=== PATIENT | male | born 1955 | race Caucasian/White ===

== ENCOUNTER 2021-11-22 11:14 | Emergency (ER) | payer MEDICARE, OTHER, SELFPAY ==
--- NOTE | ~2021-11-22 | CT_ITS ---
EXAMINATION: CT HEAD WITHOUT CONTRAST CLINICAL INFORMATION: Head trauma COMPARISON: None. TECHNIQUE: Contiguous axial imaging was performed from the skull base to vertex without intravenous administration of contrast. This CT examination was performed using dose optimization techniques as appropriate, variously including the following: *Automated exposure control *Adjustment of mA and/or kV according to patient size (this includes techniques or standardized protocols for targeted exams where dose is matched to indication/reason for exam; i.e. extremities or head) *Use of iterative reconstruction technique DLP: 1273 mGy-cm FINDINGS: There is no evidence of acute intracranial hemorrhage or territorial infarction. Chronic white matter small vessel ischemic changes. No abnormal mass effect or midline shift is seen. Ray to white matter differentiation is well preserved. No extra-axial fluid collections are identified. The ventricles are normal in size. There is no abnormal attenuation within the brain parenchyma. Soft tissue swelling with overlying skin boo along the right midline vertex the skull. Osseous structures and soft tissues are otherwise normal. The mastoid air cells and visualized portions of the paranasal sinuses are well aerated. CT/CT cervical spine wo con IMPRESSION: 1. No acute intracranial pathology. 2. Chronic white matter small vessel changes. 3. Soft tissue swelling with overlying skin boo along the right midline vertex the skull. EXAMINATION: Noncontrast CT scan of the cervical spine. INDICATION: Trauma COMPARISON: None. TECHNIQUE: Helical, multidetector axial images were obtained from the occiput to the upper thorax. Coronal and sagittal reformats of the cervical spine were provided for interpretation. DLP: 1273 mGy-cm FINDINGS: No acute fractures or dislocations of the cervical spine are seen. Multilevel degenerative changes with disc space narrowing, vacuum disc, osteophyte formation, and facet arthropathy. Anatomic alignment and positioning of the vertebral bodies and posterior elements is noted. The atlantoaxial joint and craniovertebral articulations are normal without evidence of subluxation. There is no prevertebral soft tissue swelling. The thyroid gland and visualized portions of the lung apices and mediastinum are unremarkable. Atherosclerotic calcifications are noted. IMPRESSION: 1. No acute visible fracture or dislocation. 2. Multilevel degenerative changes of the cervical spine.
[2021-11-22 11:32] VITALS: BP 154/78; PULSE 66; O2SAT 99
[2021-11-22 11:35] VITALS: BP 143/78; PULSE 88; RESP 18; TEMP 36.6; O2SAT 98; BMI 25.7
--- NOTE | 2021-11-22 11:41 | ED_ITS ---
HPI - Head Injury General Chief complaint: Head Injury Stated complaint: FALL,HIT HEAD,+CCOLLAR,ETOH USE PER EMS Time Seen by Provider: 11/22/21 11:39 Source: patient and EMS Mode of arrival: EMS Limitations: no limitations History of Present Illness HPI Narrative: 65-year-old male brought in by ambulance after fell when he was drunk. Patient lost balance and fell backward hitting his head patient was drinking at the bar, patient sustained a laceration in the back of his head that was wrapped by EMS patient persist bleeding forearm back of his scalp. Patient decline no neck pain, no back pain, no CP, no SOB, no abdominal pain, no extremity pain. Related Data Allergies Allergy/AdvReac Type Severity Reaction Status Date / Time No Known Allergies Allergy Mild NOT Unverified 12/18/19 15:52 APPLICABLE Review of Systems Review of Systems: All other systems are reviewed and are negative Constitutional: Reports as per HPI and Reports no additional constitutional complaints Eyes: Reports as per HPI and Reports no additional eye complaints Reports system reviewed and no additional complaints, except as documented Cardiovascular: Reports as per HPI and Reports no additional cardiovascular complaints Respiratory: Reports as per HPI and Reports no additional respiratory complaints Gastrointestinal: Reports as per HPI and Reports no additional gastrointestinal complaints Genitourinary: Reports no additional female genitourinary complaints Musculoskeletal: Reports no additional musculoskeletal complaints Skin/Breast: Reports system reviewed and no additional complaints, except as docu Psychiatric: Reports no additional psychiatric complaints Endocrine: Reports no additional endocrine complaints Hematologic/Lymphatic: Reports no additional hematologic/lymphatic complaints Allergic/Immunologic: Reports no additional allergic/immunologic complaints Reports system reviewed and no additional complaints, except as documented and Reports Abnormal speech present [facility] Social History Social History Advance Directives: Yes Advance Directives Information Provided: No Advance Directives on File: No Physical Exam Vital Signs: Vital Signs: Last Vital Signs Temp 98 F 11/22/21 11:35 Pulse 55 11/22/21 12:40 Resp 16 11/22/21 12:40 BP 145/85 H 11/22/21 12:40 Pulse Ox 100 11/22/21 12:40 O2 Del Method 11/22/21 12:40 BMI result Body Mass Index 25.7 Vital signs have been reviewed as appeared to be correct. Blood pressure normal. Heart rate normal. Respiration rate normal. Temperature normal. Oxygen saturation normal. Appearance: Alert. Oriented X3. No acute distress. Head: Normal external exam. Normocephalic. Atraumatic. No Webb signs noted. No raccoon eyes noted 2 cm laceration on the occipital scalp area with arterial bleeding. Eyes: PERRLA. EOMI. Conjunctiva and sclera normal. Eyelids normal. ENT: TM's Normal. Pharynx normal. Uvula midline. Moist mucous membranes. No trismus noted. No drooling noted. No muffled voice noted. Neck: Normal inspection. Neck supple. FROM. No adenopathy. Thyroid Normal. No meningeal signs. No neck mass noted. CVS: Normal heart rate and rhythm. Heart sound normal. No murmurs noted. Pulses normal throughout. Respiratory: No respiratory distress. Painless inspiration. Breath sounds normal. No wheezes/rales/rhonchi noted. Chest nontender. No accessory muscle usage noted or decreased air movement noted. Abdomen: Soft and nontender. Bowel sounds normal in all 4 quadrants. No distention noted. No organomegaly noted. No visible injury noted. Back: No CVA tenderness. Full range of motion noted. Skin: Skin warm and dry. Normal skin color. Normal skin turgor. No rashes/lesions/lacerations noted. Extremities: No lower extremity edema. Extremities exhibit normal range of motion. Extremities nontender. Neuro: Oriented X 3. Cranial nerve exam: II-XII are grossly intact No motor deficit. No sensory deficit. Reflexes normal. Course Course Course Narrative: 65-year-old male who is alcohol intoxicated brought in by ambulance after falling backward, patient sustained small laceration on the back of his scalp causing significant bleeding, able to stop bleeding by closing the laceration, patient hemodynamically stable with stable H&H. Patient will be going home with a sober adult friend. MDM - Head Injury Lab Data Attestation: I reviewed the patient's lab results. Result diagrams: 11/22/21 11:48 11/22/21 11:48 Labs: Lab Results 11/22/21 11/22/21 Range/Units 11:48 11:48 WBC 5.4 (4.8-10.8) X10*3/uL RBC 4.27 L (4.60-5.80) X10*6/uL Hgb 14.1 (14.0-18.0) g/dl Hct 41.7 L (42.0-52.0) % MCV 97.7 (80.0-98.0) fL MCH 33.0 (27.0-33.0) pg MCHC 33.8 (31.0-36.0) g/dl RDW 13.7 (11.0-16.0) % Plt Count 118 L (160-400) X10*3/uL MPV 9.4 (9.4-12.4) fL Immature Gran % (Auto) 0.4 (0.0-0.4) % Neut % (Auto) 56.7 (45-73) % Lymph % (Auto) 28.7 (20-40) % Metcalfe % (Auto) 11.2 H (2-11) % Eos % (Auto) 2.4 (0-4) % Baso % (Auto) 0.6 (0-2) % Lymph # (Auto) 1.6 (1.2-4.9) X10*3/uL Metcalfe # (Auto) 0.6 (0.1-1.2) X10*3/uL Eos # (Auto) 0.1 (0.0-0.4) X10*3/uL Baso # (Auto) 0.0 (0.0-0.2) X10*3/uL Abs Immat Gran (auto) 0.02 (0.00-0.03) X10*3/uL Absolute Neuts (auto) 3.1 (2.0-8.3) x10*3/uL Absolute Nucleated RBC 0.000 (0.0-0.012) X10*3/uL Nucleated RBC % (auto) 0.0 (0.0-0.2) /100WBC Sodium 138 (135-145) mmol/L Potassium 4.7 (3.3-5.1) mmol/L Chloride 100 (96-108) mmol/L Carbon Dioxide 29 (22-29) mmol/L Anion Gap 14 (12-20) BUN 10 (9-16) mg/dL Creatinine 0.81 (0.5-1.4) mg/dL Estim Creat Clear Calc 95.5 Estimated GFR > 60 Random Glucose 90 (60-115) mg/dL Calcium 9.1 (8.4-10.2) mg/dL Ethyl Alcohol 319 H* mg/dL Imaging Data Head CT: Attestation: I personally reviewed and interpreted this imaging study as follows: Radiologist's impression: 1.? No acute intracranial pathology. 2.? Chronic white matter small vessel changes. 3.? Soft tissue swelling with overlying skin boo along the right midline vertex the skull. ? Cervical spine CT: Attestation: I personally reviewed and interpreted this imaging study as follows: Radiologist's impression: 1.? No acute visible fracture or dislocation. 2.? Multilevel degenerative changes of the cervical spine. Procedures Laceration Laceration 1: Site: scalp Size (cm): 3 Description: linear Depth: simple, single layer Pre-repair: wound explored Skin layer closed with: other (Staple) Number of sutures: 12 Discharge Plan Discharge Clinical Impression: Closed head injury, Laceration of scalp, Alcohol intoxication Patient Disposition: Home, Self-Care Instructions: Head Injury (ED), Laceration (ED) Additional Instructions: Return to the emergency department in 10 days for staple removal ?you have 12 boo in your scalp ? Referrals: See Santiago MD [Primary Care Provider] -
[2021-11-22 11:57] LABS: MANUAL DIFF FLAG NO
[2021-11-22 12:02] LABS: Basophils Percent Auto 0.6 % (0-2); Eosinophils Absolute Auto 0.1 X10*3/uL (0.0-0.4); Eosinophils Percent Auto 2.4 % (0-4); Hematocrit 41.7 % (42.0-52.0); Hemoglobin 14.1 g/dl (14.0-18.0); Imm Gran Abs Auto 0.02 X10*3/uL (0.00-0.03); Imm Gran Pct Auto 0.4 % (0.0-0.4); Lymphocytes Absolute Auto 1.6 X10*3/uL (1.2-4.9); Lymphocytes Percent Auto 28.7 % (20-40); Mean Corpuscular HGB Conc 33.8 g/dl (31.0-36.0); Mean Corpuscular Volume 97.7 fL (80.0-98.0); Mean Platelet Volume 9.4 fL (9.4-12.4); Monocytes Absolute Auto 0.6 X10*3/uL (0.1-1.2); Monocytes Percent Auto 11.2 % (2-11); Neutrophils Absolute Auto 3.1 x10*3/uL (2.0-8.3); Neutrophils Percent Auto 56.7 % (45-73); Platelet Count 118 X10*3/uL (160-400); Red Blood Count 4.27 X10*6/uL (4.60-5.80); Red Cell Distribution Width 13.7 % (11.0-16.0); White Blood Count 5.4 X10*3/uL (4.8-10.8)
[2021-11-22 12:15] LABS: Anion Gap 14 (12-20); Blood Urea Nitrogen 10 mg/dL (9-16); Calcium 9.1 mg/dL (8.4-10.2); Carbon Dioxide 29 mmol/L (22-29); Chloride 100 mmol/L (96-108); Creatinine Clr Calc Pharmacy 95.5; Estimated Glomerular Filt Rate > 60; Ethanol 319 mg/dL; Glucose Random 90 mg/dL (60-115); Potassium 4.7 mmol/L (3.3-5.1); Sodium 138 mmol/L (135-145)
[2021-11-22 12:40] VITALS: BP 145/85; PULSE 55; RESP 16; O2SAT 100
[2021-11-22 15:58] VITALS: BP 146/83; PULSE 68; O2SAT 100
== END 2021-11-22 16:07 | disposition home or self-care (01) ==
PROVIDERS: Emergency Provider Emergency Medicine; PCP Pediatrics
DX: S01.01XA Laceration without foreign body of scalp, initial encounter (principal); R51.9 Headache, unspecified; M54.2 Cervicalgia; F10.129 Alcohol abuse with intoxication, unspecified; Y90.8 Blood alcohol level of 240 mg/100 ml or more; W01.0XXA Fall on same level from slipping, tripping and stumbling without subsequent striking against object, initial encounter; Y93.9 Activity, unspecified; Y92.9 Unspecified place or not applicable; Y99.9 Unspecified external cause status; Z79.899 Other long term (current) drug therapy
CPT/HCPCS: 12002; 36415; 70450; 72125; 80048; 82077; 85025; 99283; 99284

== ENCOUNTER 2022-12-11 09:09 | Day surgery (SDC) | payer MEDICARE, OTHER, SELFPAY ==
[2022-12-06 10:19] VITALS: BMI 25.4
--- NOTE | 2022-12-08 07:57 | MHC.SHP ---
Pre-Procedural Eval Section A Date of Service: 12/08/22 The patient is an INPATIENT: No Changes since office visit: No Cold of Flu in the past 2 weeks, No New Medical Problems, No Changes in Medication and No Patient answered all questions The History & Physical has been completed within 30 days and I have reviewed it.: Yes Section B Chief Complaint: Age-related nuclear cataract, left eye Allergies: Allergies Allergy/AdvReac Type Severity Reaction Status Date / Time No Known Allergies Allergy Mild NOT Unverified 12/18/19 15:52 APPLICABLE Plan Diagnosis/Plan: Unchanged I have reviewed the history and physical and performed a pertinent physical examination on my patient. No changes have occurred unless specified. Time Spent With Patient Time: Total time managing care of this patient today ____ minutes.
--- NOTE | 2022-12-08 12:49 | P.CONAN_ITS ---
Documented by User: Kalli Reyes NP 12/08/22 12:51 HPI - Anesthesia Eval Consult details Narrative: 66yo M for Left Cataract Extraction IOL Insertion Medically optimized No previous cataract on record. Eliquis for afib PMFSH Past Medical History Medical History (Updated 12/07/22 @ 09:30 by Jeaneth Fulton RN) Overweight with body mass index (BMI) 25.0-29.9 Hyperlipidemia Anxiety Cancer of prostate Hx of radiation therapy HTN (hypertension) Sciatica Atrial fibrillation Surgical History Surgical History (Updated 12/06/22 @ 10:18 by Jeaneth Fulton RN) History of cardiac radiofrequency ablation Social History Social History Are you a primary home care manager rn to a significant other at home: No Do you presently have visiting nurse or other home services: No Patient Tobacco Use Status: Never used Tobacco Use of substances other than those prescribed or required for medical reasons: Yes Substance Use Frequency: Occasionally Have you been hit, kicked, punched, or otherwise hurt by someone within the past year? If so, by whom?: No Advance Directives: No Advance Directives Information Provided: Yes Advance Directives on File: No Recently lost weight without trying: Yes How much weight loss: 2-13 pounds Eating poorly because of decreased appetite: Yes Nutrition screen score: 4 Nutrition Risks: No Nutritional Risk Poor oral hygiene: No Meds Allergies Allergy/AdvReac Type Severity Reaction Status Date / Time No Known Allergies Allergy Mild NOT Unverified 12/18/19 15:52 APPLICABLE Home Medications Medication Instructions Recorded Confirmed Last Taken Type allopurinol 300 mg tablet 300 mg PO BEDTIME 12/06/22 12/06/22 Unknown History amlodipine 2.5 mg tablet 2.5 mg PO BEDTIME 12/06/22 12/06/22 Unknown History apixaban 5 mg tablet (Eliquis) 5 mg PO BID 12/06/22 12/06/22 12/10/22 History flecainide 150 mg tablet 150 mg PO BEDTIME 12/06/22 12/06/22 Unknown History gabapentin 300 mg capsule 300 mg PO BID 12/06/22 12/06/22 Unknown History indomethacin 25 mg capsule 25 mg PO DAILY PRN Pain 12/06/22 12/06/22 Unknown History metoprolol succinate 50 mg 50 mg PO BEDTIME 12/06/22 12/06/22 Unknown History tablet,extended release 24 hr omeprazole 20 mg capsule,delayed 20 mg PO BEDTIME 12/06/22 12/06/22 Unknown History release lisinopril 20 mg tablet 20 mg PO DAILY 12/07/22 12/07/22 Unknown History Exam Exam Date and Time: December 08, 2022 1249 Height,Weight and Vital Signs: Height 5 ft 10 in Weight 80.286 kg Assessment and Plan Assessment Anesthesia Assessment: Chart Reviewed Documented by User: Erin Barrett MD 12/11/22 10:52 PMFSH Active Problems Active Problems: Gout GERD H/o ETOH abuse. Seen in ER 10/2022 with scalp laceration secondary to fall while intoxicated Past Medical History Medical History (Updated 12/07/22 @ 09:30 by Jeaneth Fulton RN) Overweight with body mass index (BMI) 25.0-29.9 Hyperlipidemia Anxiety Cancer of prostate Hx of radiation therapy HTN (hypertension) Sciatica Atrial fibrillation Family History Family history of problems with anesthesia: No Surgical History Surgical History (Updated 12/06/22 @ 10:18 by Jeaneth Fulton RN) History of cardiac radiofrequency ablation History of Problems with Anesthesia: No Social History Social History Are you a primary home care manager rn to a significant other at home: No Do you presently have visiting nurse or other home services: No Patient Tobacco Use Status: Never used Tobacco Use of substances other than those prescribed or required for medical reasons: Yes Substance Use Frequency: Occasionally Have you been hit, kicked, punched, or otherwise hurt by someone within the past year? If so, by whom?: No Advance Directives: No Advance Directives Information Provided: Yes Advance Directives on File: No Recently lost weight without trying: Yes How much weight loss: 2-13 pounds Eating poorly because of decreased appetite: Yes Nutrition screen score: 4 Nutrition Risks: No Nutritional Risk Poor oral hygiene: No Meds Allergies Allergy/AdvReac Type Severity Reaction Status Date / Time No Known Allergies Allergy Mild NOT Unverified 12/18/19 15:52 APPLICABLE Home Medications Medication Instructions Recorded Confirmed Last Taken Type allopurinol 300 mg tablet 300 mg PO BEDTIME 12/06/22 12/06/22 Unknown History amlodipine 2.5 mg tablet 2.5 mg PO BEDTIME 12/06/22 12/06/22 Unknown History apixaban 5 mg tablet (Eliquis) 5 mg PO BID 12/06/22 12/06/22 12/10/22 History flecainide 150 mg tablet 150 mg PO BEDTIME 12/06/22 12/06/22 Unknown History gabapentin 300 mg capsule 300 mg PO BID 12/06/22 12/06/22 Unknown History indomethacin 25 mg capsule 25 mg PO DAILY PRN Pain 12/06/22 12/06/22 Unknown History metoprolol succinate 50 mg 50 mg PO BEDTIME 12/06/22 12/06/22 Unknown History tablet,extended release 24 hr omeprazole 20 mg capsule,delayed 20 mg PO BEDTIME 12/06/22 12/06/22 Unknown History release lisinopril 20 mg tablet 20 mg PO DAILY 12/07/22 12/07/22 Unknown History Exam Height,Weight and Vital Signs: Height 5 ft 10 in Weight 80.286 kg Vital Signs Temp Pulse Resp BP Pulse Ox O2 Del Method 12/11/22 10:12 97.1 F 55 18 158/85 H 100 Room Air Airway Mallampati Class: II TM Dist: >3cm Neck ROM: Full Loose/Missing/Broken Teeth: Yes (Some missing, some broken teeth) Heart: RRR Lungs: CTAB Assessment and Plan Assessment Anesthesia Assessment: Anesthesia Plan Discussed Final Anesthetic Review Family History of Problems with Anesthesia: No History of Problems with Anesthesia: No NPO: Yes ASA Class: III Final Preanesthetic Review: No Changes in Pt Med Stat, Meds/Allgs Chart Reviewed, Consent Obtained/Reviewed and Anes Risks/Benef Reviewed Patient Risk: Intermediate Procedure Risk: Low Assessment/Block/Sedation in SS: Assess/Block/Sedation-SS Anesthetic Plan Anesthetic Plan: MAC: Disposition: Standard PACU
[2022-12-11 10:12] VITALS: BP 158/85; PULSE 55; RESP 18; TEMP 36.2; O2SAT 100; BMI 25.8
[2022-12-11] MEDS: Cyclopentolate 1 % Ophth Sol 2 ML DRPBTL 1 DROP EYE-LEFT ×3 (10:29→10:35)
[2022-12-11] MEDS: Tetracaine HCl/PF 0.5% Oph Sol 4 ML DROPS 1 DROP EYE-LEFT (10:29)
[2022-12-11] MEDS: Ketorolac Tromethamine 0.5% Op 5 ML DROPS 1 DROP EYE-LEFT ×3 (10:29→10:35)
[2022-12-11] MEDS: Lactated Ringers 500 ML 50 ML IV (10:29)
[2022-12-11] MEDS: Tropicamide 1 % Ophth Sol 3 ML BTL 1 DROP EYE-LEFT ×3 (10:30→10:35)
[2022-12-11] MEDS: Phenylephrine HCL 2.5% Oph SoL 2 ML BOTTLE 1 DROP EYE-LEFT ×2 (10:30→10:33)
--- NOTE | 2022-12-11 11:02 | HO.PNOPHT ---
Ophthalmology Procedure Procedure Date of Service: 12/11/22 Ophthalmology Viscoelastic: Healvianca Vazquezt Dual Pack Pro Ophthalmology Lenses: TECSUZY [id number] (19) Procedure Notes: PREOPERATIVE DIAGNOSIS: Decreased visual acuity left eye secondary to cataract POSTOPERATIVE DIAGNOSIS: Same PROCEDURE: Left cataract extraction with intraocular lens insertion SURGEON: Rk Slater M.D. ANESTHESIA: Topical/MAC ESTIMATED BLOOD LOSS: None COMPLICATIONS: None After obtaining informed consent, the patient was brought to the operation room suite and placed in the supine position. After adequate sedation per anesthesia, topical drops of Tetracaine were given to the left eye. The eye was then prepped and draped in the usual sterile fashion. The operating room microscope was then positioned over the operative eye and a lid speculum placed. A paracentesis was created. Viscoelastic was then instilled into the anterior chamber. A three plane incision was then created temporally, utilizing a 2.85 mm keratome. Capsulotomy forceps were then utilized to create a circular tear capsulotomy. Hydrodissection and hydrodelineation were carried out until adequate mobilization of the nucleus occurred. Phacoemulsification was then utilized to remove the dense central nucleus followed by removal of the cortical material utilizing the automated aspiration irrigation unit. Viscoat elastic was instilled into the posterior capsular bag followed by placement of a posterior chamber intraocular lens without difficulty. The residual Viscoat elastic was then removed utilizing the automated IA machine. The wound was check and found to be watertight. The patient tolerated the procedure well and the lid speculum was removed. Intracameral injection of Vigamox 0.1 mL followed by a subtenon injection of Kenalog-40 0.2 mL were administered. The patient will be seen in the a.m.
[2022-12-11 11:27] VITALS: BP 114/78; PULSE 55; RESP 18; TEMP 36.8; O2SAT 100
== END 2022-12-11 11:38 | disposition home or self-care (01) ==
PROVIDERS: PCP Pediatrics; Visit Provider Ophthalmology
PROC: (CPT 66985; principal; 2022-12-11 11:40)
DX: H25.12 Age-related nuclear cataract, left eye (principal); H54.7 Unspecified visual loss; I10 Essential (primary) hypertension; I48.91 Unspecified atrial fibrillation; E78.00 Pure hypercholesterolemia, unspecified; Z85.46 Personal history of malignant neoplasm of prostate; Z79.01 Long term (current) use of anticoagulants; Z79.899 Other long term (current) drug therapy
CPT/HCPCS: 66984; J2250; J3010; J3301; V2632

== ENCOUNTER 2022-12-18 07:33 | Day surgery (SDC) | payer MEDICARE, OTHER, SELFPAY ==
[2022-12-06 10:31] VITALS: BMI 25.4
--- NOTE | 2022-12-15 08:07 | MHC.SHP ---
Pre-Procedural Eval Section A Date of Service: 12/15/22 The patient is an INPATIENT: No Changes since office visit: No Cold of Flu in the past 2 weeks, No New Medical Problems, No Changes in Medication and No Patient answered all questions The History & Physical has been completed within 30 days and I have reviewed it.: Yes Section B Chief Complaint: Age-related nuclear cataract, right eye Allergies: Allergies Allergy/AdvReac Type Severity Reaction Status Date / Time No Known Allergies Allergy Mild NOT Unverified 12/18/19 15:52 APPLICABLE Plan Diagnosis/Plan: Unchanged I have reviewed the history and physical and performed a pertinent physical examination on my patient. No changes have occurred unless specified. Time Spent With Patient Time: Total time managing care of this patient today ____ minutes.
[2022-12-18 07:44] VITALS: BP 161/96; PULSE 70; RESP 20; TEMP 36.1; O2SAT 98
--- NOTE | 2022-12-18 07:56 | HO.ANESPROP2 ---
HPI - Anesthesia Eval Consult details Narrative: 66 M for right cataract extraction [facility] Past Medical History Medical History (Updated 12/07/22 @ 09:30 by Jeaneth Fulton RN) Overweight with body mass index (BMI) 25.0-29.9 Hyperlipidemia Anxiety Cancer of prostate Hx of radiation therapy HTN (hypertension) Sciatica Atrial fibrillation Functional capacity: independent ambulation Family History Family history of problems with anesthesia: No Surgical History Surgical History (Updated 12/06/22 @ 10:18 by Jeaneth Fulton RN) History of cardiac radiofrequency ablation History of Problems with Anesthesia: No Social History Social History Are you a primary career and technology education teacher to a significant other at home: No Do you presently have visiting nurse or other home services: No Patient Tobacco Use Status: Never used Tobacco Use of substances other than those prescribed or required for medical reasons: Yes Substance Use Frequency: Occasionally Have you been hit, kicked, punched, or otherwise hurt by someone within the past year? If so, by whom?: No Advance Directives: No Advance Directives Information Provided: Yes Advance Directives on File: No Recently lost weight without trying: Yes How much weight loss: 2-13 pounds Eating poorly because of decreased appetite: Yes Nutrition screen score: 4 Nutrition Risks: No Nutritional Risk Poor oral hygiene: No Meds Allergies Allergy/AdvReac Type Severity Reaction Status Date / Time No Known Allergies Allergy Mild NOT Unverified 12/18/19 15:52 APPLICABLE Home Medications Medication Instructions Recorded Confirmed Last Taken Type allopurinol 300 mg tablet 300 mg PO BEDTIME 12/06/22 12/06/22 Unknown History amlodipine 2.5 mg tablet 2.5 mg PO BEDTIME 12/06/22 12/06/22 Unknown History apixaban 5 mg tablet (Eliquis) 5 mg PO BID 12/06/22 12/06/22 12/10/22 History flecainide 150 mg tablet 150 mg PO BEDTIME 12/06/22 12/06/22 Unknown History gabapentin 300 mg capsule 300 mg PO BID 12/06/22 12/06/22 Unknown History indomethacin 25 mg capsule 25 mg PO DAILY PRN Pain 12/06/22 12/06/22 Unknown History metoprolol succinate 50 mg 50 mg PO BEDTIME 12/06/22 12/06/22 Unknown History tablet,extended release 24 hr omeprazole 20 mg capsule,delayed 20 mg PO BEDTIME 12/06/22 12/06/22 Unknown History release lisinopril 20 mg tablet 20 mg PO DAILY 12/07/22 12/07/22 Unknown History Exam Exam Date and Time: December 18, 2022 0756 Height,Weight and Vital Signs: Height 5 ft 10 in Weight 80.286 kg Last Vital Signs Temp 97 F 12/18/22 07:44 Pulse 70 12/18/22 07:44 Resp 20 12/18/22 07:44 BP 161/96 H 12/18/22 07:44 Pulse Ox 98 12/18/22 07:44 O2 Del Method Room Air 12/18/22 07:44 Airway Mallampati Class: III Loose/Missing/Broken Teeth: Yes (chipped ) Assessment and Plan Assessment Anesthesia Assessment: Anesthesia Plan Discussed and Chart Reviewed Final Anesthetic Review Family History of Problems with Anesthesia: No History of Problems with Anesthesia: No NPO: Yes ASA Class: III Final Preanesthetic Review: Meds/Allgs Chart Reviewed, Consent Obtained/Reviewed and Anes Risks/Benef Reviewed Patient Risk: Intermediate Procedure Risk: Intermediate Anesthetic Plan Anesthetic Plan: MAC: and Agree w/ Assess. and Plan Disposition: Standard PACU
--- NOTE | 2022-12-18 08:14 | HO.PNOPHT ---
Ophthalmology Procedure Procedure Date of Service: 12/18/22 Ophthalmology Viscoelastic: Healvianca Duet Dual Pack Pro Ophthalmology Lenses: TECNIS [id number] (19.5) Procedure Notes: PREOPERATIVE DIAGNOSIS: Decreased visual acuity right eye secondary to cataract POSTOPERATIVE DIAGNOSIS: Same PROCEDURE: Right cataract extraction with intraocular lens insertion SURGEON: Rk Slater M.D. ANESTHESIA: Topical/MAC ESTIMATED BLOOD LOSS: None COMPLICATIONS: None After obtaining informed consent, the patient was brought to the operating room suite and placed in the supine position. After adequate sedation per anesthesia, topical drops of Tetracaine were given to the right eye. The eye was then prepped and draped in the usual sterile fashion. The operating room microscope was then positioned over the operative eye and a lid speculum placed. A paracentesis was created. Viscoelastic was then instilled into the anterior chamber. A three plane incision was then created temporally, utilizing a 2.85 mm keratome. Capsulotomy forceps were then utilized to create a circular tear capsulotomy. Hydrodissection and hydrodelineation were carried out until adequate mobilization of the nucleus occurred. Phacoemulsification was then utilized to remove the dense central nucleus followed by removal of the cortical material utilizing the automated aspiration irrigation unit. Viscoelastic was instilled into the posterior capsular bag followed by placement of a posterior chamber intraocular lens without difficulty. The residual Viscoelastic was then removed utilizing the automated IA machine. The wound was checked and found to be watertight. The patient tolerated the procedure well and the lid speculum was removed. Intracameral injection of Vigamox 0.1 mL followed by a subtenon injection of Kenalog-40 0.2 mL were administered. The patient will be seen in the a.m.
[2022-12-18 08:36] VITALS: BP 150/89; PULSE 68; RESP 19; TEMP 36.4; O2SAT 100
== END 2022-12-18 08:50 | disposition home or self-care (01) ==
PROVIDERS: PCP Pediatrics; Visit Provider Ophthalmology
PROC: (CPT 66985; principal; 2022-12-18 08:50)
DX: H25.11 Age-related nuclear cataract, right eye (principal); H54.7 Unspecified visual loss; I10 Essential (primary) hypertension; E78.5 Hyperlipidemia, unspecified; I48.0 Paroxysmal atrial fibrillation; Z85.46 Personal history of malignant neoplasm of prostate; Z79.01 Long term (current) use of anticoagulants; Z79.899 Other long term (current) drug therapy
CPT/HCPCS: 66984; J2250; J3010; J3301; V2632

== ENCOUNTER 2024-02-19 11:22 | Day surgery (SDC) | payer MEDICARE, OTHER, SELFPAY ==
[2024-02-15 14:16] VITALS: BMI 26.3
--- NOTE | 2024-02-18 10:14 | P.CONAN_ITS ---
Documented by User: Kalli Reyes NP 02/18/24 10:49 HPI - Anesthesia Eval Consult details Narrative: 68yo M for Colonoscopy Eliquis for afib and s/p ablation 2012. Follows [facility]. Stable at 06/2023 office visit [facility] Past Medical History Medical History History of tremor GERD (gastroesophageal reflux disease) Overweight with body mass index (BMI) 25.0-29.9 Hyperlipidemia Anxiety Cancer of prostate Hx of radiation therapy HTN (hypertension) Sciatica Atrial fibrillation Family History Family history of problems with anesthesia: No Surgical History Surgical History H/O colonoscopy Hx of cataract extraction History of cardiac radiofrequency ablation History of Problems with Anesthesia: No Social History Social History Are you a primary care analyst to a significant other at home: No Do you presently have visiting nurse or other home services: No Patient Tobacco Use Status: Never used Tobacco Have you been hit, kicked, punched, or otherwise hurt by someone within the past year? If so, by whom?: No Are you DNR?: No Advance Directives: No Advance Directives Information Provided: Yes Recently lost weight without trying: No Meds Allergies Allergy/AdvReac Type Severity Reaction Status Date / Time No Known Allergies Allergy Mild NOT Unverified 12/18/19 15:52 APPLICABLE Home Medications ?Medication ?Instructions ?Recorded ?Confirmed ?Last Taken ?Type allopurinol 300 mg tablet 300 mg PO BEDTIME 12/06/22 02/15/24 Unknown History amlodipine 2.5 mg tablet 2.5 mg PO BEDTIME 12/06/22 02/15/24 Unknown History apixaban 5 mg tablet (Eliquis) 5 mg PO BID 12/06/22 02/15/24 12/10/22 History flecainide 150 mg tablet 150 mg PO BEDTIME 12/06/22 02/15/24 Unknown History gabapentin 300 mg capsule 300 mg PO BID 12/06/22 02/15/24 Unknown History metoprolol succinate 50 mg 50 mg PO BEDTIME 12/06/22 02/15/24 Unknown History tablet,extended release 24 hr omeprazole 20 mg capsule,delayed 20 mg PO BEDTIME 12/06/22 02/15/24 Unknown History release Exam Height,Weight and Vital Signs: Height 5 ft 10.5 in Weight 84.368 kg Narrative Narrative: ECG 12-Lead ? 08:25:09 Ventricular Rate: 58 BPM Atrial Rate: 58 BPM P-R Interval: 288 ms QRS Duration: 78 ms Q-T Interval: 476 ms QTC Calculation(Bazett): 467 ms P [place]: 75 degrees R [place]: -13 degrees T [place]: 29 degrees Sinus bradycardia with 1st degree A-V block Otherwise normal ECG When compared with ECG of 27-NOV-2022 10:34, Premature atrial complexes are no longer Present Confirmed by MORENO PRETTY MD ([id number]) on 06/28/2023 8:35:31 AM [place]: MORENO PRETTY MD ? Assessment and Plan Assessment Anesthesia Assessment: Chart Reviewed Final Anesthetic Review Family History of Problems with Anesthesia: No History of Problems with Anesthesia: No Documented by User: Panfilo Snowden MD 02/19/24 12:55 PMFSH Past Medical History Medical History History of tremor GERD (gastroesophageal reflux disease) Overweight with body mass index (BMI) 25.0-29.9 Hyperlipidemia Anxiety Cancer of prostate Hx of radiation therapy HTN (hypertension) Sciatica Atrial fibrillation Surgical History Surgical History H/O colonoscopy Hx of cataract extraction History of cardiac radiofrequency ablation Social History Social History Are you a primary care analyst to a significant other at home: No Do you presently have visiting nurse or other home services: No Patient Tobacco Use Status: Never used Tobacco Have you been hit, kicked, punched, or otherwise hurt by someone within the past year? If so, by whom?: No Are you DNR?: No Advance Directives: No Advance Directives Information Provided: Yes Recently lost weight without trying: No Meds Allergies Allergy/AdvReac Type Severity Reaction Status Date / Time No Known Allergies Allergy Mild NOT Unverified 12/18/19 15:52 APPLICABLE Home Medications ?Medication ?Instructions ?Recorded ?Confirmed ?Last Taken ?Type allopurinol 300 mg tablet 300 mg PO BEDTIME 12/06/22 02/15/24 Unknown History amlodipine 2.5 mg tablet 2.5 mg PO BEDTIME 12/06/22 02/15/24 Unknown History apixaban 5 mg tablet (Eliquis) 5 mg PO BID 12/06/22 02/15/24 12/10/22 History flecainide 150 mg tablet 150 mg PO BEDTIME 12/06/22 02/15/24 Unknown History gabapentin 300 mg capsule 300 mg PO BID 12/06/22 02/15/24 Unknown History metoprolol succinate 50 mg 50 mg PO BEDTIME 12/06/22 02/15/24 Unknown History tablet,extended release 24 hr omeprazole 20 mg capsule,delayed 20 mg PO BEDTIME 12/06/22 02/15/24 Unknown History release Exam Airway Mallampati Class: II TM Dist: >3cm Neck ROM: Full Assessment and Plan Assessment Anesthesia Assessment: Anesthesia Plan Discussed Final Anesthetic Review NPO: Yes ASA Class: III Final Preanesthetic Review: No Changes in Pt Med Stat, Meds/Allgs Chart Reviewed, Consent Obtained/Reviewed and Anes Risks/Benef Reviewed Patient Risk: Intermediate Procedure Risk: Low Anesthetic Plan Anesthetic Plan: MAC: Disposition: Standard PACU
[2024-02-19 11:36] VITALS: BP 171/84; PULSE 110; RESP 18; TEMP 36.1; O2SAT 98; BMI 26.1
[2024-02-19] MEDS: Lactated Ringers 1,000 ML 100 ML IVCONT (11:48)
--- NOTE | 2024-02-19 11:54 | MHC.SHP ---
Pre-Procedural Eval Section A - 24 Hr Update-Section A only Date of Service: 02/19/24 The patient is an INPATIENT: No Changes since office visit: No Cold of Flu in the past 2 weeks, No New Medical Problems, No Changes in Medication and No Patient answered all questions The patient has been examined within 24 hours of the surgical procedure. The History & Physical has been completed within 30 days and I have reviewed it.: Yes Section B - Complete if H&P > 30 days Chief Complaint: Encounter for screening for malignant neoplasm of Allergies: Allergies Allergy/AdvReac Type Severity Reaction Status Date / Time No Known Allergies Allergy Mild NOT Unverified 12/18/19 15:52 APPLICABLE Plan I have reviewed the history and physical and performed a pertinent physical examination on my patient. No changes have occurred unless specified. Time Spent With Patient Time: Total time managing care of this patient today ____ minutes.
[2024-02-19 12:44] VITALS: BP 140/80; PULSE 85; RESP 16; TEMP 36.6; O2SAT 99
[2024-02-19 12:59] VITALS: BP 151/73; PULSE 85; RESP 16; TEMP 36.1; O2SAT 99
--- NOTE | 2024-02-19 13:08 | OP_ITS ---
DATE OF SERVICE: 02/19/2024 SURGEON: John Austin MD INDICATIONS: Colon cancer screening and prior history of colon polyps. PREOPERATIVE DIAGNOSIS: POSTOPERATIVE DIAGNOSIS: PROCEDURE PERFORMED: Colonoscopy to the terminal ileum with biopsy and snare polypectomy. ESTIMATED BLOOD LOSS: COMPLICATIONS: ANESTHESIA: Monitored anesthesia care. ASSISTANTS: SPECIMENS: DESCRIPTION OF PROCEDURE: A history and physical was performed. The risks and benefits of the procedure were explained to the patient, and informed consent was obtained. The patient was placed in the left lateral decubitus position. A digital rectal exam was performed and was found to be normal. The Olympus pediatric video colonoscope was introduced into the rectum and advanced to the cecum. The cecum was identified by transillumination, palpation, and identification of ileocecal valve. Examination was performed. The scope was removed. He tolerated the procedure well and was taken to the recovery area in stable condition. FINDINGS: The terminal ileum was examined and appeared normal. The visualized colonic mucosa was normal except in the rectum where there were telangiectasias consistent with his previous history of radiation therapy for prostate cancer. Two polyps were identified. The first was removed with a biopsy forceps and was located in the right colon. The second was located at 20 cm and was removed with a cold snare. Both polyps measured less than 10 mm. Retroflexed examination showed some internal hemorrhoids. IMPRESSION: Colon polyps. RECOMMENDATION: Follow up the biopsy results. MD DANDRE Fofana/SHELBIE / [id number]
== END 2024-02-19 13:40 | disposition home or self-care (01) ==
PROVIDERS: PCP Pediatrics; Visit Provider Internal Medicine Gastroenterology
PROC: 0DJD8ZZ Inspection of Lower Intestinal Tract, Via Natural or Artificial Opening Endoscopic (ICD-10-PCS; CPT 45378; principal; 2024-02-19 13:00)
DX: Z12.11 Encounter for screening for malignant neoplasm of colon (principal); D12.5 Benign neoplasm of sigmoid colon; D12.6 Benign neoplasm of colon, unspecified; K64.8 Other hemorrhoids; Z86.0101 Personal history of adenomatous and serrated colon polyps; I10 Essential (primary) hypertension; E78.5 Hyperlipidemia, unspecified; I48.91 Unspecified atrial fibrillation; K21.9 Gastro-esophageal reflux disease without esophagitis; Z85.46 Personal history of malignant neoplasm of prostate; Z92.3 Personal history of irradiation; Z79.01 Long term (current) use of anticoagulants
CPT/HCPCS: 45385; 45380; 88305; J2003; J2704

== ENCOUNTER 2025-03-06 07:02 | Outpatient (REF) | payer MEDICARE, OTHER, SELFPAY ==
--- OUTSIDE RECORDS SUMMARY | 2025-03-06 07:06 | XMS_ITS | Continuity of Care Document ---
Author Organization [facility], Main Office Address [address] [facility] [address] [place] [id number] Care Team Providers Care Senior Account Manager Name Role Phone SEE LAU Primary Care Provider MORENO PRETTY Truck Driver Teamster EB JORDAN Fire Regulator ROEL GUERRREO Urologist CALLY STOUT Radiation Oncologist [phone] CHRISTOPHER CARVER Drawing Press Operator AYAAN AUSTIN JR Extension Service Advisor Assessment No assessment recorded. Plan of Treatment Reminders Order Date Submit Date Provider Last Modified By Organization Details Last Modified Time Details Appointments FOLLOW UP 2024 10:00A M See Lau MD Not available Not available Not available Lab CBC w/ auto diff 2024 025 DAVID [facility] (Centralized Electronic Ordering - All Locations), Patient Can Go To The Location Of Their Choice, [id number] 02/10/2025 12:06:13 amylase + lipase, serum 2024 025 DAVID [facility] (Centralized Electronic Ordering - All Locations), Patient Can Go To The Location Of Their Choice, [address] 02/10/2025 12:06:14 CMP, serum or plasma 2024 025 DAVID [facility] (Centralized Electronic Ordering - All Locations), Patient Can Go To The Location Of Their Choice, [id number] 02/10/2025 12:06:11 TSH, ultra-sen sitive, serum 2024 025 DAVID [facility] (Centralized Electronic Ordering - All Locations), Patient Can Go To The Location Of Their Choice, [address] 02/10/2025 12:06:14 Referral gastroent erologist referral - for evaluatio n and guidance regarding cirrhosis /GERD, considera tion of EGD to rule out varices. 2024 025 ATHENAFARuthann Austin Jr, MD, [address] [place] [address] [place], [address], 02/10/2025 15:04:04 Procedures None recorded. Surgeries None recorded. Imaging None recorded. Medication Orders None recorded. Patient TargetsNo targets recorded. Patient Instructions Encounter Date Encounter Id Patient Instructions Last Modified By Organization Details Last Modified Time 02/09/2025 [id number] alcohol detoxification and withdrawal: care instructions Not available 02/09/2025 14:50:29 substance use disorder: care instructions Not available 02/09/2025 14:50:29 hiccups: care instructions Not available 02/09/2025 14:32:32 I have reviewed the note and agree with the assessment and plan of care. [email or web address] Not available 02/10/2025 06:36:54 Reason for Referral Extension Service Advisor Referral for Early cirrhosis for evaluation and guidance regarding cirrhosis/GERD, consideration of EGD to rule out varices. Referring Physician: Sabrina Bauer, Family Medicine, Encounter Date: 02/09/2025 Results Created Date Observation Date Name Description Value Unit Range Abnormal Flag Note LastModifiedBy Organization Detail LastModifiedTime 02/10/2002/10/2025 CMP14 +EGFR glucose 92 mg/dL 70-99 normal Not Available [facility] ([facility]) [address] [facility], [place], [address], 02/10/2025 12:06:11 02/10/20 25 02/10/2025 CMP14 +EGFR BUN 11 mg/dL 8-27 normal Not Available [facility] ([facility]) [address] [facility], [place], [address], 02/10/2025 12:06:11 02/10/20 25 02/10/2025 CMP14 +EGFR creatinine 0.89 mg/dL 0.76-1 .27 normal Not Available [facility] ([facility]) [address] [facility], [place], [address], 02/10/2025 12:06:11 02/10/20 25 02/10/2025 CMP14 +EGFR eGFR 92 mL/mi n/1.7 3 >59 normal Not Available [facility] ([facility]) [address] [facility], [place], [address], 02/10/2025 12:06:11 02/10/20 25 02/10/2025 CMP14 +EGFR BUN/creatini ne ratio 12 10-24 normal Not Available [facility] ([facility]) [address] [facility], [place], [address], 02/10/2025 12:06:11 02/10/20 25 02/10/2025 CMP14 +EGFR sodium 137 mmol/ L 134-14 4 normal Not Available [facility] ([facility]) [address] [facility], [place], [address], 02/10/2025 12:06:11 02/10/20 25 02/10/2025 CMP14 +EGFR potassium 3.7 mmol/ L 3.5-5. 2 normal Not Available [facility] ([facility]) [address] [facility], [place], [address], 02/10/2025 12:06:11 02/10/20 25 02/10/2025 CMP14 +EGFR chloride 99 mmol/ L 96-106 normal Not Available [facility] ([facility]) [address] [place], [address], 02/10/2025 12:06:11 02/10/20 25 02/10/2025 CMP14 +EGFR carbon dioxide, total 26 mmol/ L 20-29 normal Not Available [facility] ([facility]) [address] [facility] [place], [address], 02/10/2025 12:06:11 02/10/2002/10/2025 CMP14 +EGFR calcium 9.1 mg/dL 8.6-10 .2 normal Not Available [facility] ([facility]) [address] [place], [address], 02/10/2025 12:06:11 02/10/2002/10/2025 CMP14 +EGFR protein, total 7.2 g/dL 6.0-8. 5 normal Not Available [facility] ([facility]) [address] [place], [address], 02/10/2025 12:06:11 02/10/2002/10/2025 CMP14 +EGFR albumin 3.7 g/dL 3.9-4. 9 below low normal Not Available [facility] ([facility]) [address] [facility], [place], [address], 02/10/2025 12:06:11 02/10/2002/10/2025 CMP14 +EGFR globulin, total 3.5 g/dL 1.5-4. 5 Not Available [facility] ([facility]) [address] [place] [place], [address], 02/10/2025 12:06:11 02/10/2002/10/2025 CMP14 +EGFR bilirubin, total 4.4 mg/dL 0.0-1. 2 above high normal Not Available [facility] ([facility]) [address] [place] [place], [address], 02/10/2025 12:06:11 02/10/2002/10/2025 CMP14 +EGFR alkaline phosphatase 129 IU/L 47-123 above high normal Not Available [facility] ([facility]) [address] [place] [place], [address], 02/10/2025 12:06:11 02/10/2002/10/2025 CMP14 +EGFR AST (SGOT) 71 IU/L 0-40 above high normal Not Available [facility] ([facility]) [address] [place], [address], 02/10/2025 12:06:11 02/10/2002/10/2025 CMP14 +EGFR ALT (SGPT) 17 IU/L 0-44 normal Not Available [facility] ([facility]) [address] [place], [address], 02/10/2025 12:06:11 02/10/2002/10/2025 CBC WITH DIFFE RENTI AL/PL ATELE T WBC 10.6 x10e3 /uL 3.4-10 .8 normal Not Available [facility] ([facility]) [address] [place], [address], 02/10/2025 12:06:13 02/10/2002/10/2025 CBC WITH DIFFE RENTI AL/PL ATELE T RBC 4.04 x10e6 /uL 4.14-5 .80 below low normal Not Available [facility] ([facility]) [address] [place], [address], 02/10/2025 12:06:13 02/10/2002/10/2025 CBC WITH DIFFE RENTI AL/PL ATELE T hemoglobin 13.5 g/dL 13.0-1 7.7 normal Not Available [facility] ([facility]) [address] [place], [address], 02/10/2025 12:06:13 02/10/2002/10/2025 CBC WITH DIFFE RENTI AL/PL ATELE T hematocrit 40.6 % 37.5-5 1.0 normal Not Available [facility] ([facility]) [address] [place], [address], 02/10/2025 12:06:13 02/10/2024 0202/10/2025 CBC WITH DIFFE RENTI AL/PL ATELE T MCV 101 fL 79-97 above high normal Not Available [facility] ([facility]) [address] [place], [address], 02/10/2025 12:06:13 02/10/20 25 02/10/2025 CBC WITH DIFFE RENTI AL/PL ATELE T MCH 33.4 pg 26.6-3 3.0 above high normal Not Available [facility] ([facility]) [address] [place], [address], 02/10/2025 12:06:13 02/10/2002/10/2025 CBC WITH DIFFE RENTI AL/PL ATELE T MCHC 33.3 g/dL 31.5-3 5.7 normal Not Available [facility] ([facility]) [address] [place], [address], 02/10/2025 12:06:13 02/10/20 25 02/10/2025 CBC WITH DIFFE RENTI AL/PL ATELE T RDW 12.3 % 11.6-1 5.4 Not Available [facility] ([facility]) [address] [place], [address], 02/10/2025 12:06:13 02/10/20 25 02/10/2025 CBC WITH DIFFE RENTI AL/PL ATELE T platelets 80 x10e3 /uL 150-45 0 alert low Actua l plate let count may be somew hat highe r than repor miguel due to aggre gatio n of plate lets in this sampl e. Not Available [facility] ([facility]) [address] [place], [address], 02/10/2025 12:06:13 02/10/20 25 02/10/2025 CBC WITH DIFFE RENTI AL/PL ATELE T neutrophils 74 % not estab. normal Not Available [facility] ([facility]) [address] [place], [address], 02/10/2025 12:06:13 02/10/20 25 02/10/2025 CBC WITH DIFFE RENTI AL/PL ATELE T lymphs 17 % not estab. normal Not Available [facility] ([facility]) [address] [facility], [place], [address], 02/10/2025 12:06:13 02/10/20 25 02/10/2025 CBC WITH DIFFE RENTI AL/PL ATELE T monocytes 5 % not estab. normal Not Available [facility] ([facility]) [address] [facility], [place], [address], 02/10/2025 12:06:13 02/10/2002/10/2025 CBC WITH DIFFE RENTI AL/PL ATELE T eos 3 % not estab. normal Not Available [facility] ([facility]) [address] [facility], [place], [address], 02/10/2025 12:06:13 02/10/2002/10/2025 CBC WITH DIFFE RENTI AL/PL ATELE T basos 1 % not estab. normal Not Available [facility] ([facility]) [address] [facility], [place], [address], 02/10/2025 12:06:13 02/10/20 25 02/10/2025 CBC WITH DIFFE RENTI AL/PL ATELE T immature cells COMMISSIONS COORDINATOR Not Available [facility] ([facility]) [address] [facility], [place], [address], 02/10/2025 12:06:13 02/10/2002/10/2025 CBC WITH DIFFE RENTI AL/PL ATELE T neutrophils (absolute) 7.8 x10e3 /uL 1.4-7. 0 above high normal Not Available [facility] ([facility]) [address] [facility], [place], [address], 02/10/2025 12:06:13 02/10/20 25 02/10/2025 CBC WITH DIFFE RENTI AL/PL ATELE T lymphs (absolute) 1.8 x10e3 /uL 0.7-3. 1 normal Not Available [facility] ([facility]) [address] [facility], [place], [address], 02/10/2025 12:06:13 02/10/20 25 02/10/2025 CBC WITH DIFFE RENTI AL/PL ATELE T monocytes(ab solute) 0.6 x10e3 /uL 0.1-0. 9 normal Not Available [facility] ([facility]) [address] [place], [address], 02/10/2025 12:06:13 02/10/20 25 02/10/2025 CBC WITH DIFFE RENTI AL/PL ATELE T eos (absolute) 0.3 x10e3 /uL 0.0-0. 4 normal Not Available [facility] ([facility]) [address] [facility], [place], [address], 02/10/2025 12:06:13 02/10/20 25 02/10/2025 CBC WITH DIFFE RENTI AL/PL ATELE T baso (absolute) 0.1 x10e3 /uL 0.0-0. 2 normal Not Available [facility] ([facility]) [address] [place], [address], 02/10/2025 12:06:13 02/10/20 25 02/10/2025 CBC WITH DIFFE RENTI AL/PL ATELE T immature granulocytes 0 % not estab. Not Available [facility] ([facility]) [address] [place], [address], 02/10/2025 12:06:13 02/10/20 25 02/10/2025 CBC WITH DIFFE RENTI AL/PL ATELE T immature grans (abs) 0.0 x10e3 /uL 0.0-0. 1 Not Available [facility] ([facility]) [address] [facility], [place], [address], 02/10/2025 12:06:13 02/10/20 25 02/10/2025 CBC WITH DIFFE RENTI AL/PL ATELE T NRBC COMMISSIONS COORDINATOR Not Available [facility] ([facility]) [address] [facility], [place], [address], 02/10/2025 12:06:13 02/10/20 25 02/10/2025 CBC WITH DIFFE RENTI AL/PL ATELE T hematology comments: Note: CBC met refle x crite phani for revie w of perip heral smear by medic al labor atory profe ssion al. Autom ated resul ts were confi rmed by smear revie w. Not Available [facility] ([facility]) [address] [facility], [place], [address], 02/10/2025 12:06:13 02/10/20 25 02/10/2025 MIGUEL ANGEL+L IPASE amylase 58 U/L 31-110 normal Not Available [facility] ([facility]) [address] [place], [address], 02/10/2025 12:06:14 02/10/20 25 02/10/2025 MIGUEL ANGEL+L IPASE lipase 62 U/L 13-78 normal Not Available [facility] ([facility]) [address] [place], [address], 02/10/2025 12:06:14 02/10/2002/10/2025 TSH RFX ON ABNOR MAL TO FREE T4 TSH 2.300 uIU/m L 0.450- 4.500 normal Not Available [facility] ([facility]) [address] [place], [address], 02/10/2025 12:06:14 Result Notes None recorded. Problems Name Problem SNOMED Code Status Onset Date Resolution Date Notes Provider Name and Address Organization Details Recorded Time Sinusiti s 62971980 Completed 06/03/2014 See Lau MD [address] [facility] [address], [place], [address], [facility] 6 21:46:58 Increase d liver function 63817080 Active See Lau MD [address] [facility] [address] [address], [place], [address], [facility] 6 21:46:58 Disease of liver 401825343 Active See Lau MD [address] [address], [place], [address], [facility] 6 21:46:58 Steatoti c liver disease 142655319 Completed 11/25/2024 See Lau MD [address] [facility] [address] [address], [place], [address], [facility] 5 06:45:16 Body mass index 25-29 - overweig ht 539514609 Com[facility]11[facility] Sinusiti s 43193331 Completed 06/11/2015 See Lau MD [address] [facility] [address], [place], [address], [facility] 6 21:46:58 Proteinu phani 81582698 Completed 11/22/2018 See Lau MD [address] [facility] [address], [place], [address], [facility] 5 11:33:04 Adenomat ous polyp of colon 946548296 Completed 02/11/2019 See Lau MD [address] [facility] [address], [place], [address], [facility] 9 11:40:30 Proteinu phani 16732124 Completed 11/24/2024 See Lau MD [address] [facility] [address], [place], [address], [facility] 5 11:33:04 Proteinu phani 26823500 Active See Lau MD [address], [place], [address], [facility] 5 11:33:04 Pure hypercho lesterol emia 411761244 Completed 201210/14/2013 IMPRESSI ON: TOLERATI NG RX WELL. WILL REASSESS CONTROL. TITRATE DOSE TO GOAL LDL <130.; RECORDED 04/08/19 13 8:03AM BY SAVAGE ALEXIS/JAMES Lau MD [address] [facility] [address], [place], [address], [facility] 7 10:08:09 Essentia l hyperten sal 16537904 Completed 201210/14/2013 RECORDED 04/08/19 13 8:03AM BY SAVAGE ALEXIS/JAMES Lau MD [address] [facility] [address], [place], [address], [facility] 6 21:46:58 Heart disease 37897118 Completed 201202/11/2019 DATE: 10/11/19 13 See Lau MD [address] [facility] [address], [place], [address], [facility] 9 11:33:07 Disease of liver 816394127 Completed 201211/10/2013 IMPRESSI ON: ? IF SECONDAR Y TO MEDS VS ETOH USE VS OTHER LIVER DISEASE. IF ELEVATIO NS PERSISTA NT WILL CHECK U/S.; RECORDED 01/16/20 13 8:42AM BY KHANG CH MA, SAVAGE ON/JAMES Lau MD [address] [facility] [address], [place], [address], [facility] 6 21:46:58 Patient status finding [id number] Completed 201211/10/2013 RECORDED 01/16/20 13 8:42AM BY KHANG CH MA, SAVAGE ON/JAMES Lau MD [address] [facility] [address], [place], [address], [facility] 6 21:46:58 Disease of liver 897657527 Completed 201210/14/2013 IMPRESSI ON: ? IF SECONDAR Y TO MEDS VS ETOH USE VS OTHER LIVER DISEASE. IF ELEVATIO NS PERSISTA NT WILL CHECK U/S.; RECORDED 01/16/20 13 8:42AM BY KHANG CH MA, SAVAGE ON/JAMES Lau MD [address] [facility] [address], [place], [address], [facility] 6 21:46:58 Patient status finding [id number] Completed 201210/14/2013 RECORDED 01/16/20 13 8:42AM BY KHANG CH MA, SAVAGE ON/JAMES Lau MD [address] [facility] [address], [place], [address], [facility] 6 21:46:58 Adult health examinat ion Completed 201210/14/2013 IMPRESSI ON: IMMUNIZA TION STATUS UTD SHORT OF ZOSTAVAX WHICH PT WILL INQUIRE TO WHETHER INS COVERS. SCREEING IS UTD. REGULAR DENTAL CARE AND SEATBELT USE ADVISED. DISTRACT ED DRIVING DISCUSSE D.; RECORDED 01/16/20 13 8:42AM BY KHANG CH MA, SAVAGE GELLER/JAMES Lau MD [address] [facility] [address], [place], [address], [facility] 6 21:46:58 Immuniza tion refused Completed 201211/10/2013 RECORDED 01/22/20 13 10:15AM BY VINAY WOODRUFF MA, SAVAGE ON/ADDERICH Lau MD [address], [place], [address], [facility] 6 21:46:58 Immuniza tion refused Completed 201210/14/2013 RECORDED 01/22/20 13 10:15AM BY VINAY WOODRUFF MA, ANNOTATI ON/ADDERICH Lau MD [address], [place], [address], [facility] 6 21:46:58 Influenz a vaccine needed 49302889813 06 Completed 201211/10/2013 RECORDED 01/24/20 13 9:29AM BY VINAY WOODRUFF MA, OFFICE VISIT See Lau MD [address], [place], [address], [facility] 6 21:46:58 Influenz a vaccine needed 86445569286 06 Completed 201210/14/2013 RECORDED 01/24/20 13 9:29AM BY VINAY WOODRUFF MA, OFFICE VISIT See Lau MD [address], [place], [address], [facility] 6 21:46:58 Renewal of prescrip tion Completed 201311/10/2013 RECORDED 05/15/19 14 9:56AM BY VINAY WOODRUFF MA, ANNOTATI ON/JAMES Lau MD [address], [place], [address], [facility] 6 21:46:58 Atrial fibrilla tion 47179503 Completed 201310/02/2023 STORY: S/P ABLATION 12/2012 See Lau MD [address], [place], [address], [facility] 4 14:47:13 Gout 44480326 Active 2013 See Lau MD [address], [place], [address], [facility] 7 21:53:40 History of polyp of colon 366284867 Active 2013 See Lau MD [address], [place], [address], [facility] 6 21:46:58 Hydrocel e Active 2013 BILATERA L See Lau MD [address], [place], [address], [facility] 6 21:46:58 Pure hypercho lesterol emia 778259858 Active 2013 See Lau MD [address], [place], [address], [facility] 7 10:08:09 Essentia l hyperten sal 63552934 Active 2013 See Lau MD [address], [place], [address], [facility] 6 21:46:58 Renewal of prescrip tion Completed 201310/14/2013 RECORDED 05/15/19 14 9:56AM BY VINAY WOODRUFF MA, ANNOTATI ON/ADDEN DUM See Lau MD [address], [place], [address], [facility] 6 21:46:58 Obstruct ina sleep apnea syndrome 17229153 Active 2013 See Lau MD [address], [place], [address], [facility] 9 14:21:36 Overweig ht 831143903 Completed 201306/23/2016 IMPRESSI ON: POTENTIA L SKILLED NURSING HEALTH CONSEQUE LIZANDROES DIMPLE De La Cruz DIET AND EXERCISE HABITS ADVISED. ; RECORDED 05/15/19 14 12:14PM BY SEE Moss MD, OFFICE VISIT See Lau MD [address] [address], [place], [address], [facility] 7 10:06:59 Rosacea 314601027 Active 2013 See Lau MD [address] [address], [place], [address], [facility] 6 21:46:58 Psychose xual dysfunct ion 563819164 Active 2013 See Lau MD [address] [address], [place], [address], [facility] 6 21:46:58 Thromboc ytopenic disorder 637348807 Completed 201810/21/2018 See Lau MD [address] [facility] [address] [address], [place], [address], [facility] 4 21:05:41 Thromboc ytopenic disorder 348512247 Active 2018 See Lau MD [address] [address], [place], [address], [facility] 4 21:05:41 Macrocyt ic anemia 37133821 Active 2018 See Lau MD [address] [facility] [address], [place], [address], [facility] 9 13:10:31 Alcohol dependen ce 45274492 Active 2018 See Lau MD [address] [address], [place], [address], [facility] 9 14:26:24 Gastroes ophageal reflux disease 005095016 Active 2018 See Lau MD [address], [place], [address], [facility] 9 11:34:12 History of adenomat ous polyp of colon 152435007 Active 2018 See Lau MD [address], [place], [address], [facility] 9 11:40:26 Strain of hamstrin g muscle 83465180404 4 Completed 201905/14/2020 left See Lau MD [address], [place], [address], [facility] 1 10:43:38 Paroxysm al atrial fibrilla tion 521862002 Active 2019 See Lau MD [address], [place], [address], [facility] 0 20:49:17 Atrioven tricular block 210979587 Active 2020 See Lau MD [address], [place], [address], [facility] 1 11:19:25 Neuropat hy 805902320 Active 2020 See Lau MD [address], [place], [address], [facility] 1 15:34:58 Sacral radiculo nilesh 063995129 Active 2020 left S1 See Lau MD [address], [place], [address], [facility] 1 16:51:37 Herpes zoster 4124541 Active 2020 See Lau MD [address], [place], [address], [facility] 1 19:53:04 Prostate specific antigen above referenc e range 673441022 Completed 202102/04/2024 See Lau MD [address], [place], [address], [facility] 4 10:40:54 Macrocyt osis 645705063 Completed 202105/23/2022 See Lau MD [address], [place], [address], [facility] 3 14:57:40 Carcinom a of prostate 487038992 Completed 202212/24/2024 s/p XRT See Lau MD [address], [place], [address], [facility] 5 12:05:53 Congenit al hydrocel e 44152583 Active 2022 left See Lau MD [address], [place], [address], [facility] 3 08:48:02 Levoscol iosis 97589697756 4102 Active 2022 See Lau MD [address], [place], [address], [facility] 3 15:26:54 Arthriti s of facet joint of lumbar spine 75787103703 283786 Active 2022 See Lau MD [address], [place], [address], [facility] 3 15:27:11 Osteoart hritis of hip 684520696 Active 2022 See Lau MD [address], [place], [address], [facility] 3 07:33:53 Spinal stenosis of lumbar region 42642737 Active 2022 See Lau MD [address] [facility] [address], [place], [address], [facility] 3 07:42:40 Urgent desire to urinate 17478104 Active 2022 See Lau MD [address] [facility] [address], [place], [address], [facility] 3 21:59:04 First degree atrioven tricular block 171843854 Active 2023 See Lau MD [address] [facility] [address], [place], [address], [facility] 4 09:28:21 Moderate alcohol dependen ce 936015455 Active 2023 See Lau MD [address] [facility] [address], [place], [address], [facility] 4 15:04:56 Tubular adenomat ous polyp of colon 003191843 Active 2024 See Lau MD [address] [facility] [address], [place], [address], [facility] 5 10:45:32 Early cirrhosi s 538679359 Active 2024 See Lau MD [address] [address], [place], [address], [facility] 5 07:10:56 History of malignan t neoplasm of prostate 520362197 Active 2024 See Lau MD [address] [facility] [address], [place], [address], [facility] 5 12:06:04 Hiccough s 82082737 Active 2024 SABRINA MORALES IN, TUBE MAN-BC [address], [place], [address], [facility] 14:50:29 Problem Notes None recorded. Procedures Surgical History Date Name Laterality Status Provider Name and Address Organization Details Recorded Time 02/19/20 24 Colonoscopy completed See Lau MD [address] [address], [place], [address], [facility] 04/09/2024 10:45:11 10/02/19 24 Advanced Care Planning completed See Lau MD [address] [address], [place], [address], [facility] 10/02/2023 15:16:24 04/27/19 23 transrectal biopsy of prostate completed See Lau MD [address], [address], [facility] 05/10/2022 08:47:47 12/03/19 22 Suture/Staple removal completed SABRINA BALTAZAR MD [address], [address], [facility] 12/02/2021 13:54:45 05/14/19 21 Six-Item Cognitive Test completed Mary Pierre MA [facility] 05/14/2020 10:14:14 07/25/19 19 Colonoscopy completed See Lau MD [address], [address], [facility] 02/11/2019 11:38:51 10/01/19 13 Endovas non-cardiac abl cath completed See Lau MD [address] [address], [place], [address], [facility] 12/08/2013 06:12:19 05/03/19 13 catheter ablation of arrhythmogenic focus completed See Lau MD [address], [address], [facility] 02/11/2019 11:41:00 Imaging Results None recorded. Procedure Notes None recorded. Medical Equipment None Reported. Allergies No known drug allergies Medications Name Sig Start Date Stop Date Status Note LastModified by Organization Details LastModified Time compound drug active Not Available Not Available Not Available amoxicill in 500 mg capsule 07/25 completed Not Available Not Available Not Available doxycycli ne hyclate 100 mg capsule 05/17 completed Not Available Not Available Not Available flecainid e 150 mg tablet Take 1 tablet every day by oral route for 30 days. active Not Available Not Available No t Available atorvasta tin 10 mg tablet TAKE 1 TABLET DAILY 02/09 completed Not Available Not Available Not Available lisinopri l 20 mg-hydroc hlorothia zide 12.5 mg tablet TAKE ONE TABLET BY MOUTH EVERY DAY 10/21 completed Not Available Not Available Not Available aspirin 325 mg tablet DAILY 05/08 completed RECORDED 06/19/19 13 1:37PM BY SEE Moss MD, MEDICATI ON AUTO-TL CTIVATIO N; Not Available Not Available Not Available tizanidin e 4 mg tablet Take 1 tablet every 6-8 hours by oral route as directed for 3 days. 10/19 completed Not Available Not Available Not Available metoprolo l succinate ER 50 mg tablet,ex tended release 24 hr Take 1 tablet every day by oral route. active Not Available Not Available No t Available valacyclo vir 1 gram tablet Take by oral route for 7 days. 05/17 completed Not Available Not Available Not Available naltrexon e 50 mg tablet TAKE ONE TABLET BY MOUTH EVERY DAY DIRECTED 10/01 completed Not Available Not Available Not Available prednison e 20 mg tablet Take 2 tablets every day by oral route for 5 days. 10/19 completed Not Available Not Available Not Available fluoroura cil 5 % topical cream 05/14 completed Not Available Not Available Not Available thiamine HCl (vitamin B1) 100 mg tablet Take 1 tablet every day by oral route for 30 days. 2024 active Not Available Not Available Not Avai lable warfarin 2.5 mg tablet active Not Available Not Available Not Available amlodipin e 2.5 mg tablet TAKE 1 TABLET BY MOUTH ONCE DAILY 2024 active Not Available Not Available Not Avai lable allopurin ol 100 mg tablet Take 2 tablets every day by oral route for 30 days. 07/24 completed Not Available Not Available Not Available ciproflox acin 500 mg tablet 07/24 completed Not Available Not Available Not Available lovastati n 10 mg tablet TAKE ONE TABLET BY MOUTH EVERY DAY 12/16 completed Not Available Not Available Not Available tetracycl ine 250 mg capsule 1 tab daily orally 09/27 completed Not Available Not Available Not Available lisinopri l 10 mg tablet TAKE ONE TABLET BY MOUTH EVERY DAY 12/02 completed BP low with map of 68 Not Available Not Available Not Available metronida zole 0.75 % topical cream active Not Available Not Available Not Available indometha mckay 25 mg capsule Take 1 capsule every day by oral route as needed for 30 days. active prn Not Available Not Available No t Available gabapenti n 300 mg capsule TAKE ONE CAPSULE BY MOUTH THREE TIMES A DAY 2024 active NEEDED Not Available Not Available Not Available omeprazol e 20 mg capsule,d elayed release TAKE ONE CAPSULE BY MOUTH EVERY DAY 2024 active Not Available Not Available Not Avai lable folic acid 1 mg tablet Take 1 tablet every day by oral route. 11/22 completed Not Available Not Available Not Available allopurin ol 300 mg tablet TAKE ONE TABLET BY MOUTH EVERY DAY active Not Available Not Available No t Available lisinopri l 5 mg tablet TAKE ONE TABLET BY MOUTH EVERY DAY active Not Available Not Available No t Available fluticaso ne propionat e 50 mcg/actua tion nasal spray,juan pension Schroeder 2 sprays every day by intranas al route as directed . 10/21 completed Not Available Not Available Not Available metronida zole 0.75 % topical gel APPLY A THIN LAYER TO THE AFFECTED AREA(S) BY TOPICAL ROUTE 2 TIMES PER DAY IN THE MORNING AND EVENING active Not Available Not Available No t Available loratadin e 10 mg tablet Take 1 tablet every day by oral route for 30 days. 2014 active Not Available Not Available Not Avai lable amoxicill in 875 mg-potass ium clavulana te 125 mg tablet Take 1 tablet every 12 hours by oral route for 10 days. 07/25 completed Not Available Not Available Not Available Readi-Cat 2 2.1 % (w/v), 2.0 % (w/w) oral suspensio n Take 450 mL twice a day by oral route as directed for 1 day. 05/17 completed Not Available Not Available Not Available flecainid e TWO TIMES DAILY 05/08 completed RECORDED 06/19/19 13 1:37PM BY SEE Moss MD, MEDICATI ON AUTO-TL CTIVATIO N; Not Available Not Available Not Available peg 3350 240 gram-elec trolytes 22.72 gram-6.72 g-5.84 g powdr for soln 10/21 completed Not Available Not Available Not Available Havrix (PF) 1,440 URI unit/mL intramusc ular syringe active Not Available Not Available Not Available Colcrys 0.6 mg tablet active Not Available Not Available Not Available Eliquis 5 mg tablet TAKE ONE TABLET BY MOUTH TWICE A DAY 2024 active Not Available Not Available Not Avai lable Readi-Cat 2 2 % (w/v) oral suspensio n 05/17 completed Not Available Not Available Not Available Fluad Quad (65yr up)(PF) 60 mcg (15 mcg x 4)/0.5mL IM syringe 05/14 completed Not Available Not Available Not Available Vitals Date Recorded Body height Body mass index (BMI) Body weight Heart rate Oxygen saturation Body temperature Systolic And Diastolic Provider Name and Address Organization Details Last Updated DateTime 5 177.17 cm 24.4 kg/m2 08577.1 1 g 94 /min 96 % 99.3 [degF] 137/84 mm[Hg] Rose Marie Skaggs MA [facility] 5 13:58:43 Social History Question Answer Notes LastModified by Organizat ion Details LastModified Time Tobacco Smoking Status Never Smoker Not Available [facility] 02/03/2020 03:36:40 Do You Have An Advance Directive? Yes Information not available 02/08/2023 Is Blood Transfusion Acceptable In An Emergency? Yes [id number] Information not available 02/03/2020 What Is Your Level Of Caffeine Consumption? None Information not available 10/02/2023 How Much Tobacco Do You Chew? None [id number] Information not available 02/03/2020 What Type Of Diet Are You Following? REGULAR [id number] Information not available 02/03/2020 Which Illicit Or Recreational Drugs Have You Used? None [id number] Information not available 02/03/2020 Education 4 Year College Information not available 06/03/2014 Live Alone Or With Others? With Others Information not available 06/23/2016 Do You Take Precautions To Prevent Distracted Driving? Yes Information not available 06/11/2015 How Often Do You Need To Have Someone Help You When You Read Instructions, Pamphlets, Or Other Written Material From Your Doctor Or Pharmacy? Never Information not available 06/11/2015 Have You Served In The ? No Information not available 06/23/2016 *AWV ONLY* Are You Presently Prescribed Opioid Medication By PCP Or Specialist? If YES -Provider Assess The Benefit For Other, Non-opioid Pain Therapies Instead, Even If The Patient Does Not Have OUD But Is Possibly At Risk. No Information not available 05/17/2021 What Was The Date Of Your Most Recent Tobacco Screening? 11/24/2024 Information not available 11/24/2024 How Many Children Do You Have? 2 Son (Getachew) And Dtr (Frederick Kaye). 3 Grandsons Information not available 11/24/2024 Seat Belts Used Routinely Yes Information not available 06/03/2014 Are You Sexually Active? Yes (Annelise) Information not available 02/08/2023 Smoke Alarm In Home Yes Information not available 06/11/2015 At What Age Did You Start Smoking Tobacco? 1 [id number] Information not available 02/03/2020 Are You Passively Exposed To Smoke? No Information not available 06/03/2014 How Much Tobacco Do You Smoke? No [id number] Information not available 02/03/2020 Do You Use Sunscreen Routinely? Yes [id number] Information not available 02/03/2020 How Many Years Have You Smoked Tobacco? 0 [id number] Information not available 02/03/2020 Sex: Unknown Functional Status Question Answer Note LastModified by Organizat ion Details LastModified Time Do you use any illicit or recreational drugs? No Information not available 05/17/2021 Do you or have you ever used any other forms of tobacco or nicotine? No Information not available 05/17/2021 What is your level of alcohol consumption? Moderate [id number] Information not available 02/03/2020 Do you or have you ever used smokeless tobacco? 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 YESWOREST Information not available 05/17/2021 Are you able to care for yourself independently? Yes [id number] Information not available 02/03/2020 Do you or have you ever used e-cigarettes or vape? Never used electronic cigarettes [id number] Information not available 02/03/2020 What is your exercise level? Moderate referee HS athletics; soccer 3+ x week, basketball 3+ x week Information not available 02/08/2023 Mental Status None recorded. Family History Relationship Description Onset Age of this Age Resolved Age Notes LastModified by Organization Details LastModified Time Mother Hypertensive disorder [email or web address] Not available 06/10 15:16:33 Mother Dementia [email or web address] Not availab le 06/11/2015 15:16:33 Mother Disorder of thyroid gland awychowski Not available 06/10 15:16:33 Father Intracranial aneurysm awychowski Not available 06/10 15:16:33 Sister Well adult awychowski Not avail able 06/11/2015 15:16:33 Medical History Condition Response Coronary Artery Disease N Other N Gout N Kidney Stones N Blood Diseases N Hyperthyroidism N Breast Cancer N mrsa exposure N COPD N Depression N Lung Disease N Hypothyroidism N Defects or Inherited Disease N Developmental or Behavioral Disorders N Breast Problem N Anesthesia Complications N Headaches/Migraines N Varicose Veins N Anxiety Disorder N Muscle, Joint, or Bone Problems N Obesity N Vision or Eye Problems N Arthritis Y Head Injury/Concussion N Polyps N Infertility N Mental Disorder N Congenital Anomalies N Acid Reflux (GERD) N Cancer N Stroke N ADHD N Endometriosis N High Cholesterol Y Liver Disease Y Fibromyalgia N Headaches N Kidney Disease N Heart Problems N Ear or Hearing Problems N Hospitalizations N Thyroid Problems N GI Problems N Developmental Delay N Acne N Skin Problems Y Eating Disorder N Anemia N Constipation N Bladder Problems N Mental Illness N Ovarian Cancer N Diabetes N Bedwetting N Blood Transfusions N Seizures/Epilepsy N Heart Problems/Murmur N Tuberculosis N AIDS/HIV N Congestive Heart Failure (CHF) N Eczema N Diverticulitis N Abuse/Domestic Violence N Allergies N Asthma N Reflux/GERD N Hepatitis N Heart Disease N Pulmonary Embolism N Hypertension Y Osteoporosis N Chicken Pox N Autism Spectrum Disorder (ASD) N Immunizations Vaccine Type Date Status Note Provider Nam e and Address Organization Details Recorded Time Influenza, split virus, quadrivalent, preservative 0 completed Not Available [facility] 12/08/2021 13:29:19 Hep B, adult 5 completed Not Available [facility] 04/19/2019 02:21:35 Influenza, adjuvanted, quadrivalent, PF 0 completed STEPHEN Corrales [facility] 05/17/2021 13:37:51 COVID-19, mRNA, LNP-S, PF, 30 mcg/0.3 mL dose 1 completed STEPHEN Gonzales [facility] 07/24/2022 10:49:03 COVID-19, mRNA, LNP-S, PF, 30 mcg/0.3 mL dose 1 completed STEPHEN Gonzales [facility] 07/24/2022 10:49:03 Hep B, adult 5 completed Not Available [facility] 04/19/[facility] 02:21:35 Hep A, adult 5 completed Not Available [facility] 04/19/2019 02:21:34 zoster recombinant 0 completed Not Available [facility] 02/08/2023 10:10:44 Influenza, high-dose, quadrivalent, PF 1 completed STEPHEN Gonzales [facility] 07/24/2022 10:49:03 COVID-19, mRNA, LNP-S, PF, 100 mcg/0.5mL dose or 50 mcg/0.25mL dose 1 completed STEPHEN Gonzales, [facility] 07/24/2022 10:49:03 Hep A, adult 6 completed Not Available [facility] 04/19/2019 02:21:34 Hep B, adult 6 completed Not Available [facility] 04/19/2019 02:21:35 Influenza, split virus, quadrivalent, PF 6 completed Not Available [facility] 04/19/2019 02:22:04 Influenza, split virus, quadrivalent, PF 7 completed Not Available [facility] 04/19/2019 02:22:13 Influenza, split virus, quadrivalent, PF 9 completed Not Available [facility] 04/19/2019 02:22:16 Influenza, split virus, trivalent, preservative 2 completed Not Available [facility] 05/23/2022 14:27:26 Tdap 9 completed Not Available [facility] 05/23/2022 14:27:26 influenza, seasonal, intradermal, preservative free 3 completed Not Available [facility] 05/23/2022 14:27:26 Tdap 9 completed Not Available [facility] 04/19/2019 02:21:51 Influenza, split virus, quadrivalent, PF 9 completed Not Available [facility] 04/19/2019 02:22:10 Influenza, split virus, trivalent, PF 4 completed Not Available [facility] 04/19/2019 02:21:57 pneumococcal polysaccharide PPV23 1 completed STEPHEN Barillas, [facility] 05/14/2020 11:51:06 Influenza, high-dose, quadrivalent, PF 2 completed STEPHEN Corrales, [facility] 12/09/2021 14:33:44 Influenza, high-dose, quadrivalent, PF 3 completed See Lau MD [address], [address] 02/08/2023 11:12:19 Influenza, high-dose, trivalent, PF 4 completed See Lau MD [address] [facility] [address], [address], [facility] 02/27/2024 20:38:20 Past Encounters Encounter ID Performer Location Encounter Start Date Encounter Closed Date Diagnosis/Indication Diagnosis SNOMED-CT Code Diagnosis ICD10 Code Diagnosis IMO Codes Diagnosis Note [id number] See Lau MD Main Office [address] [facility] [address] [place] [address] 02/09/2025 13:51:37 02/09/2025 14:35:07 Hiccoughs 87691014 R06.6 [id number] - Patient presenting with 4 days of hiccups with unknown etiology. Hiccups most likely attributed to GERD, patient's alcohol use, cirrhosis, or possibly GI conditions for which he has increased risk due to AUD and cirrhosis. Based on H+P, cardiac, pulmonary, neurologic al, and thyroid etiologies less likely. It is also reassuring that hiccups seem to be improving at this time.- For initial work up, ordering labs to evaluate metabolic dysfunctio n and electrolyt e abnormalit ies, liver dysfunctio n, pancreatit is, thyroid dysfunctio n, infection, anemia- Further neurologic , pulmonary, and cardiac work up excluded at this time with low suspicion for cardiac etiology based on H+P. Could explore further should hiccups persist without clear etiology and/or should he present with associated symptoms concerning for these etiologies . Patient also establishe d with GI in the event that an EGD should be considered for evaluation .- Patient may use gabapentin for symptom management if hiccups are disrupting sleep, eating, and other ADLs. Discussed risks of taking gabapentin concurrent ly with alcohol use.- RTC if symptoms persist or worsen. Further evaluation and interventi on to be determined based on results. If symptoms persist in the absence of conclusive lab results, further evaluation may be indicated as discussed above. In the meantime, reviewed signs and symptoms that should prompt seeking emergency medical care. Patient demonstrat es understand ing of plan of care. Alcohol dependence 02901 003 F10.288 - Patient reports no alcohol use for >24 hours, generally consumes 7-8 drinks per day- Reviewed signs and symptoms of alcohol withdrawal and risks associated with discontinu ing use abruptly without medical supervisio n. Advised on when to seek emergency medical care.- Advised to RTC to discuss alcohol use disorder and resources/ treatment options should he want to pursue quitting. Patient states he wants to discuss this further with his PCP at his next follow up in March. 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 Will generate new referral to consider EGD. Health Concerns Section Related Observation LastModified by Organization Detai ls LastModified Time None Recorded Concern Status LastModified by Organization Details LastModified Time None Recorded Payers Encounter Date Sequence Insurance Name Policy Number Policy Torres Covered Member ID Torres Member ID Guarantor Name 02/09/2025 1 MEDICARE [place]: [employer] Silver Rory Waters Jr [id number] Silver Waters 02/09/2025 2 [facility] [address] - PLAN 1 (MEDICARE SUPPLEMENT) [id number] Silver Waters [id number] Silver Waters Notes Date Note Type Note Provider Name and Address Organization Details Recorded Time 02/09/2025 text/html ROS as noted in the HPI Silver is a 69 year old M with PMH of AUD, HTN, first degree AV block, Afib, hypercholesterolemi a, GERD, cirrhosis, congenital hydrocele, prostate CA, OA, gout, lumbar stenosis with radiculopathy, ELEAZAR, rosacea. He presents today with hiccups that started on 02/05 (have been persisting for 4 days) Duration of current and previous episodes, including alleviating treatments of previous episodes:- Started last (4 days), seems to have started to improve today- Hiccups occurring constantly- Prior episodes have typically lasted between 20-60 minutes- Tried holding breath, focusing on something else, drinking water. No relief with interventions. Possible precipitants:- Alcohol use: 7-8 alcoholic drinks per day but states he has not had a drink since yesterday morning. Denies symptoms of withdrawal at this time.- GERD - takes omeprazole- Cirrhosis Impact on activities of daily living (eg, eating, drinking, sleeping).- Sleeping is disrupted- Eating less; feels less appetite with hiccups- Drinking less alcohol Complete list of medications. If the patient is taking a potentially causative medication, whether it is possible to discontinue it.- metoprolol daily- prilosec daily- eliquis daily- flecainide- amlodipine- allopurinol- thiamine- indomethacine- gabapentin Associated symptoms:- Some burping (not new), no reflux. No abdominal pain or N/V to speak of. Had diarrhea on Sunday.- No increased fatigue, AMS, weakness, ataxia, changes in vision/hearing/spee ch- no shortness of breath, coughing, wheezing, chest pain, jaw pain, arm pain Persistence of symptoms during sleep, or if they stop during sleep and recur upon waking up.- Hiccups at night while sleeping per , and wakes up with hiccups Recent acute illnesses, including thoracic or abdominal surgery or general anesthesia.- No recent infections or surgeries See Lau MD [address] [address], [place], [address], [facility] 02/12/2025 07:21:12
--- OUTSIDE RECORDS SUMMARY | 2025-03-06 07:06 | XMS_ITS | Data Portability ---
Author Organization [facility], Main Office Address [address] [place] [id number] Care Team Providers Care Cardiovascular Lab Director Name Role Phone SEE LAU Primary Care Provider MORENO RAMIREZ Lab Animal Technologist EB JORDAN Salesperson Hearing Aids OREL GUERRERO Urologist CALLY STOUT Radiation Oncologist CHRISTOPHER CARVER Financial Operations Consultant JOHN AUSTIN JR Make Up Arranger [phone] Assessment No assessment recorded. Plan of Treatment Reminders Order Date Submit Date Provider Last Modified By Organization Details Last Modified Time Details Appointments FOLLOW UP 2024 10:00A M See Lau MD Not available Not available Not available Lab CBC w/ auto diff 2024 025 DAVID [facility] (Centralized Electronic Ordering - All Locations), Patient Can Go To The Location Of Their Choice, [id number] 02/10/2025 12:06:13 amylas e + lipase , serum 2024 025 DAVID [facility] (Centralized Electronic Ordering - All Locations), Patient Can Go To The Location Of Their Choice, [id number] 02/10/2025 12:06:14 CMP, serum or plasma 2024 025 DAVID [facility] (Centralized Electronic Ordering - All Locations), Patient Can Go To The Location Of Their Choice, [id number] 02/10/2025 12:06:11 TSH, ultra- sensit ina, serum 2024 DAVID [facility] (Centralized Electronic Ordering - All Locations), Patient Can Go To The Location Of Their Choice, 02/10/2025 12:06:14 uric acid, serum or plasma 2024 DAVID [facility] (Centralized Electronic Ordering - All Locations), Patient Can Go To The Location Of Their Choice, 11/24/2024 11:55:33 lipid panel, serum 2024 DAVID [facility] (Centralized Electronic Ordering - All Locations), Patient Can Go To The Location Of Their Choice, 11/24/2024 11:55:31 CMP, serum or plasma 2024 DAVID [facility] (Centralized Electronic Ordering - All Locations), Patient Can Go To The Location Of Their Choice, 11/24/2024 11:55:33 urinal ysis comple te, reflex cultur e 2024 DAVID [facility] (Centralized Electronic Ordering - All Locations), Patient Can Go To The Location Of Their Choice, 11/24/2024 11:55:32 CBC w/ auto diff 2024 DAVID [facility] (Centralized Electronic Ordering - All Locations), Patient Can Go To The Location Of Their Choice, 11/24/2024 11:55:32 microa lbumin /creat inine, mass ratio, urine 2024 DAVID [facility] (Centralized Electronic Ordering - All Locations), Patient Can Go To The Location Of Their Choice, 11/22/2024 16:05:48 CMP, serum or plasma 2024 025 DAVID [facility] (Centralized Electronic Ordering - All Locations), Patient Can Go To The Location Of Their Choice, 11/22/2024 16:05:46 urinal ysis, comple te 2024 DAVID [facility] ([facility]ized Electronic Ordering - All Locations), Patient Can Go To The Location Of Their Choice, 11/22/2024 16:05:47 CBC w/ auto diff 2024 025 [email or web address] [facility] ([facility]ized [facility] Ordering - All Locations), Patient Can Go To The Location Of Their Choice, 11/05/2024 12:45:41 uric acid, serum or plasma 2023 024 DAVID [facility] ([facility]ized Electronic Ordering - All Locations), Patient Can Go To The Location Of Their Choice, 04/02/2024 08:07:46 lipid panel, serum 2023 024 DAVID [facility] (Centralized Electronic Ordering - All Locations), Patient Can Go To The Location Of Their Choice, 04/02/2024 08:07:46 CMP, serum or plasma 2023 024 DAVID [facility] (Centralized Electronic Ordering - All Locations), Patient Can Go To The Location Of Their Choice, 04/02/2024 08:07:45 CBC w/ auto diff 2023 024 DAVID [facility] (Centralized Electronic Ordering - All Locations), Patient Can Go To The Location Of Their Choice, 04/02/2024 08:07:44 urinal ysis comple te, reflex cultur e 2023 024 DAVID [facility] (Centralized Electronic Ordering - All Locations), Patient Can Go To The Location Of Their Choice, [id number] 10/03/2023 10:07:25 Referral gastro entero logist referr al - for evalua tion and guidan ce regard ing cirrho sis/GE RD, consid eratio n of EGD to rule out varice s. 2024 025 RANDY Austin Jr, MD, [address] [place] [address] [place], [address], 02/10/2025 15:04:04 gastro entero logist referr al - for cirrho sis eval and mgmt guidan ce, and colon polyp recomm ended follow up. 2024 025 [email or web address] John Austin Jr, MD, [address] [facility] [place], [address], 11/24/2024 12:02:04 physic al therap ist referr al 2023 024 [email or web address] [facility], [address], [place], [address], 10/30/2023 10:58:19 nutrit ionist /dieti jonathan referr al 2023 024 dominique Not available 10/02/2023 15:15:44 gastro entero logist referr al - Needs colon cancer screen ing 2023 024 DAVID Austin Jr, MD, [address] [place] [address] [place], [address], 02/08/2024 15:35:47 Procedures colono scopy screen ing (PROC) 2023 024 DAVID In-Office Order, Internal Use Only DO Not Attach Compendium DO Not Attach Compendium, Do Not Delete/merge, [id number] 02/20/2024 07:43:04 Surgeries None record ed. Imaging US, liver - rule out cirrho tic change s 2024 025 [facility] (Ultrasound), [address] [place] [address], [id number], 05/01/2024 13:27:35 electr ocardi ogram 2023 024 dominique In-Office Order, Internal Use Only DO Not Attach Compendium DO Not Attach Compendium, Do Not Delete/merge, [id number] 02/04/2024 13:28:03 Medication Orders thiami ne HCl (vitam in B1) 100 mg tablet 2024 025 DAVID [facility], [address] [place], [address], 11/24/2024 11:55:18 metron idazol e 0.75 % topica l gel 2023 024 dominique [facility], [address] [place], [address], 10/02/2023 15:15:44 Patient TargetsNo targets recorded. Patient Instructions Encounter Date Encounter Id Patient Instructions Last Modified By Organization Details Last Modified Time 10/02/2023 [id number] advance care planning: care instructions [email or web address] Not available 10/02/2023 15:16:36 high cholesterol : care instructions awychowski Not available 10/02/2023 15:16:13 rosacea: care instructions awychowski Not available 10/02/2023 15:15:44 thrombocytopenia : care instructions awychowski Not available 10/02/2023 15:15:44 alcohol detoxification and withdrawal: care instructions awychowski Not available 10/02/2023 15:15:43 substance use disorder: care instructions awychowski Not available 10/02/2023 15:15:43 gastroesophageal reflux disease (GERD): care instructions awychowski Not available 10/02/2023 15:15:43 preventing falls : care instructions awychowski Not available 10/02/2023 15:15:43 well visit, over 65: care instructions awychowski Not available 10/02/2023 15:15:43 medicare prevent ina services guide (male 74 rs and under) awychowski Not available 10/02/2023 15:15:43 When You Want to Lose Weight: Care Instructions awychowski Not available 10/02/2023 15:15:44 Nutrition Referr al and Weight Management Follow-up Information awychowski Not available 10/02/2023 15:15:44 learning about c olon cancer awychowski Not available 10/02/2023 15:15:43 02/04/2024 [id number] high cholesterol : care instructions awychowski Not available 02/04/2024 10:45:53 high blood press ure: care instructions awychowski Not available 02/04/2024 10:45:53 learning about h igh blood pressure awychowski Not available 02/04/2024 10:45:53 11/24/2024 [id number] alcohol detoxification and withdrawal: care instructions awychowski Not available 11/24/2024 11:55:16 substance use disorder: care instructions awychowski Not available 11/24/2024 11:55:16 high cholesterol : care instructions awychowski Not available 11/24/2024 11:55:15 gastroesophageal reflux disease (GERD): care instructions awychowski Not available 11/24/2024 11:55:16 preventing falls : care instructions awychowski Not available 11/24/2024 11:55:16 medicare prevent ina services guide (male 74 rs and under) awychowski Not available 11/24/2024 11:55:16 thrombocytopenia : care instructions awychowski Not available 11/24/2024 11:55:15 learning about c olon cancer awychowski Not available 11/24/2024 11:55:15 02/09/2025 [id number] alcohol detoxification and withdrawal: care instructions Not available 02/09/2025 14:50:29 substance use disorder: care instructions Not available 02/09/2025 14:50:29 hiccups: care instructions Not available 02/09/2025 14:32:32 I have reviewed the note and agree with the assessment and plan of care. [email or web address] Not available 02/10/2025 06:36:54 Reason for Referral Make Up Arranger Referral for Screening for malignant neoplasm of colon Needs colon cancer screening Referring Physician: Family Enrico Fallon, Encounter Date: 10/02/2023 Parking Cashier/dietitian Refer ral for Body mass index 25-29 - overweight Referring Physician: Family Enrico Fallon, Encounter Date: 10/02/2023 Physical Therapist Referral for At increased risk for falls Referring Physician: Family Enrico Fallon, Encounter Date: 10/02/2023 Make Up Arranger Referral for Early cirrhosis for cirrhosis eval and mgmt guidance, and colon polyp recommended follow up. Referring Physician: Family Enrico Fallon, Encounter Date: 11/24/2024 Make Up Arranger Referral for Early cirrhosis for evaluation and guidance regarding cirrhosis/GERD, consideration of EGD to rule out varices. Referring Physician: Family Enrico Serna, Encounter Date: 02/09/2025 Results Created Date Observation Date Name Description Value Unit Range Abnormal Flag Note LastModifiedBy Organization Detail LastModifiedTime 10/02/19 24 10/03/2023 UA/M W/RFL X CULTU RE ROUTI NE specific gravity 1.029 1.005- 1.030 Not Available [facility] ([facility]) [address] [facility], [place], [address], 10/03/2023 10:07:25 10/02/19 24 10/03/2023 UA/M W/RFL X MIRYAM REMAXIMILIAN NE pH 5.5 5.0-7. 5 Not Available [facility] ([facility]) [address] [facility], [place], [address], 10/03/2023 10:07:25 10/02/19 24 10/03/2023 UA/M W/RFL X CULTLupillo REMAXIMILIAN NE urine-color YELLOW yellow Not Available [facility] ([facility]) [address] [facility], [place], [address], 10/03/2023 10:07:25 10/02/19 24 10/03/2023 UA/M W/RFL X CULTLupillo RE ROUTIsa NE appearance CLOUDY clear abnormal Not Available [facility] ([facility]) [address] [facility], [place], [address], 10/03/2023 10:07:25 10/02/19 24 10/03/2023 UA/M W/RFL X MIRYAM REMAXIMILIAN NE WBC esterase NEGATI VE negati ve Not Available [facility] ([facility]) [address] [facility], [place], [address], 10/03/2023 10:07:25 10/02/19 24 10/03/2023 UA/M W/RFL X CULTLupillo REMAXIMILIAN NE protein 1+ negati ve/tra ce abnormal Not Available [facility] ([facility]) [address] [facility], [place], [address], 10/03/2023 10:07:25 10/02/19 24 10/03/2023 UA/M W/RFL X CULTU RE, ROUTI NE glucose NEGATI VE negati ve Not Available [facility] ([facility]) [address] [place], [address], 10/03/2023 10:07:25 10/02/19 24 10/03/2023 UA/M W/RFL X CULTU RE, ROUTI NE ketones TRACE negati ve abnormal Not Available [facility] ([facility]) [address] [place], [address], 10/03/2023 10:07:25 10/02/19 24 10/03/2023 UA/M W/RFL X CULTU RE, ROUTI NE occult blood NEGATI VE negati ve Not Available [facility] ([facility]) [address] [place], [address], 10/03/2023 10:07:25 10/02/19 24 10/03/2023 UA/M W/RFL X CULTU RE, ROUTI NE bilirubin NEGATI VE negati ve Not Available [facility] ([facility]) [address] [place], [address], 10/03/2023 10:07:25 10/02/19 24 10/03/2023 UA/M W/RFL X CULTU RE, ROUTI NE urobilinogen ,semi-qn 1.0 mg/dL 0.2-1. 0 Not Available [facility] ([facility]) [address] [place], [address], 10/03/2023 10:07:25 10/02/19 24 10/03/2023 UA/M W/RFL X CULTU RE, ROUTI NE nitrite, urine NEGATI VE negati ve Not Available [facility] ([facility]) [address] [place], [address], 10/03/2023 10:07:25 10/02/19 24 10/03/2023 UA/M W/RFL X CULTU RE, ROUTI NE microscopic examination SEE BELOW: Micro scopi c was indic ated and was perfo rmed. Not Available [facility] ([facility]) [address] [facility], [place], [address], 10/03/2023 10:07:25 10/02/19 24 10/03/2023 UA/M W/RFL X CULTU RE, ROUTI NE WBC NONE SEEN /hpf 0 - 5 Not Available [facility] ([facility]) [address] [facility], [place], [address], 10/03/2023 10:07:25 10/02/19 24 10/03/2023 UA/M W/RFL X CULTU RE, ROUTI NE RBC NONE SEEN /hpf 0 - 2 Not Available [facility] ([facility]) [address] [facility], [place], [address], 10/03/2023 10:07:25 10/02/19 24 10/03/2023 UA/M W/RFL X CULTU RE, ROUTI NE epithelial cells (non renal) 0-10 /hpf 0 - 10 Not Available [facility] ([facility]) [address] [facility], [place], [address], 10/03/2023 10:07:25 10/02/19 24 10/03/2023 UA/M W/RFL X CULTU RE, ROUTI NE epithelial cells (renal) OIL PIT ATTENDANT Not Available [facility] ([facility]) [address] [facility], [place], [address], 10/03/2023 10:07:25 10/02/19 24 10/03/2023 UA/M W/RFL X CULTU RE, ROUTI NE casts NONE SEEN /lpf none seen Not Available [facility] ([facility]) [address] [facility], [place], [address], 10/03/2023 10:07:25 10/02/19 24 10/03/2023 UA/M W/RFL X CULTU RE, ROUTI NE cast type OIL PIT ATTENDANT Not Available [facility] ([facility]) [address] [facility], [place], [address], 10/03/2023 10:07:25 10/02/19 24 10/03/2023 UA/M W/RFL X CULTU RE, ROUTI NE crystals PRESEN T n/a abnormal Not Available [facility] ([facility]) [address] [facility], [place], [address], 10/03/2023 10:07:25 10/02/19 24 10/03/2023 UA/M W/RFL X CULTU RE, ROUTI NE crystal type CALCIU M OXALAT E n/a Not Available [facility] ([facility]) [address] [facility], [place], [address], 10/03/2023 10:07:25 10/02/19 24 10/03/2023 UA/M W/RFL X CULTU RE, ROUTI NE mucus threads OIL PIT ATTENDANT Not Available [facility] ([facility]) [address] [facility], [place], [address], 10/03/2023 10:07:25 10/02/19 24 10/03/2023 UA/M W/RFL X CULTU RE, ROUTI NE bacteria NONE SEEN none seen/f ew Not Available [facility] ([facility]) [address] [facility], [place], [address], 10/03/2023 10:07:25 10/02/19 24 10/03/2023 UA/M W/RFL X CULTU RE, ROUTI NE yeast OIL PIT ATTENDANT Not Available [facility] ([facility]) [address] [place], [address], 10/03/2023 10:07:25 10/02/19 24 10/03/2023 UA/M W/RFL X CULTU RE, ROUTI NE trichomonas OIL PIT ATTENDANT Not Available [facility] ([facility]) [address] [place], [address], 10/03/2023 10:07:25 10/02/19 24 10/03/2023 UA/M W/RFL X CULTU RE, ROUTI NE comment OIL PIT ATTENDANT Not Available [facility] ([facility]) [address] [facility], [place], [address], 10/03/2023 10:07:25 10/02/19 24 10/03/2023 UA/M W/RFL X CULTU RE, ROUTI NE microscopic examination OIL PIT ATTENDANT Not Available [facility]) [address] [facility], [place], [address], 10/03/2023 10:07:25 10/02/19 24 10/03/2023 UA/M W/RFL X CULTU RE, ROUTIsa NE urinalysis reflex COMMEN T This speci men will not refle x to a Urine Cultu re. Not Available [facility] ([facility]) [address] [facility], [place], [address], 10/03/2023 10:07:25 04/01/20 24 04/02/2024 CBC WITH DIFFE RENTI AL/PL ATELE T WBC 5.1 x10e3 /uL 3.4-10 .8 normal Not Available [facility] ([facility]) [address] [place], [address], 04/02/2024 08:07:43 04/01/20 24 04/02/2024 CBC WITH DIFFE RENTI AL/PL ATELE T RBC 4.20 x10e6 /uL 4.14-5 .80 normal Not Available [facility] ([facility]) [address] [place], [address], 04/02/2024 08:07:43 04/01/20 24 04/02/2024 CBC WITH DIFFE RENTI AL/PL ATELE T hemoglobin 14.0 g/dL 13.0-1 7.7 normal Not Available [facility] ([facility]) [address] [place], [address], 04/02/2024 08:07:43 04/01/20 24 04/02/2024 CBC WITH DIFFE RENTI AL/PL ATELE T hematocrit 41.1 % 37.5-5 1.0 normal Not Available [facility] ([facility]) [address] [facility], [place], [address], 04/02/2024 08:07:43 04/01/20 24 04/02/2024 CBC WITH DIFFE RENTI AL/PL ATELE T MCV 98 fL 79-97 above high normal Not Available [facility] ([facility]) [address] [facility], [place], [address], 04/02/2024 08:07:43 04/01/20 24 04/02/2024 CBC WITH DIFFE RENTI AL/PL ATELE T MCH 33.3 pg 26.6-3 3.0 above high normal Not Available [facility] ([facility]) [address] [facility], [place], [address], 04/02/2024 08:07:43 04/01/20 24 04/02/2024 CBC WITH DIFFE RENTI AL/PL ATELE T MCHC 34.1 g/dL 31.5-3 5.7 normal Not Available [facility] ([facility]) [address] [place], [address], 04/02/2024 08:07:43 04/01/20 24 04/02/2024 CBC WITH DIFFE RENTI AL/PL ATELE T RDW 12.6 % 11.6-1 5.4 Not Available [facility] ([facility]) [address] [place], [address], 04/02/2024 08:07:43 04/01/20 24 04/02/2024 CBC WITH DIFFE RENTI AL/PL ATELE T platelets 126 x10e3 /uL 150-45 0 below low normal Not Available [facility] ([facility]) [address] [facility], [place], [address], 04/02/2024 08:07:43 04/01/20 24 04/02/2024 CBC WITH DIFFE RENTI AL/PL ATELE T neutrophils 60 % not estab. normal Not Available [facility] ([facility]) [address] [facility], [place], [address], 04/02/2024 08:07:43 04/01/20 24 04/02/2024 CBC WITH DIFFE RENTI AL/PL ATELE T lymphs 25 % not estab. normal Not Available [facility] ([facility]) [address] [facility], [place], [address], 04/02/2024 08:07:43 04/01/20 24 04/02/2024 CBC WITH DIFFE RENTI AL/PL ATELE T monocytes 11 % not estab. normal Not Available [facility] ([facility]) [address] [facility], [place], [address], 04/02/2024 08:07:43 04/01/20 24 04/02/2024 CBC WITH DIFFE RENTI AL/PL ATELE T eos 3 % not estab. normal Not Available [facility] ([facility]) [address] [facility], [place], [address], 04/02/2024 08:07:43 04/01/20 24 04/02/2024 CBC WITH DIFFE RENTI AL/PL ATELE T basos 1 % not estab. normal Not Available [facility] ([facility]) [address] [facility], [place], [address], 04/02/2024 08:07:43 04/01/20 24 04/02/2024 CBC WITH DIFFE RENTI AL/PL ATELE T immature cells OIL PIT ATTENDANT Not Available [facility] ([facility]) [address] [facility], [place], [address], 04/02/2024 08:07:43 04/01/20 24 04/02/2024 CBC WITH DIFFE RENTI AL/PL ATELE T neutrophils (absolute) 3.1 x10e3 /uL 1.4-7. 0 normal Not Available [facility] ([facility]) [address] [place], [address], 04/02/2024 08:07:43 04/01/20 24 04/02/2024 CBC WITH DIFFE RENTI AL/PL ATELE T lymphs (absolute) 1.3 x10e3 /uL 0.7-3. 1 normal Not Available [facility] ([facility]) [address] [place], [address], 04/02/2024 08:07:43 04/01/20 24 04/02/2024 CBC WITH DIFFE RENTI AL/PL ATELE T monocytes(ab solute) 0.6 x10e3 /uL 0.1-0. 9 normal Not Available [facility] ([facility]) [address] [place], [address], 04/02/2024 08:07:43 04/01/20 24 04/02/2024 CBC WITH DIFFE RENTI AL/PL ATELE T eos (absolute) 0.2 x10e3 /uL 0.0-0. 4 normal Not Available [facility] ([facility]) [address] [place], [address], 04/02/2024 08:07:43 04/01/20 24 04/02/2024 CBC WITH DIFFE RENTI AL/PL ATELE T baso (absolute) 0.1 x10e3 /uL 0.0-0. 2 normal Not Available [facility] ([facility]) [address] [place], [address], 04/02/2024 08:07:43 04/01/20 24 04/02/2024 CBC WITH DIFFE RENTI AL/PL ATELE T immature granulocytes 0 % not estab. Not Available [facility] ([facility]) [address] [place], [address], 04/02/2024 08:07:43 04/01/20 24 04/02/2024 CBC WITH DIFFE RENTI AL/PL ATELE T immature grans (abs) 0.0 x10e3 /uL 0.0-0. 1 Not Available [facility] ([facility]) [address] [facility], [place], [address], 04/02/2024 08:07:43 04/01/20 24 04/02/2024 CBC WITH DIFFE RENTI AL/PL ATELE T NRBC OIL PIT ATTENDANT Not Available [facility] ([facility]) [address] [facility], [place], [address], 04/02/2024 08:07:43 04/01/20 24 04/02/2024 CBC WITH DIFFE RENTI AL/PL ATELE T hematology comments: OIL PIT ATTENDANT Not Available [facility] ([facility]) [address] [facility], [place], [address], 04/02/2024 08:07:43 04/01/20 24 04/02/2024 COMP. METAB OLIC PANEL (14) glucose 98 mg/dL 70-99 normal Not Available [facility] ([facility]) [address] [facility], [place], [address], 04/02/2024 08:07:45 04/01/20 24 04/02/2024 COMP. METAB OLIC PANEL (14) BUN 12 mg/dL 8-27 normal Not Available [facility] ([facility]) [address] [facility], [place], [address], 04/02/2024 08:07:45 04/01/20 24 04/02/2024 COMP. METAB OLIC PANEL (14) creatinine 0.90 mg/dL 0.76-1 .27 normal Not Available [facility] ([facility]) [address] [facility], [place], [address], 04/02/2024 08:07:45 04/01/20 24 04/02/2024 COMP. METAB OLIC PANEL (14) eGFR 92 mL/mi n/1.7 3 >59 normal Not Available [facility] ([facility]) [address] [facility], [place], [address], 04/02/2024 08:07:45 04/01/20 24 04/02/2024 COMP. METAB OLIC PANEL (14) BUN/creatini ne ratio 13 10-24 normal Not Available [facility] ([facility]) [address] [facility], [place], [address], 04/02/2024 08:07:45 04/01/20 24 04/02/2024 COMP. METAB OLIC PANEL (14) sodium 143 mmol/ L 134-14 4 normal Not Available [facility] ([facility]) [address] [facility], [place], [address], 04/02/2024 08:07:45 04/01/20 24 04/02/2024 COMP. METAB OLIC PANEL (14) potassium 4.8 mmol/ L 3.5-5. 2 normal Not Available [facility] ([facility]) [address] [facility], [place], [address], 04/02/2024 08:07:45 04/01/20 24 04/02/2024 COMP. METAB OLIC PANEL (14) chloride 103 mmol/ L 96-106 normal Not Available [facility] ([facility]) [address] [facility], [place], [address], 04/02/2024 08:07:45 04/01/20 24 04/02/2024 COMP. METAB OLIC PANEL (14) carbon dioxide, total 22 mmol/ L 20-29 normal Not Available [facility] ([facility]) [address] [facility], [place], [address], 04/02/2024 08:07:45 04/01/20 24 04/02/2024 COMP. METAB OLIC PANEL (14) calcium 9.5 mg/dL 8.6-10 .2 normal Not Available [facility] ([facility]) [address] [place], [address], 04/02/2024 08:07:45 04/01/20 24 04/02/2024 COMP. METAB OLIC PANEL (14) protein, total 7.1 g/dL 6.0-8. 5 normal Not Available [facility] ([facility]) [address] [place], [address], 04/02/2024 08:07:45 04/01/20 24 04/02/2024 COMP. METAB OLIC PANEL (14) albumin 3.9 g/dL 3.9-4. 9 normal Not Available [facility] ([facility]) [address] [place], [address], 04/02/2024 08:07:45 04/01/20 24 04/02/2024 COMP. METAB OLIC PANEL (14) globulin, total 3.2 g/dL 1.5-4. 5 Not Available [facility] ([facility] [address] [facility] [place], [address], 04/02/2024 08:07:45 04/01/20 24 04/02/2024 COMP. METAB OLIC PANEL (14) bilirubin, total 1.7 mg/dL 0.0-1. 2 above high normal Not Available [facility] ([facility]) [address] [facility] [place], [address], 04/02/2024 08:07:45 04/01/20 24 04/02/2024 COMP. METAB OLIC PANEL (14) alkaline phosphatase 91 IU/L 44-121 normal Not Available [facility] ([facility]) [address] [place], [address], 04/02/2024 08:07:45 04/01/20 24 04/02/2024 COMP. METAB OLIC PANEL (14) AST (SGOT) 76 IU/L 0-40 above high normal Not Available [facility] ([facility]) [address] [facility] [place], [address], 04/02/2024 08:07:45 04/01/20 24 04/02/2024 COMP. METAB OLIC PANEL (14) ALT (SGPT) 31 IU/L 0-44 normal Not Available [facility] ([facility]) [address] [facility], [place], [address], 04/02/2024 08:07:45 04/01/20 24 04/02/2024 LIPID PANEL cholesterol, total 153 mg/dL 100-19 9 normal Not Available [facility] ([facility]) [address] [facility] [place], [address], 04/02/2024 08:07:46 04/01/20 24 04/02/2024 LIPID PANEL triglyceride s 82 mg/dL 0-149 normal Not Available [facility] ([facility]) [address] [place], [address], 04/02/2024 08:07:46 04/01/20 24 04/02/2024 LIPID PANEL HDL cholesterol 53 mg/dL >39 normal Not Available [facility] ([facility]) [address] [facility] [place], [address], 04/02/2024 08:07:46 04/01/20 24 04/02/2024 LIPID PANEL VLDL cholesterol rigoberto 16 mg/dL 5-40 Not Available [facility] ([facility]) [address] [facility] [place], [address], 04/02/2024 08:07:46 04/01/20 24 04/02/2024 LIPID PANEL LDL chol calc ([facility]) 84 mg/dL 0-99 Not Available [facility] ([facility]) [address] [facility] [place], [address], 04/02/2024 08:07:46 04/01/20 24 04/02/2024 LIPID PANEL LDL calc comment: OIL PIT ATTENDANT Not Available [facility] ([facility]) [address] [facility], [place], [address], 04/02/2024 08:07:46 04/01/20 24 04/02/2024 URIC ACID uric acid 7.9 mg/dL 3.8-8. 4 normal Thera peuti c targe t for gout patie nts: <6.0 Not Available [facility] ([facility]) [address] [facility], [place], [address], 04/02/2024 08:07:46 11/22/19 25 11/22/2024 CBC WITH DIFFE RENTI AL/PL ATELE T WBC 5.7 x10e3 /uL 3.4-10 .8 normal Not Available [facility] ([facility]) [address] [facility], [place], [address], 11/22/2024 16:05:45 11/22/19 25 11/22/2024 CBC WITH DIFFE RENTI AL/PL ATELE T RBC 4.05 x10e6 /uL 4.14-5 .80 below low normal Not Available [facility] ([facility]) [address] [facility] [place], [address], 11/22/2024 16:05:45 11/22/19 25 11/22/2024 CBC WITH DIFFE RENTI AL/PL ATELE T hemoglobin 13.6 g/dL 13.0-1 7.7 normal Not Available [facility] ([facility]) [address] [place], [address], 11/22/2024 16:05:45 11/22/19 25 11/22/2024 CBC WITH DIFFE RENTI AL/PL ATELE T hematocrit 40.8 % 37.5-5 1.0 normal Not Available [facility] ([facility]) [address] [place], [address], 11/22/2024 16:05:45 11/22/19 25 11/22/2024 CBC WITH DIFFE RENTI AL/PL ATELE T MCV 101 fL 79-97 above high normal Not Available [facility] ([facility]) [address] [place], [address], 11/22/2024 16:05:45 11/22/19 25 11/22/2024 CBC WITH DIFFE RENTI AL/PL ATELE T MCH 33.6 pg 26.6-3 3.0 above high normal Not Available [facility] ([facility]) [address] [place], [address], 11/22/2024 16:05:45 11/22/19 25 11/22/2024 CBC WITH DIFFE RENTI AL/PL ATELE T MCHC 33.3 g/dL 31.5-3 5.7 normal Not Available [facility] ([facility]) [address] [place], [address], 11/22/2024 16:05:45 11/22/19 25 11/22/2024 CBC WITH DIFFE RENTI AL/PL ATELE T RDW 12.5 % 11.6-1 5.4 Not Available [facility] ([facility]) [address] [place], [address], 11/22/2024 16:05:45 11/22/19 25 11/22/2024 CBC WITH DIFFE RENTI AL/PL ATELE T platelets 106 x10e3 /uL 150-45 0 below low normal Not Available [facility] ([facility]) [address] [place], [address], 11/22/2024 16:05:45 11/22/19 25 11/22/2024 CBC WITH DIFFE RENTI AL/PL ATELE T neutrophils 69 % not estab. normal Not Available [facility] ([facility]) [address] [place], [address], 11/22/2024 16:05:45 11/22/19 25 11/22/2024 CBC WITH DIFFE RENTI AL/PL ATELE T lymphs 17 % not estab. normal Not Available [facility] ([facility]) [address] [place], [address], 11/22/2024 16:05:45 11/22/19 25 11/22/2024 CBC WITH DIFFE RENTI AL/PL ATELE T monocytes 10 % not estab. normal Not Available [facility] ([facility]) [address] [facility], [place], [address], 11/22/2024 16:05:45 11/22/19 25 11/22/2024 CBC WITH DIFFE RENTI AL/PL ATELE T eos 3 % not estab. normal Not Available [facility] ([facility]) [address] [facility], [place], [address], 11/22/2024 16:05:45 11/22/19 25 11/22/2024 CBC WITH DIFFE RENTI AL/PL ATELE T basos 1 % not estab. normal Not Available [facility] ([facility]) [address] [place], [address], 11/22/2024 16:05:45 11/22/19 25 11/22/2024 CBC WITH DIFFE RENTI AL/PL ATELE T immature cells OIL PIT ATTENDANT Not Available [facility] ([facility]) [address] [place], [address], 11/22/2024 16:05:45 11/22/19 25 11/22/2024 CBC WITH DIFFE RENTI AL/PL ATELE T neutrophils (absolute) 3.9 x10e3 /uL 1.4-7. 0 normal Not Available [facility] ([facility]) [address] [place], [address], 11/22/2024 16:05:45 11/22/19 25 11/22/2024 CBC WITH DIFFE RENTI AL/PL ATELE T lymphs (absolute) 0.9 x10e3 /uL 0.7-3. 1 normal Not Available [facility] ([facility]) [address] [facility], [place], [address], 11/22/2024 16:05:45 11/22/19 25 11/22/2024 CBC WITH DIFFE RENTI AL/PL ATELE T monocytes(ab solute) 0.5 x10e3 /uL 0.1-0. 9 normal Not Available [facility] ([facility]) [address] [facility], [place], [address], 11/22/2024 16:05:45 11/22/19 25 11/22/2024 CBC WITH DIFFE RENTI AL/PL ATELE T eos (absolute) 0.2 x10e3 /uL 0.0-0. 4 normal Not Available [facility] ([facility]) [address] [facility], [place], [address], 11/22/2024 16:05:45 11/22/19 25 11/22/2024 CBC WITH DIFFE RENTI AL/PL ATELE T baso (absolute) 0.1 x10e3 /uL 0.0-0. 2 normal Not Available [facility] ([facility]) [address] [facility] [place], [address], 11/22/2024 16:05:45 11/22/19 25 11/22/2024 CBC WITH DIFFE RENTI AL/PL ATELE T immature granulocytes 0 % not estab. Not Available [facility] ([facility]) [address] [place], [address], 11/22/2024 16:05:45 11/22/19 25 11/22/2024 CBC WITH DIFFE RENTI AL/PL ATELE T immature grans (abs) 0.0 x10e3 /uL 0.0-0. 1 Not Available [facility] ([facility]) [address] [facility] [place], [address], 11/22/2024 16:05:45 11/22/19 25 11/22/2024 CBC WITH DIFFE RENTI AL/PL ATELE T NRBC OIL PIT ATTENDANT Not Available [facility] ([facility]) [address] [place], [address], 11/22/2024 16:05:45 11/22/19 25 11/22/2024 CBC WITH DIFFE RENTI AL/PL ATELE T hematology comments: NOTE: CBC met refle x crite phani for revie w of perip heral smear by medic al labor atory profe ssion al. Autom ated resul ts were confi rmed by smear revie w. Not Available [facility] ([facility]) [address] [place], [address], 11/22/2024 16:05:45 11/22/19 25 11/22/2024 COMP. METAB OLIC PANEL (14) glucose 104 mg/dL 70-99 above high normal Not Available [facility] ([facility]) [address] [place], [address], 11/22/2024 16:05:46 11/22/19 25 11/22/2024 COMP. METAB OLIC PANEL (14) BUN 9 mg/dL 8-27 normal Not Available [facility] ([facility]) [address] [place], [address], 11/22/2024 16:05:46 11/22/19 25 11/22/2024 COMP. METAB OLIC PANEL (14) creatinine 0.87 mg/dL 0.76-1 .27 normal Not Available [facility] ([facility]) [address] [place], [address], 11/22/2024 16:05:46 11/22/19 25 11/22/2024 COMP. METAB OLIC PANEL (14) eGFR 93 mL/mi n/1.7 3 >59 normal Not Available [facility] ([facility]) [address] [place], [address], 11/22/2024 16:05:46 11/22/19 25 11/22/2024 COMP. METAB OLIC PANEL (14) BUN/creatini ne ratio 10 10-24 normal Not Available [facility] ([facility]) [address] [facility] [place], [address], 11/22/2024 16:05:46 11/22/19 25 11/22/2024 COMP. METAB OLIC PANEL (14) sodium 141 mmol/ L 134-14 4 normal Not Available [facility] ([facility]) [address] [facility] [place], [address], 11/22/2024 16:05:46 11/22/19 25 11/22/2024 COMP. METAB OLIC PANEL (14) potassium 4.6 mmol/ L 3.5-5. 2 normal Not Available [facility] ([facility]) [address] [place], [address], 11/22/2024 16:05:46 11/22/19 25 11/22/2024 COMP. METAB OLIC PANEL (14) chloride 103 mmol/ L 96-106 normal Not Available [facility] ([facility]) [address] [place], [address], 11/22/2024 16:05:46 11/22/19 25 11/22/2024 COMP. METAB OLIC PANEL (14) carbon dioxide, total 22 mmol/ L 20-29 normal Not Available [facility] ([facility]) [address] [place], [address], 11/22/2024 16:05:46 11/22/19 25 11/22/2024 COMP. METAB OLIC PANEL (14) calcium 9.3 mg/dL 8.6-10 .2 normal Not Available [facility] ([facility]) [address] [place], [address], 11/22/2024 16:05:46 11/22/19 25 11/22/2024 COMP. METAB OLIC PANEL (14) protein, total 7.0 g/dL 6.0-8. 5 normal Not Available [facility] ([facility]) [address] [place], [address], 11/22/2024 16:05:46 11/22/19 25 11/22/2024 COMP. METAB OLIC PANEL (14) albumin 3.7 g/dL 3.9-4. 9 below low normal Not Available [facility] ([facility]) [address] [place], [address], 11/22/2024 16:05:46 11/22/19 25 11/22/2024 COMP. METAB OLIC PANEL (14) globulin, total 3.3 g/dL 1.5-4. 5 Not Available [facility] ([facility]) [address] [place], [address], 11/22/2024 16:05:46 11/22/19 25 11/22/2024 COMP. METAB OLIC PANEL (14) bilirubin, total 1.9 mg/dL 0.0-1. 2 above high normal Not Available [facility] ([facility]) [address] [place], [address], 11/22/2024 16:05:46 11/22/19 25 11/22/2024 COMP. METAB OLIC PANEL (14) alkaline phosphatase 115 IU/L 44-121 normal Not Available [facility] ([facility]) [address] [place], [address], 11/22/2024 16:05:46 11/22/19 25 11/22/2024 COMP. METAB OLIC PANEL (14) AST (SGOT) 50 IU/L 0-40 above high normal Not Available [facility] ([facility]) [address] [place], [address], 11/22/2024 16:05:46 11/22/19 25 11/22/2024 COMP. METAB OLIC PANEL (14) ALT (SGPT) 16 IU/L 0-44 normal Not Available [facility] ([facility]) [address] [facility] [place], [address], 11/22/2024 16:05:46 11/22/19 25 11/22/2024 URINA LYSIS , COMPL ETE specific gravity 1.024 1.005- 1.030 normal Not Available [facility] ([facility]) [address] [facility] [place], [address], 11/22/2024 16:05:47 11/22/19 25 11/22/2024 URINA LYSIS , COMPL ETE pH 7.5 5.0-7. 5 normal Not Available [facility] ([facility]) [address] [facility] [place], [address], 11/22/2024 16:05:47 11/22/19 25 11/22/2024 URINA LYSIS , COMPL ETE urine-color YELLOW yellow Not Available [facility] ([facility]) [address] [facility] [place], [address], 11/22/2024 16:05:47 11/22/19 25 11/22/2024 URINA LYSIS , COMPL ETE appearance CLEAR clear Not Available [facility] ([facility]) [address] [facility] [place], [address], 11/22/2024 16:05:47 11/22/19 25 11/22/2024 URINA LYSIS , COMPL ETE WBC esterase 1+ negati ve abnormal Not Available [facility] ([facility]) [address] [facility] [place], [address], 11/22/2024 16:05:47 11/22/19 25 11/22/2024 URINA LYSIS , COMPL ETE protein 1+ negati ve/tra ce abnormal Not Available [facility] ([facility]) [address] [place], [address], 11/22/2024 16:05:47 11/22/19 25 11/22/2024 URINA LYSIS , COMPL ETE glucose NEGATI VE negati ve Not Available [facility] ([facility]) [address] [place], [address], 11/22/2024 16:05:47 11/22/19 25 11/22/2024 URINA LYSIS , COMPL ETE ketones NEGATI VE negati ve Not Available [facility] ([facility]) [address] [place], [address], 11/22/2024 16:05:47 11/22/19 25 11/22/2024 URINA LYSIS , COMPL ETE occult blood NEGATI VE negati ve Not Available [facility] ([facility]) [address] [place], [address], 11/22/2024 16:05:47 11/22/19 25 11/22/2024 URINA LYSIS , COMPL ETE bilirubin NEGATI VE negati ve Not Available [facility] ([facility]) [address] [place], [address], 11/22/2024 16:05:47 11/22/19 25 11/22/2024 URINA LYSIS , COMPL ETE urobilinogen ,semi-qn 1.0 mg/dL 0.2-1. 0 normal Not Available [facility] ([facility]) [address] [place], [address], 11/22/2024 16:05:47 11/22/19 25 11/22/2024 URINA LYSIS , COMPL ETE nitrite, urine POSITI VE negati ve abnormal Not Available [facility] ([facility]) [address] [place], [address], 11/22/2024 16:05:47 11/22/19 25 11/22/2024 URINA LYSIS , COMPL ETE microscopic examination SEE BELOW: Micro scopi c was indic ated and was perfo rmed. Not Available [facility] ([facility]) [address], [place], [address], 11/22/2024 16:05:47 11/22/19 25 11/22/2024 URINA LYSIS , COMPL ETE WBC NONE SEEN /hpf 0 - 5 Not Available [facility] ([facility]) [address] [facility] [place], [address], 11/22/2024 16:05:47 11/22/19 25 11/22/2024 URINA LYSIS , COMPL ETE RBC 0-2 /hpf 0 - 2 Not Available [facility] ([facility]) [address] [facility] [place], [address], 11/22/2024 16:05:47 11/22/19 25 11/22/2024 URINA LYSIS , COMPL ETE epithelial cells (non renal) NONE SEEN /hpf 0 - 10 Not Available [facility] ([facility]) [address] [facility] [place], [address], 11/22/2024 16:05:47 11/22/19 25 11/22/2024 URINA LYSIS , COMPL ETE epithelial cells (renal) OIL PIT ATTENDANT Not Available [facility] ([facility]) [address] [facility], [place], [address], 11/22/2024 16:05:47 11/22/19 25 11/22/2024 URINA LYSIS , COMPL ETE casts NONE SEEN /lpf none seen Not Available [facility] ([facility]) [address] [facility], [place], [address], 11/22/2024 16:05:47 11/22/19 25 11/22/2024 URINA LYSIS , COMPL ETE cast type OIL PIT ATTENDANT Not Available [facility] ([facility]) [address] [facility], [place], [address], 11/22/2024 16:05:47 11/22/19 25 11/22/2024 URINA LYSIS , COMPL ETE crystals OIL PIT ATTENDANT Not Available [facility] ([facility]) [address] [facility], [place], [address], 11/22/2024 16:05:47 11/22/19 25 11/22/2024 URINA LYSIS , COMPL ETE crystal type OIL PIT ATTENDANT Not Available [facility] ([facility]) [address] [facility] [place], [address], 11/22/2024 16:05:47 11/22/19 25 11/22/2024 URINA LYSIS , COMPL ETE mucus threads OIL PIT ATTENDANT Not Available [facility] ([facility]) [address] [place], [address], 11/22/2024 16:05:47 11/22/19 25 11/22/2024 URINA LYSIS , COMPL ETE bacteria NONE SEEN none seen/f ew Not Available [facility] ([facility]) [address] [facility] [place], [address], 11/22/2024 16:05:47 11/22/19 25 11/22/2024 URINA LYSIS , COMPL ETE yeast OIL PIT ATTENDANT Not Available [facility] ([facility]) [address] [place], [address], 11/22/2024 16:05:47 11/22/19 25 11/22/2024 URINA LYSIS , COMPL ETE trichomonas OIL PIT ATTENDANT Not Available [facility] ([facility]) [address] [place], [address], 11/22/2024 16:05:47 11/22/19 25 11/22/2024 URINA LYSIS , COMPL ETE comment OIL PIT ATTENDANT Not Available [facility] ([facility]) [address] [place], [address], 11/22/2024 16:05:47 11/22/19 25 11/22/2024 URINA LYSIS , COMPL ETE microscopic examination OIL PIT ATTENDANT Not Available [facility] ([facility]) [address] [place], [address], 11/22/2024 16:05:47 11/22/19 25 11/22/2024 ALBUM IN/CR EAT RATIO , RANDO M UR creatinine, urine 214.0 mg/dL not estab. normal Not Available [facility] ([facility]) [address] [facility] [place], [address], 11/22/2024 16:05:48 11/22/19 25 11/22/2024 ALBUM IN/CR EAT RATIO , RANDO M UR albumin, urine 11.0 ug/mL not estab. Not Available [facility] ([facility]) [address] [place], [address], 11/22/2024 16:05:48 11/22/19 25 11/22/2024 ALBUM IN/CR EAT RATIO , RANDO M UR alb/creat ratio 5 mg/g_ creat 0-29 Selena l: 0 - 29 Moder ately incre ased: 30 - 300 Sever aram incre ased: >300 Not Available [facility] ([facility]) [address] [place], [address], 11/22/2024 16:05:48 02/10/20 25 02/10/2025 CMP14 +EGFR glucose 92 mg/dL 70-99 normal Not Available [facility] ([facility]) [address] [place], [address], 02/10/2025 12:06:11 02/10/20 25 02/10/2025 CMP14 +EGFR BUN 11 mg/dL 8-27 normal Not Available [facility] ([facility]) [address] [place], [address], 02/10/2025 12:06:11 02/10/20 25 02/10/2025 CMP14 +EGFR creatinine 0.89 mg/dL 0.76-1 .27 normal Not Available [facility] ([facility]) [address] [place], [address], 02/10/2025 12:06:11 02/10/20 25 02/10/2025 CMP14 +EGFR eGFR 92 mL/mi n/1.7 3 >59 normal Not Available [facility] ([facility]) [address] [facility] [place], [address], 02/10/2025 12:06:11 02/10/20 25 02/10/2025 CMP14 +EGFR BUN/creatini ne ratio 12 10-24 normal Not Available [facility] ([facility]) [address] [facility] [place], [address], 02/10/2025 12:06:11 02/10/20 25 02/10/2025 CMP14 +EGFR sodium 137 mmol/ L 134-14 4 normal Not Available [facility] ([facility]) [address] [facility] [place], [address], 02/10/2025 12:06:11 02/10/20 25 02/10/2025 CMP14 +EGFR potassium 3.7 mmol/ L 3.5-5. 2 normal Not Available [facility] ([facility]) [address] [facility] [place], [address], 02/10/2025 12:06:11 02/10/20 25 02/10/2025 CMP14 +EGFR chloride 99 mmol/ L 96-106 normal Not Available [facility] ([facility]) [address] [facility] [place], [address], 02/10/2025 12:06:11 02/10/20 25 02/10/2025 CMP14 +EGFR carbon dioxide, total 26 mmol/ L 20-29 normal Not Available [facility] ([facility]) [address] [place], [address], 02/10/2025 12:06:11 02/10/20 25 02/10/2025 CMP14 +EGFR calcium 9.1 mg/dL 8.6-10 .2 normal Not Available [facility] ([facility]) [address] [place], [address], 02/10/2025 12:06:11 02/10/2002/10/2025 CMP14 +EGFR protein, total 7.2 g/dL 6.0-8. 5 normal Not Available [facility] ([facility]) [address] [place], [address], 02/10/2025 12:06:11 02/10/2002/10/2025 CMP14 +EGFR albumin 3.7 g/dL 3.9-4. 9 below low normal Not Available [facility] ([facility]) [address] [place], [address], 02/10/2025 12:06:11 02/10/20 25 02/10/2025 CMP14 +EGFR globulin, total 3.5 g/dL 1.5-4. 5 Not Available [facility] ([facility]) [address] [facility] [place], [address], 02/10/2025 12:06:11 02/10/2002/10/2025 CMP14 +EGFR bilirubin, total 4.4 mg/dL 0.0-1. 2 above high normal Not Available [facility] ([facility]) [address] [facility] [place], [address], 02/10/2025 12:06:11 02/10/20 25 02/10/2025 CMP14 +EGFR alkaline phosphatase 129 IU/L 47-123 above high normal Not Available [facility] ([facility]) [address] [facility] [place], [address], 02/10/2025 12:06:11 02/10/20 25 02/10/2025 CMP14 +EGFR AST (SGOT) 71 IU/L 0-40 above high normal Not Available [facility] ([facility]) [address] [facility] [place], [address], 02/10/2025 12:06:11 02/10/20 25 02/10/2025 CMP14 +EGFR ALT (SGPT) 17 IU/L 0-44 normal Not Available [facility] ([facility]) [address] [facility] [place], [address], 02/10/2025 12:06:11 02/10/20 25 02/10/2025 CBC WITH DIFFE RENTI AL/PL ATELE T WBC 10.6 x10e3 /uL 3.4-10 .8 normal Not Available [facility] ([facility]) [address] [facility] [place], [address], 02/10/2025 12:06:13 02/10/20 25 02/10/2025 CBC WITH DIFFE RENTI AL/PL ATELE T RBC 4.04 x10e6 /uL 4.14-5 .80 below low normal Not Available [facility] ([facility]) [address] [facility] [place], [address], 02/10/2025 12:06:13 02/10/20 25 02/10/2025 CBC WITH DIFFE RENTI AL/PL ATELE T hemoglobin 13.5 g/dL 13.0-1 7.7 normal Not Available [facility] ([facility]) [address] [place], [address], 02/10/2025 12:06:13 02/10/2002/10/2025 CBC WITH DIFFE RENTI AL/PL ATELE T hematocrit 40.6 % 37.5-5 1.0 normal Not Available [facility] ([facility]) [address] [place], [address], 02/10/2025 12:06:13 02/10/20 25 02/10/2025 CBC WITH DIFFE RENTI AL/PL ATELE T MCV 101 fL 79-97 above high normal Not Available [facility] ([facility]) [address] [place], [address], 02/10/2025 12:06:13 02/10/20 25 02/10/2025 CBC WITH DIFFE RENTI AL/PL ATELE T MCH 33.4 pg 26.6-3 3.0 above high normal Not Available [facility] ([facility]) [address] [facility] [place], [address], 02/10/2025 12:06:13 02/10/20 25 02/10/2025 CBC WITH DIFFE RENTI AL/PL ATELE T MCHC 33.3 g/dL 31.5-3 5.7 normal Not Available [facility] ([facility]) [address] [facility] [place], [address], 02/10/2025 12:06:13 02/10/20 25 02/10/2025 CBC WITH DIFFE RENTI AL/PL ATELE T RDW 12.3 % 11.6-1 5.4 Not Available [facility] ([facility]) [address] [facility] [place], [address], 02/10/2025 12:06:13 02/10/20 25 02/10/2025 CBC WITH DIFFE RENTI AL/PL ATELE T platelets 80 x10e3 /uL 150-45 0 alert low Actua l plate let count may be somew hat highe r than repor miguel due to aggre gatio n of plate lets in this sampl e. Not Available [facility] ([facility]) [address] [facility] [place], [address], 02/10/2025 12:06:13 02/10/20 25 02/10/2025 CBC WITH DIFFE RENTI AL/PL ATELE T neutrophils 74 % not estab. normal Not Available [facility] ([facility]) [address] [facility] [place], [address], 02/10/2025 12:06:13 02/10/20 25 02/10/2025 CBC WITH DIFFE RENTI AL/PL ATELE T lymphs 17 % not estab. normal Not Available [facility] ([facility]) [address] [place], [address], 02/10/2025 12:06:13 02/10/2002/10/2025 CBC WITH DIFFE RENTI AL/PL ATELE T monocytes 5 % not estab. normal Not Available [facility] ([facility]) [address] [place], [address], 02/10/2025 12:06:13 02/10/20 25 02/10/2025 CBC WITH DIFFE RENTI AL/PL ATELE T eos 3 % not estab. normal Not Available [facility] ([facility]) [address] [place], [address], 02/10/2025 12:06:13 02/10/20 25 02/10/2025 CBC WITH DIFFE RENTI AL/PL ATELE T basos 1 % not estab. normal Not Available [facility] ([facility]) [address] [place], [address], 02/10/2025 12:06:13 02/10/20 25 02/10/2025 CBC WITH DIFFE RENTI AL/PL ATELE T immature cells OIL PIT ATTENDANT Not Available [facility] ([facility]) [address] [place], [address], 02/10/2025 12:06:13 02/10/20 25 02/10/2025 CBC WITH DIFFE RENTI AL/PL ATELE T neutrophils (absolute) 7.8 x10e3 /uL 1.4-7. 0 above high normal Not Available [facility] ([facility]) [address] [place], [address], 02/10/2025 12:06:13 02/10/20 25 02/10/2025 CBC WITH DIFFE RENTI AL/PL ATELE T lymphs (absolute) 1.8 x10e3 /uL 0.7-3. 1 normal Not Available [facility] ([facility]) [address] [place], [address], 02/10/2025 12:06:13 02/10/20 25 02/10/2025 CBC WITH DIFFE RENTI AL/PL ATELE T monocytes(ab solute) 0.6 x10e3 /uL 0.1-0. 9 normal Not Available [facility] ([facility]) [address] [facility] [facility], [place], [address], 02/10/2025 12:06:13 02/10/20 25 02/10/2025 CBC WITH DIFFE RENTI AL/PL ATELE T eos (absolute) 0.3 x10e3 /uL 0.0-0. 4 normal Not Available [facility] ([facility]) [address] [facility], [place], [address], 02/10/2025 12:06:13 02/10/20 25 02/10/2025 CBC WITH DIFFE RENTI AL/PL ATELE T baso (absolute) 0.1 x10e3 /uL 0.0-0. 2 normal Not Available [facility] ([facility]) [address] [facility], [place], [address], 02/10/2025 12:06:13 02/10/20 25 02/10/2025 CBC WITH DIFFE RENTI AL/PL ATELE T immature granulocytes 0 % not estab. Not Available [facility] ([facility]) [address] [facility], [place], [address], 02/10/2025 12:06:13 02/10/20 25 02/10/2025 CBC WITH DIFFE RENTI AL/PL ATELE T immature grans (abs) 0.0 x10e3 /uL 0.0-0. 1 Not Available [facility] ([facility]) [address] [facility], [place], [address], 02/10/2025 12:06:13 02/10/20 25 02/10/2025 CBC WITH DIFFE RENTI AL/PL ATELE T NRBC OIL PIT ATTENDANT Not Available [facility] ([facility]) [address] [facility], [place], [address], 02/10/2025 12:06:13 02/10/20 25 02/10/2025 CBC WITH DIFFE RENTI AL/PL ATELE T hematology comments: Note: CBC met refle x crite phani for revie w of perip heral smear by medic al labor atory profe ssion al. Autom ated resul ts were confi rmed by smear revie w. Not Available [facility] ([facility]) [address] [facility], [place], [address], 02/10/2025 12:06:13 02/10/20 25 02/10/2025 MIGUEL ANGEL+L IPASE amylase 58 U/L 31-110 normal Not Available [facility] ([facility]) [address] [facility], [place], [address], 02/10/2025 12:06:14 02/10/20 25 02/10/2025 MIGUEL ANGEL+L IPASE lipase 62 U/L 13-78 normal Not Available [facility] ([facility]) [address] [facility], [place], [address], 02/10/2025 12:06:14 02/10/20 25 02/10/2025 TSH RFX ON ABNOR MAL TO FREE T4 TSH 2.300 uIU/m L 0.450- 4.500 normal Not Available [facility] ([facility]) [address] [facility], [place], [address], 02/10/2025 12:06:14 02/04/20 24 02/04/2024 elect rocar diogr am No observ ation record ed. dominique In-Office Order Internal Use Only DO Not Attach Compendium DO Not Attach Compendium, Do Not Delete/merge, [id number] 04/07/2024 11:28:16 02/04/20 24 elect rocar diogr am No observ ation record ed. dominique In-Office Order Internal Use Only DO Not Attach Compendium DO Not Attach Compendium, Do Not Delete/merge, [id number] 04/07/2024 11:28:16 05/01/19 25 05/01/2024 US, liver US Liver Reason : Abnorm al LFT. Clinic al Questi on: Cirrho sis. COMPAR LOC: 11/01/19 19; CT Abdome n 10/01/19 21. IMAGIN G TECHNI QUE: Graysc jessica and color Dopple r ultras ound examin ation of the liver. FINDIN GS: Liver: Coarse hepati c echote xture and echoge sheeba parenc hyma. No suspic ious lesion . Subcen timete r hypode nsitie s descri bed on compar loc CT are not visual ized sonogr aphica lly. Mildly nodula r hepati c contou r. Main portal vein patent with normal hepato petal direct ion of flow. Biliar y Tree: No intrah epatic or extrah epatic bile duct dilati on is identi fied. Common duct: 0.6 cm. IMPRES SAL: Mildly cirrho tic morpho logy. No suspic ious lesion . WSN: [id number] Orderi ng Physic yadira: See Pinzon Dictmeche ed By: Ricardo Woody MD Dictat ed Date/T kenyetta: 1:24 pm Review ed By: Ricardo Woody MD Signed By: Ricardo Woody MD Signed Date/T kenyetta: 1:24 pm Transc ribed By: DES Transc ribed Date/T kenyetta: 8:52 am [facility]ien t [facility] [address] [place], [address], 11/24/2024 11:36:25 Result Notes None recorded. Problems Name Problem SNOMED Code Status Onset Date Resolution Date Notes Provider Name and Address Organization Details Recorded Time Sinusiti s 26239826 Completed 06/03/2014 See Lau MD [address], [place], [address], [facility] 6 21:46:58 Increase d liver function 94752580 Active See Lau MD [address], [place], [address], [facility] 6 21:46:58 Disease of liver 224866547 Active See Lau MD [address], [place], [address], [facility] 6 21:46:58 Steatoti c liver disease 391987714 Completed 11/25/2024 See Lau MD [address], [place], [address], [facility] 5 06:45:16 Body mass index 25-29 - overweig ht 761873207 Completed [facility]11[facility] 10:[facility] Sinusiti s 96014689 Completed 06/11/2015 See Lau MD [address], [place], [address], [facility] 6 21:46:58 Proteinu phani 71458150 Completed 11/22/2018 See Lau MD [address], [place], [address], [facility] 5 11:33:04 Adenomat ous polyp of colon 909062480 Completed 02/11/2019 See Lau MD [address], [place], [address], [facility] 9 11:40:30 Proteinu phani 66980004 Completed 11/24/2024 See Lau MD [address], [place], [address], [facility] 5 11:33:04 Proteinu phani 19712453 Active See aLu MD [address], [place], [address], [facility] 5 11:33:04 Pure hypercho lesterol emia 778283728 Completed 201210/14/2013 IMPRESSI ON: TOLERATI NG RX WELL. WILL REASSESS CONTROL. TITRATE DOSE TO GOAL LDL <130.; RECORDED 04/08/19 13 8:03AM BY SAVAGE ALEXIS ON/JAMES Lau MD [address] [facility] [address], [place], [address], [facility] 7 10:08:09 Essentia l hyperten sal 28273938 Completed 201210/14/2013 RECORDED 04/08/19 13 8:03AM BY SAVAGE ALEXIS/JAMES Lau MD [address] [facility] [address], [place], [address], [facility] 6 21:46:58 Heart disease 52770301 Completed 201202/11/2019 DATE: 10/11/19 13 See Lau MD [address] [facility] [address], [place], [address], [facility] 9 11:33:07 Disease of liver 038931235 Completed 201211/10/2013 IMPRESSI ON: ? IF SECONDAR Y TO MEDS VS ETOH USE VS OTHER LIVER DISEASE. IF ELEVATIO NS PERSISTA NT WILL CHECK U/S.; RECORDED 01/16/20 13 8:42AM BY KHANG CH MA, SAVAGE ON/JAMES Lau MD [address] [facility] [address], [place], [address], [facility] 6 21:46:58 Patient status finding [id number] Completed 201211/10/2013 RECORDED 01/16/20 13 8:42AM BY KHANG CH MA, SAVAGE ON/JAMES Lau MD [address] [facility] [address], [place], [address], [facility] 6 21:46:58 Disease of liver 134388912 Completed 201210/14/2013 IMPRESSI ON: ? IF SECONDAR Y TO MEDS VS ETOH USE VS OTHER LIVER DISEASE. IF ELEVATIO NS PERSISTA NT WILL CHECK U/S.; RECORDED 01/16/20 13 8:42AM BY KHANG CH MA, SAVAGE ON/JAMES Lau MD [address] [facility] [address], [place], [address], [facility] 6 21:46:58 Patient status finding [id number] Completed 201210/14/2013 RECORDED 01/16/20 13 8:42AM BY KHANG CH MA, SAVAGE ON/JAMES Lau MD [address] [facility] [address], [place], [address], [facility] 6 21:46:58 Adult health examinat ion Completed 201210/14/2013 IMPRESSI ON: IMMUNIZA TION STATUS UTD SHORT OF ZOSTAVAX WHICH PT WILL INQUIRE TO WHETHER INS COVERS. SCREEING IS UTD. REGULAR DENTAL CARE AND SEATBELT USE ADVISED. DISTRACT ED DRIVING DISCUSSE D.; RECORDED 01/16/20 13 8:42AM BY KHANG CH MA, SAVAGE ON/JAMES Lau MD [address], [place], [address], [facility] 6 21:46:58 Immuniza tion refused Completed 201211/10/2013 RECORDED 01/22/20 13 10:15AM BY VINAY WOODRUFF MA, SAVAGE ON/JAMES Lau MD [address] [facility] [address], [place], [address], [facility] 6 21:46:58 Immuniza tion refused Completed 201210/14/2013 RECORDED 01/22/20 13 10:15AM BY VINAY WOODRUFF MA, ANNOTATI ON/JAMES Lau MD [address], [place], [address], [facility] 6 21:46:58 Influenz a vaccine needed [id number] 06 Completed 201211/10/2013 RECORDED 01/24/20 13 9:29AM BY VINAY WOODRUFF MA, OFFICE VISIT See Lau MD [address], [place], [address], [facility] 6 21:46:58 Influenz a vaccine needed 15694114677 06 Completed 201210/14/2013 RECORDED 01/24/20 13 9:29AM BY VINAY WOODRUFF MA, OFFICE VISIT See Lau MD [address], [place], [address], [facility] 6 21:46:58 Renewal of prescrip tion Completed 201311/10/2013 RECORDED 05/15/19 14 9:56AM BY VINAY WOODRUFF MA, ANNOTATI ON/JAMES Lau MD [address], [place], [address], [facility] 6 21:46:58 Atrial fibrilla tion 37072580 Completed 201310/02/2023 STORY: S/P ABLATION 12/2012 See Lau MD [address], [place], [address], [facility] 4 14:47:13 Gout 97699919 Active 2013 See Lau MD [address], [place], [address], [facility] 7 21:53:40 History of polyp of colon 135785403 Active 2013 See Lau MD [address], [place], [address], [facility] 6 21:46:58 Hydrocel e Active 2013 BILATERA L See Lau MD [address], [place], [address], [facility] 6 21:46:58 Pure hypercho lesterol emia 510052053 Active 2013 See Lau MD [address], [facility] [place], [address], [facility] 7 10:08:09 Essentia l hyperten sal 56387371 Active 2013 See Lau MD [address], [facility] [place], [address], [facility] 6 21:46:58 Renewal of prescrip tion Completed 201310/14/2013 RECORDED 05/15/19 14 9:56AM BY VINAY WOODRUFF MA, ANNOTATI ON/ADDEN DUM See Lau MD [address], [place], [address], [facility] 6 21:46:58 Obstruct ina sleep apnea syndrome 09128562 Active 2013 See Lau MD [address], [facility] [place], [address], [facility] 9 14:21:36 Overweig ht 377149508 Completed 201306/23/2016 IMPRESSI ON: POTENTIA L [facility] MAOLY CASTAÑEDA R DIET AND EXERCISE HABITS ADVISED. ; RECORDED 05/15/19 14 12:14PM BY SEE Moss MD, OFFICE VISIT See Lau MD [address], [place], [address], [facility] 7 10:06:59 Rosamargareta 540381429 Active 2013 See Lau MD [address], [place], [address], [facility] 6 21:46:58 Psychose xual dysfunct ion 005858105 Active 2013 See Lau MD [address], [place], [address], [facility] 6 21:46:58 Thromboc ytopenic disorder 534143196 Completed 201810/21/2018 See Lau MD [address], [place], [address], [facility] 4 21:05:41 Thromboc ytopenic disorder 126602501 Active 2018 See Lau MD [address], [place], [address], [facility] 4 21:05:41 Macrocyt ic anemia 90458099 Active 2018 See Lau MD [address], [place], [address], [facility] 9 13:10:31 Alcohol dependen ce 10836494 Active 2018 See Lau MD [address], [place], [address], [facility] 9 14:26:24 Gastroes ophageal reflux disease 588966263 Active 2018 See Lau MD [address], [place], [address], [facility] 9 11:34:12 History of adenomat ous polyp of colon 107693194 Active 2018 See Lau MD [address], [place], [address], [facility] 9 11:40:26 Strain of hamstrin g muscle 19682539719 4 Completed 201905/14/2020 left See Lau MD [address] [facility] [address], [place], [address], [facility] 1 10:43:38 Paroxysm al atrial fibrilla tion 804059952 Active 2019 See Lau MD [address] [facility] [address], [place], [address], [facility] 0 20:49:17 Atrioven tricular block 743133663 Active 2020 See Lau MD [address], [place], [address], [facility] 1 11:19:25 Neuropat hy 881999101 Active 2020 See Lau MD [address], [place], [address], [facility] 1 15:34:58 Sacral radiculo nilesh 569955293 Active 2020 left S1 See Lau MD [address], [place], [address], [facility] 1 16:51:37 Herpes zoster 9787500 Active 2020 See Lau MD [address], [place], [address], [facility] 1 19:53:04 Prostate specific antigen above referenc e range 039881961 Completed 202102/04/2024 See Lau MD [address], [place], [address], [facility] 4 10:40:54 Macrocyt osis 211635819 Completed 202105/23/2022 See Lau MD [address], [place], [address], [facility] 3 14:57:40 Carcinom a of prostate 930575008 Completed 202212/24/2024 s/p XRT See Lau MD [address], [place], [address], [facility] 5 12:05:53 Congenit al hydrocel e 46159825 Active 2022 left See Lau MD [address], [place], [address], [facility] 3 08:48:02 Levoscol iosis 58642247760 4102 Active 2022 See Lau MD [address], [place], [address], [facility] 3 15:26:54 Arthriti s of facet joint of lumbar spine 52388804048 104633 Active 2022 See Lau MD [address], [place], [address], [facility] 3 15:27:11 Osteoart hritis of hip 127799452 Active 2022 See Lau MD [address], [place], [address], [facility] 3 07:33:53 Spinal stenosis of lumbar region 52318218 Active 2022 See Lau MD [address], [place], [address], [facility] 3 07:42:40 Urgent desire to urinate 99706573 Active 2022 See Lau MD [address] [facility] [address], [place], [address], [facility] 3 21:59:04 First degree atrioven tricular block 477201272 Active 2023 See Lau MD [address] [facility] [address], [place], [address], [facility] 4 09:28:21 Moderate alcohol dependen ce 330278844 Active 2023 See Lau MD [address] [facility] [address], [place], [address], [facility] 4 15:04:56 Tubular adenomat ous polyp of colon 894629007 Active 2024 See Lau MD [address], [place], [address], [facility] 5 10:45:32 Early cirrhosi s 412462102 Active 2024 See Lau MD [address] [facility] [address], [place], [address], [facility] 5 07:10:56 History of malignan t neoplasm of prostate 318482342 Active 2024 See Lau MD [address] [facility] [address], [place], [address], [facility] 5 12:06:04 Hiccough s 17593355 Active 2024 JENNIFFER MORALES [place], FIELD ATTENDANT- [address], [place], [address], [facility] 5 14:50:29 Problem Notes None recorded. Procedures Surgical History Date Name Laterality Status Provider Name and Address Organization Details Recorded Time 02/19/20 24 Colonoscopy completed See Lau MD [address] [facility], [place], [address], [facility] 04/09/2024 10:45:11 10/02/19 24 Advanced Care Planning completed See Lau MD [address] [facility], [place], [address], [facility] 10/02/2023 15:16:24 04/27/19 23 transrectal biopsy of prostate completed See Lau MD [address] [facility], [place], [address], [facility] 05/10/2022 08:47:47 12/03/19 22 Suture/Staple removal completed SABRINA BALTAZAR MD [address] [facility], [place], [address], [facility] 12/02/2021 13:54:45 05/14/19 21 Six-Item Cognitive Test completed Mary Pierre MA [facility] 05/14/2020 10:14:14 07/25/19 19 Colonoscopy completed See Lau MD [address] [address], [place], [address], [facility] 02/11/2019 11:38:51 10/01/19 13 Endovas non-cardiac abl cath completed See Lau MD [address], [address], [facility] 12/08/2013 06:12:19 05/03/19 13 catheter ablation of arrhythmogenic focus completed See Lau MD [address], [address], [facility] 02/11/2019 11:41:00 Imaging Results None recorded. Procedure [...] e 50 mcg/actua tion nasal spray,juan pension [place] 2 sprays every day by intranas al [...] Available Not Available Not Available Fluad Quad [id number] (65yr up)(PF) 60 mcg (15 mcg x 4)/0.5mL IM syringe 05/14 completed Not Available Not Available Not Available Vitals Date Recorded Body height Body mass index (BMI) Body weight Heart rate Oxygen saturation Body temperature Systolic And Diastolic Provider Name and Address Organization Details Last Updated DateTime 5 177.17 cm 26.5 kg/m2 37436.8 g 64 /min 98 % 98.1 [degF] 116/61 mm[Hg] [facility] 5 11:05:51 Date Recorded Body height Body mass index (BMI) Body weight Heart rate Oxygen saturation Body temperature Systolic And Diastolic Provider Name and Address Organization Details Last Updated DateTime 4 177.17 cm 25.1 kg/m2 55076.5 8 g 75 /min 98 % 98.2 [degF] 113/65 mm[Hg] [facility] 4 14:15:02 Date Recorded Body height Body mass index (BMI) Body weight Heart rate Oxygen saturation Body temperature Systolic And Diastolic Systolic And Diastolic Provider Name and Address Organization Details Last Updated DateTime 5 177.17 cm 24.9 kg/m2 00591.8 9 g 61 /min 98 % 97.9 [degF] 146/75 mm[Hg] 142/76 mm[Hg] Jeaneth Cabrera [facility] 5 11:17:48 Date Recorded Body height Body mass index (BMI) Body weight Heart rate Oxygen saturation Body temperature Systolic And Diastolic Provider Name and Address Organization Details Last Updated DateTime 4 177.17 cm 26 kg/m2 75219.6 3 g 61 /min 98 % 97.5 [degF] 157/73 mm[Hg] Jeaneth Blake [facility] 4 10:02:21 Date Recorded Body height Body mass index (BMI) Body weight Heart rate Oxygen saturation Body temperature Systolic And Diastolic Provider Name and Address Organization Details Last Updated DateTime 5 177.17 cm 24.4 kg/m2 08028.1 1 g 94 /min 96 % 99.3 [degF] 137/84 mm[Hg] Rose Marie Skaggs [facility] 5 13:58:43 Social History Question Answer Notes LastModified by Organizat ion Details LastModified Time Tobacco Smoking Status Never Smoker Not Available [facility] 02/03/2020 03:36:40 Do You Have An Advance Directive? Yes Information not available 02/08/2023 Is Blood Transfusion Acceptable In An Emergency? Yes [id number] Information not available 02/03/2020 What Is Your Level Of Caffeine Consumption? None Information not available 10/02/2023 How Much Tobacco Do You Chew? None [id number] Information not available 02/03/2020 What Type Of Diet Are You Following? REGULAR [id number] Information not available 02/03/2020 Which Illicit Or Recreational Drugs Have You Used? None [id number] Information not available 02/03/2020 Education 4 Year [...] Age Did You Start Smoking Tobacco? 1 [id number] Information not available 02/03/2020 Are You Passively Exposed To Smoke? No Information not available 06/03/2014 How Much Tobacco Do You Smoke? No [id number] Information not available 02/03/2020 Do You Use Sunscreen Routinely? Yes [id number] Information not available 02/03/2020 How Many Years Have You Smoked Tobacco? 0 [id number] Information not available 02/03/2020 Sex: Unknown Functional Status Question Answer Note LastModified by Organizat ion Details LastModified Time Do you use any illicit or recreational drugs? No Information not available 05/17/2021 Do you or have you ever used any other forms of tobacco or nicotine? No Information not available 05/17/2021 What is your level of alcohol consumption? Moderate [id number] Information not available 02/03/2020 Do you or have you ever used smokeless tobacco? 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 YESWOREST Information not available 05/17/2021 Are you able to care for yourself independently? Yes [id number] Information not available 02/03/2020 Do you or have you ever used e-cigarettes or vape? Never used electronic cigarettes [id number] Information not available 02/03/2020 What is your [...] virus, quadrivalent, preservative 0 completed Not Available [facility] 12/08/2021 13:29:19 Hep B, adult 5 completed Not Available [facility] 04/19/2019 02:21:35 Influenza, adjuvanted, quadrivalent, PF 0 completed STEPHEN Corrales, [facility] 05/17/2021 13:37:51 COVID-19, mRNA, LNP-S, PF, 30 mcg/0.3 mL dose 1 completed STEPHEN Gonzales, [facility] 07/24/2022 10:49:03 COVID-19, mRNA, LNP-S, PF, 30 mcg/0.3 mL dose 1 completed STEPHEN Gonzales, [facility] 07/24/2022 10:49:03 Hep B, adult 5 completed Not Available [facility] 04/19/2019 02:21:35 Hep A, adult 5 completed Not Available [facility] 04/19/2019 02:21:34 zoster recombinant 0 completed Not Available [facility] 02/08/2023 10:10:44 Influenza, high-dose, quadrivalent, PF 1 completed STEPHEN Gonzales, [facility] 07/24/2022 10:49:03 COVID-19, mRNA, LNP-S, PF, 100 mcg/0.5mL dose or 50 mcg/0.25mL dose 1 completed STEPHEN Gonzales, [facility] 07/24/2022 10:49:03 Hep A, adult 6 completed Not Available [facility] 04/19/2019 02:21:34 Hep B, adult 6 completed Not Available [facility] 04/19/2019 02:21:35 Influenza, split virus, quadrivalent, PF 6 completed Not Available [facility] 04/19/2019 02:22:04 Influenza, split virus, quadrivalent, PF 7 completed Not Available [facility] 04/19/2019 02:22:13 Influenza, split virus, quadrivalent, PF 9 completed Not Available [facility] 04/19/2019 02:22:16 Influenza, split virus, trivalent, preservative 2 completed Not Available [facility] 05/23/2022 14:27:26 Tdap 9 completed Not Available [facility] 05/23/2022 14:27:26 influenza, seasonal, intradermal, preservative free 3 completed Not Available [facility] 05/23/2022 14:27:26 Tdap 9 completed Not Available [facility] 04/19/2019 02:21:51 Influenza, split virus, quadrivalent, PF 9 completed Not Available [facility] 04/19/2019 02:22:10 Influenza, split virus, trivalent, PF 4 completed Not Available [facility] 04/19/2019 02:21:57 pneumococcal polysaccharide PPV23 1 completed STEPHEN Barillas, [facility] 05/14/2020 11:51:06 Influenza, high-dose, quadrivalent, PF 2 [facility] 14:33:44 Influenza, high-dose, quadrivalent, PF 3 completed See Lau MD [address], [address], [facility] 02/08/2023 11:12:19 Influenza, high-dose, trivalent, PF 4 completed See Lau MD [address], [address], [facility] 02/27/2024 20:38:20 Past Encounters Encounter ID Performer Location Encounter Start Date Encounter Closed Date Diagnosis/Indication Diagnosis SNOMED-CT Code Diagnosis ICD10 Code Diagnosis IMO Codes Diagnosis Note [id number] [facility] erce [address] [facility] [address] [facility] [address] 12/14/2011 00:00:00 [id number] [employer] erce [address] [facility],[place] [place], [place] [address] 04/08/2012 00:00:00 [id number] auto[employer] erce [address] [facility],[place] [address] [place], [place] [address] 10/21/2012 00:00:00 [id number] auto[employer] erce [address] [facility],[place] [address] [place], [place] [address] 01/15/2013 00:00:00 [id number] auto[employer] erce [address] [facility],[place] [address] [place], [place] [address] 01/23/2013 00:00:00 [id number] autoEComm erce [address] [facility] [address] [place], [place] [address] 05/15/2013 00:00:00 [id number] eSe Lau MD Main Office [address] [facility] [address] [place], [place] [address] 12/03/2013 10:35:27 12/03/2013 11:41:34 Sinusitis 52244255 Sounds allergic. Will try inhistamin e and call if symptoms worsen/per sist. Atrial fibrillation 60618464 DOing well post ablation. Following with cardiology . Essential hypertension 58733568 Fair control. Continue current regimen. Gout 46936201 Pure hypercholesterolemia 363001605 LDL at goal. Medication tolerated. Continue current regimen. Increased liver function 22160606 Possibly medication vs ETOH use related. WIll reassess and if persistent ly abnl will image and evaluate further. [id number] See Lau MD Main Office [address] [place], [place] [address] 02/04/2014 09:12:04 02/04/2014 09:57:32 Needs influenza immunization 849654604 Atrial fibrillation 30677230 Doing well post ablation, in normal rhythm. Following with cardiology . Pure hypercholesterolemia 385921934 LDL at goal based on risk factors. Will continue monitoring off of meds for now. Steatotic liver disease 894659828 ? if ETOH related vs meds vs NAFLD. Will monitor for now while working on liiting hepatic insults. Essential hypertension 32694855 Fair control. Continue current regimen. [id number] See Lau MD Main Office [address] [facility] [address] [place] [address] 06/03/2014 10:32:54 06/03/2014 11:56:38 Adult health examination 941069173 Immunizati on status and screening utd based on risk factors. Colon cancer screening utd. Regular dental and ophtho care advised as well as seatbelt and sunscreen use. Distracted driving discussed. Advance directives in place. Body mass index 25-29 - overweight 933149634 Increased liver function 35272999 Possibly medication vs ETOH use related. Given chronicity will ask GI for further eval if warranted. Atrial fibrillation 78499854 Doing well post ablation, in normal rhythm. Following with cardiology . Obstructiv e sleep apnea syndrome 54832474 Stable/wel l controlled . Rosacea 843210227 Stable, followed by derm. Essential hypertension 82658948 Fair control on recheck. Continue current regimen but if > 140/90 at f/u will titrate ACEI dose. [id number] See Lau MD Main Office [address] [facility] [address] [place] [address] 09/04/2014 10:38:49 09/04/2014 11:18:24 Essential hypertension 61063194 Will titrate ACEI dose to goal BP <140/90 Increased liver function 64004542 Possibly medication vs ETOH use related. Stable on recent labs, evaluation still underway. Will await completion . Sinusitis 28541700 Sounds allergic. Will try inhistamin e and call if symptoms worsen/per sist. Consider nasal steroid trial as well. [id number] See Lau MD Main Office [address] [facility] [address] [place] [address] 01/01/2015 09:44:49 01/01/2015 10:53:02 Essential hypertension 71020064 I10 Well controlled . Continue current regimen. Steatotic liver disease 461792088 K76.0 Regular ETOH use is likely significan t contributi ng factor. Give bilirubin elevation and higher LFTs will reimage and follow. Pt understand s potential consequenc es to continued ETOH use as well as to avoid other hepatotoxi c substances . Will immunize against Hep A/B. Requires c ourse of hepatitis B vaccination 509768894 Z28.3 Requires a hepatitis A vaccination 078741048 Z23 [id number] Wild Floyd MD Main Office [address] [facility] [address] [place] [address] 02/05/2015 15:52:13 02/05/2015 16:08:21 Requires course of hepatitis B vaccination 209919205 Z23 Requires a hepatitis A vaccination 915797143 Z23 [id number] See Lau MD Main Office [address] [place] [address] [place] [address] 06/11/2015 14:05:25 06/11/2015 15:14:47 Adult health examination 570482736 Z00.01 Immunizati on status and screening utd based on risk factors. Colon cancer screening utd. Regular dental and ophtho care advised as well as seatbelt and sunscreen use. Distracted driving discussed. Advance directives in place. Body mass index 25-29 - overweight 357376028 Z68.29 Increased liver function 96628957 R94.5 Presumed ETOH use related. Pt aware of potential consequenc es to continued use and is working on reducing intake. Will monitor. Atrial fibrillation 4943 6004 I48.91 Doing well post ablation, in normal rhythm. Following with cardiology . Essential hypertension 29148163 I10 Fair control. Continue current regimen but if > 140/90 at f/u will titrate ACEI dose. Varicella vaccination 68 656198 Z23 Proteinuria 87083946 R80 .9 Suspect that urine concentrat ion was a factor. Will recheck with next round of lab work. If persistent will evaluate further and titrate ACEI. [id number] See Lau MD Main Office [address] [address] [place] [address] 08/13/2015 13:47:03 08/13/2015 15:35:04 Requires a hepatitis A vaccination 841797106 Z23 Requires c ourse of hepatitis B vaccination 710217283 Z23 [id number] See Lau MD Main Office [address] [place] [address] [place] [address] 12/23/2015 11:24:55 12/23/2015 12:18:07 Essential hypertension 12791130 I10 Well controlled . Continue current regimen. Proteinuria 51573201 R80 .9 Suspect that urine concentrat ion was a factor. Will recheck with next round of lab work. If persistent will evaluate further, and consider increasing ACEI dose. . Steatotic liver disease K76.0 .Stable labs. Pt understand s risk of continued ETOH use. Needs infl uenza immunization 047815156 Z23 [id number] See Lau MD Main Office [address] [facility] [address] [place] [address] 06/23/2016 09:21:33 06/23/2016 10:29:24 Adult health examination 188364618 Z00.01 Immunizati on status and screening utd based on risk factors. Zostavax advised via local pharmacy. Colon cancer screening utd. Regular dental and ophtho care advised as well as seat belt and sunscreen use. Distracted driving discussed. Advance directives in place. Acute pharyngitis 208984 003 J02.9 Likely viral. will rule out strep. Treat if positive Atrial fibrillation 4943 6004 I48.91 Doing well post ablation, in normal rhythm. Following with cardiology . Body mass index 30+ - obesity 542595862 Z68.30 E66.9 Essential hypertension 09348895 I10 Pt will monitor after stopping Sudafed and URI resolves. Advised to call if persistent ly >140/90. Increased liver function 07769174 R94.5 Presumed ETOH use related. Pt aware of potential consequenc es to continued use and is working on reducing intake. Will monitor. [id number] See Lau MD Main Office [address] [facility] [address] [facility] [place] [address] 02/02/2017 15:25:07 02/02/2017 16:52:39 Atrial fibrillation 61512228 I48.91 Doing well post ablation, in normal rhythm. HAs f/u with Dr. Ramirez. Essential hypertension 80045911 I10 Not at goal. Will titrate ACEI and add diuretic. Needs infl uenza immunization 776630672 Z23 Steatotic liver disease 566350313 K76.0 Stable labs. Pt understand s potential nursing home health consequenc es of continued ETOH use. [id number] See Lau MD Main Office [address] [place] [address] 05/04/2017 15:21:40 05/04/2017 16:25:16 Essential hypertension 56094697 I10 Significan t reduction on diuretic. Will d/c BB and see if sexual side effects improve. Atrial fibrillation 4943 6004 I48.91 Doing well post ablation, in normal rhythm. Following with Dr. Ramirez. Primary er ectile dysfunction 501902033 N52.9 Likely BB related. Will check T level and consider ED medication depending on labs and symptom response off of BB. Pure hypercholesterolemia 037121797 E78.00 LDL at goal based on risk factors. Will continue monitoring off of meds for now. Steatotic liver disease 340232571 K76.0 Stable labs. Pt understand s potential nursing home health consequenc es of continued ETOH use. [id number] Santiago Garcia PA-C Main Office [address] [facility] [address] [place] [address] 09/27/2017 15:14:14 09/27/2017 16:45:43 Adult health examination 602989754 Z00.00 Varicella vaccination 68 626048 Z23 History of polyp of colon 975010318 Z86.010 pending see gi for repeat colon in a few months (10.18) Atrial fibrillation 4943 6004 I48.91 s/p ablation, cont f/u c card Essential hypertension 38861868 I10 stable, cont meds as dir Obstructiv e sleep apnea syndrome 10824083 G47.33 no tolerate cpap?? Rosacea 054851214 L71.9 cont f/u c derm, taken off of tetracycli ne Steatotic liver disease 625039763 K76.0 etoh and wt - levels stable - rec less etoh and lose wt - rec. 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 Gout 61445711 M10.9 no flares lately Hyperbilirubinemia 68904 006 E80.6 most likely d/t gilberts - will recheck in a few months Sciatica 75158839 M54.32 mild, s/p golf last month, getting better - rec step up HEP - if persists / gets worse, then f/u c us - consider xray vs PT - o/w pt has played golf since okay [id number] See Lau MD Main Office [address] [place] [address] 04/08/2018 10:14:10 04/08/2018 11:08:40 Pure hypercholesterolemia 000810031 E78.00 Will resume statin based on current CVD risk. Atrial fibrillation 4943 6004 I48.91 Doing well post ablation, in normal rhythm. Seen by Dr. Ramirez last week, will track down note. CHADS score needs to be monitored. Essential hypertension 30354825 I10 Needs infl uenza immunization 836635545 Z23 Gout 67124175 M10.9 Flares are infrequent . Will defer daily meds at thist point. Increased liver function 65974960 R94.5 Presumed ETOH use related. Pt aware of potential consequenc es to continued use and is working on reducing intake. Will monitor. 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 Pt understand s potential nursing home health consequenc es of continued ETOH use. Acute sinusitis 95264832 J01.90 Based on duration of symptoms and localized symptoms I suspect a bacterial process. Call inb/worse. [id number] See Lau MD Main Office [address] [facility] [address] [place] [address] 06/25/2018 10:01:33 06/25/2018 10:50:19 Essential hypertension 80274653 I10 Well controlled /at goal. Conitnue current regimen. Pure hypercholesterolemia 827765240 E78.00 Excellent response to low dose statin. Will continue current dose and monitor LFT's. Chronic sinusitis 275597 00 J32.9 Suspect an allergy component. WIll see if nasal steroid helps. Add antihistam ine and consider sinus imaging if persistent /worse. Increased liver function 16931900 R94.5 Presumed ETOH use related. Pt aware of potential consequenc es to continued use and is working on reducing intake. Will monitor. Thrombocyt openic disorder 210049210 D69.6 Possibly also related to ETOH use. WIll monitor and consider abd imaging if persistent /worse. [id number] See Lau MD Main Office [address] [facility] [address] [place] [place] [address] 10/21/2018 13:39:28 10/21/2018 14:52:11 Administration of viral vaccine 81519307 Z23 Varicella vaccination 68 393731 Z23 Essential hypertension 04144611 I10 Will d/c diuretic and continue lisinopril and metoprolol for now. Fatigue 39518727 R53.83 Possibly multifacto rial at this point. Rule out metabolic diseases vs hypotensio n vs liver disease. Increased liver function 52037556 R94.5 Presumed ETOH use related. Pt aware of potential consequenc es to continued use and is working on reducing intake. Will recheck u/s and refer back to GI depending on results and symptoms. Steatotic liver disease K76.0 Stable labs. Pt understand s potential intermediate card tender health consequenc es of continued ETOH use. Alcohol dependence 26483 003 F10.20 Not ready to stop. Resources provided. Macrocytic anemia 066751 05 D53.9 Nausea 546385129 R11.0 [id number] See Lau MD Main Office [address] [facility] [address] [place] [address] 11/22/2018 08:56:01 11/22/2018 10:56:49 Essential hypertension 54597660 I10 Well controlled off of diuretic. Will arrange f/u labs after next appt. Macrocytic anemia 072228 05 D53.9 Stable without indentifie d nutritiona l deficiency . Most likely secondary to ETOH use. Will d/c folic acid. Obstructiv e sleep apnea syndrome 37689933 G47.33 Symptomati genaro stable and better with reducing ETOH intake. Alcohol dependence 96406 003 F10.20 Tapering on his own. Steatotic liver disease 465676393 K76.0 Stable labs. Pt understand s potential nursing home health consequenc es of continued ETOH use, and is making an effort to change his habits. I will follow labs q4-6 months. [id number] See Lau MD Main Office [address] [facility] [address] [place] [address] 02/11/2019 10:50:36 02/11/2019 11:57:41 Adult health examination 101316756 Z00.00 Immunizati on status and screening utd based on risk factors. Shingrix advised via local pharmacy. Colon cancer screening utd. Regular dental and ophtho care advised as well as seat belt and sunscreen use. Distracted driving discussed. Advance directives in place. Needs infl uenza immunization 473058548 Z23 Varicella vaccination 68 821994 Z23 Obstructiv e sleep apnea syndrome 16956705 G47.33 Not using CPAP. Symptomati genaro stable and better with reducing ETOH intake. Gout 97620793 M10.9 Flares are infrequent . Will defer daily meds at thist point. Macrocytic anemia 198299 05 D53.9 Stable without indentifia ble nutritiona l deficiency . Most likely secondary to ETOH use. Will monitor off of folic acid. Body mass index 25-29 - overweight 447114900 E66.3 Z68.28 Gastroesop hageal reflux disease 493508734 K21.9 Well controlled on PPI without warning signs. Will monitor. Pure hypercholesterolemia 411017650 E78.00 Excellent response to low dose statin. Will continue current dose and monitor LFT's. [id number] See Lau MD Main Office [address] [place] [address] 05/14/2020 10:01:23 05/14/2020 11:14:19 Adult health examination 758725213 Z00.00 Immunizati on status updated. Will screen based on risk factors. Shingrix advised via local pharmacy. Colon cancer screening utd. Regular dental and ophtho care advised as well as seat belt and sunscreen use. Distracted driving discussed. Patient currently demonstrat es low risk for falls and no significan t cognitive decline. Advance directives in place. Thrombocyt openic disorder 994321063 D69.6 Possibly also related to ETOH use. WIll monitor and consider abd imaging if persistent /worse. Alcohol dependence 62409 003 F10.20 Tapering on his own, declines assistance . Understand s potential consequenc es to continued use hema in context of comorbidit ies. Administra tion of pneumococcal vaccine 00521980 Z23 Screening for malignant neoplasm of prostate 345983214 Z12.5 Paroxysmal atrial fibrillation 981578515 I48.0 Doing well post ablation, in normal rhythm. Planning to stop flecainide and undergo 30 day loop recorder to determine whether anticoagul ation is needed. Paresthesi a of lower extremity 281499904 R20.2 Likely related to alcohol. Will start with screening for metabolic conditions . Refer to neuro or for EMG depending on results. Pure hypercholesterolemia 949800244 E78.01 Excellent response to low dose statin. Will continue current dose and monitor LFT's. Gout 04883623 M10.9 Flares are infrequent . Will defer daily meds at thist point. 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 See if EMG corroborat es. Start thiamine and consider neurology referral depending on result. [id number] See Lau MD Main Office [address] [facility] [address] [place] [address] 09/21/2020 12:42:14 09/21/2020 13:34:14 Pure hypercholesterolemia 294201573 E78.01 Excellent response to low dose statin. Will continue current dose and monitor LFT's. Essential hypertension 58674599 I10 Well controlled off of diuretic. Will arrange f/u labs after next appt. Neuropathy 446984316 G62 .9 S1 left neuropathy on EMG. Improved with chiropract ic manipulati on. Toenail thickened 343205 000 R23.8 Unintentio nal weight loss 498073804 R63.4 Early satiety 671008105 R68.81 Swelling o f finger of right hand 3338743937 1661503 R60.0 [id number] See Lau MD Main Office [address] [facility] 207 [facility] [place] [address] 05/17/2021 12:58:12 05/17/2021 13:37:24 Adult health examination 478189484 Z00.00 Immunizati on status updated. Will screen based on risk factors. Shingrix advised via local pharmacy. Colon cancer screening utd. Regular dental and ophtho care advised as well as seat belt and sunscreen use. Distracted driving discussed. Patient currently demonstrat es low risk for falls and no significan t cognitive decline. Advance directives in place. Varicella vaccination 68 777302 Z23 Essential hypertension 19612217 I10 Not at goal. Likely related to weight gain. Will reassess in 6 weeks and titrate ACEI if >140/90 and labs look good. Pure hypercholesterolemia 479165910 E78.01 Excellent response to low dose statin. Will continue current dose and monitor LFT's. Sacral radiculopathy 128 068185 M54.18 Persistent issue. Pt would like to pursue further evaluation now. MRI order chip rivera, will see if gabapentin trial helps in the meantime. Screening for malignant neoplasm of colon 696737391 Z12.11 Nocturia 313375056 R35.1 Body mass index 25-29 - overweight 369195569 E66.3 Z68.27 Atrial fibrillation 4943 6004 I48.91 Doing well post ablation, in normal rhythm. Seen by Dr. Ramirez last week, will track down note. CHADS score needs to be monitored. Alcohol dependence 20336 003 F10.20 Tapering on his own, declines assistance . Understand s potential consequenc es to continued use hema in context of comorbidit ies. Macrocytic anemia 845006 05 D53.9 Stable without indentifia ble nutritiona l deficiency . Most likely secondary to ETOH use. Will monitor off of folic acid. [id number] See Lau MD Main Office [address] [place] [address] 07/27/2021 10:38:38 07/27/2021 10:57:45 [id number] See Lau MD Main Office [address] [place] [address] [place] [address] 08/04/2021 13:24:12 08/04/2021 14:25:58 Essential hypertension 59987718 I10 Well controlled , continue current regimen. Neuropathy 195256954 G62 .9 S1 left neuropathy on EMG. Improved with chiropract ic manipulati on. Gabapentin seems to be helping. will continue current dose. Gout 86973577 M10.9 Flares are infrequent . Will defer daily meds at thist point. Paroxysmal atrial fibrillation 166589812 I48.0 Had been doing well post ablation, in normal rhythm today. Prostate s pecific antigen above reference range 761984385 R97.20 Asymptoama tic. Will monitor trend and symptoms. If persistent /worse will consult urology. 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 Symptoms resolved. Has cardiology f/u next week. Nail changes 226391614 L 60.9 Will culture and discuss treatment options if positive for fungal elements. Options may be limited with his comorbidit ies. Steatotic liver disease 692684793 K76.0 Stable labs. Pt understand s potential intermediate card tender health consequenc es of continued ETOH use, and is making an effort to change his habits. I will follow labs q4-6 months. [id number] SABRINA BALTAZAR MD Main Office [address] [place] [address] 12/02/2021 12:59:29 12/02/2021 13:46:12 Removal of suture 93872032 Z48.02 - s/p fall 10 days needed for suture removal- ED note mentioned 12 boo however only 11 were removed- laceration is well healing, no erythema, warmth or discharge- area examined and not other boo noted- ordered x-ray of the skull to ensure staple is no longer present> pt mentioned he will have it done when he returns on his next visit on 12/08- can apply some bacitracin to the area as needed History of fall 79959500 9 Z91.81 - pt on eliquis for A fib> HAS-BLEED score of 2 {Risk was 4.1% in one validation study (Lip 2011) and 1.88 bleeds per 100 patient-ye ars in another validation study (Pisters 2010)}.> DIA-VASC score of 2 2 points {Stroke risk was 2.2% per year in >90,000 patients (the [place] Atrial Fibrillati on Cohort Study) and 2.9% risk of stroke/TIA /systemic embolism/} - will continue with the eliquis at this time because pt first fall however if patient continues to feel light-head ed and has increased fall then will consider speaking with cardiologi st to stop medication - pt does not like speaking about mechanism of which he feel. 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 Low blood pressure 83099 003 I95.9 - BP on arrival was 92/56 with MAP of 68- BP on repeat was 96/58 with MAP of 58- due to low BP will stop lisinopril 10mg and pt will follow up on 12/08 for follow-up with BP- pt encouraged to get BP machine and check readings at home- ED precaution s given- this could be contributi ng to patient light-head iness which is a risk factor for falling [id number] See Lau MD Main Office [address] [facility] [address] [place] [address] 12/08/2021 13:24:47 12/08/2021 14:16:40 Essential hypertension 99087385 I10 High today, will arrange RPM or pt to monitor BP at home and call in values. If it remains >130/90 will resume ACEI. Atrial fibrillation 4943 6004 I48.91 Currently it seems like thromboemb olic risk outweighs bleeding complicati ons. If he has another fall ot if cardiology thinks otherwise will reconsider . Needs infl uenza immunization 040416643 Z23 Gout 76324937 M10.9 Tolerating allopurino l well. Will titrate dose to target goal UA level <6. Alcohol dependence 50158 003 F10.20 Tapering on his own, declines assistance . Understand s potential consequenc es to continued use hema in context of comorbidit ies. [id number] See Lau MD Main Office [address] [facility] [address] [place] [address] 03/14/2022 13:24:01 03/14/2022 14:22:28 Essential hypertension 37486053 I10 High today, will arrange RPM or pt to monitor BP at home and call in values. If it remains >130/90 will resume ACEI. Atrial fibrillation 4943 6004 I48.91 Currently it seems like thromboemb olic risk outweighs bleeding complicati ons. If he has another fall ot if cardiology thinks otherwise will reconsider . Gout 15318583 M10.9 Tolerating allopurino l well. Will titrate dose to target goal UA level <6. Increased liver function 33032223 R94.5 Presumed ETOH use related. Pt aware of potential consequenc es to continued use and is working on reducing intake. Will recheck u/s and refer back to GI depending on results and symptoms. Prostate s pecific antigen above reference range 720386008 R97.20 Awaiting appt for TRUSB with urology Pure hypercholesterolemia 915870898 E78.01 Excellent response to low dose statin. Will continue current dose and monitor LFT's. Thrombocyt openic disorder 128618774 D69.6 Possibly also related to ETOH use. WIll monitor and consider abd imaging if persistent /worse. Alcohol dependence 89663 003 F10.20 Tapering on his own, declines assistance . Understand s potential consequenc es to continued use hema in context of comorbidit ies. [id number] See Lau MD Telehealt h [address] [facility] [facility] [address] [place] [address] 05/19/2022 10:35:02 05/23/2022 12:21:01 Carcinoma of prostate 755997461 C61 Has appt with radiation oncology at [facility]. I advised that based on my understand ing this course of therapy is reasonable . My experience has been that oncology typically agrees with the urology Alcohol dependence 38269 003 F10.288 Tapering on his own, declines assistance . Understand s potential consequenc es to continued use hema in context of comorbidit ies. Discussed naltrexone and he will think about it between now and his follow up appt next week. Thrombocyt openic disorder 957823198 D69.6 Likely related to ETOH use. Has labs pending, will go before next appt. [id number] See Lau MD Main Office [address] [facility] [address] [place] [address] 05/23/2022 14:10:47 05/23/2022 15:18:27 Adult health examination 721653925 Z00.00 Shingrix, PCV20, and bivalent COVID 19 vaccine advised via local pharmacy. Screening utd based on risk factors. Colon cancer screening utd. Regular dental and ophtho care advised as well as seat belt and sunscreen use. Distracted driving discussed. Patient currently demonstrat es low risk for falls and no significan t cognitive decline. Advance directives in place. Atrial fibrillation 4943 6004 I48.91 Currently it seems like thromboemb olic risk outweighs bleeding complicati ons. If he has another fall ot if cardiology thinks otherwise will reconsider . Alcohol dependence 04695 003 F10.288 Tapering on his own, declines assistance . Understand s potential consequenc es to continued use hema in context of comorbidit ies. Wants to try naltrexone , common/ser ious potential side effects discussed. No recent opiate use. Carcinoma of prostate 25 9257045 C61 Has appt with radiation oncology at [facility]. I advised that based on my understand ing this course of therapy is reasonable . Await correspond ence. Gastroesop hageal reflux disease 075142967 K21.9 Well controlled on PPI without warning signs. Will monitor. Obstructiv e sleep apnea syndrome 58889454 G47.33 Not using CPAP. Symptomati genaro stable and better with reducing ETOH intake. Body mass index 25-29 - overweight 405784911 E66.3 Z68.27 Administra tion of pneumococcal vaccine 28298233 Z23 Gout 54597240 M10.9 Tolerating allopurino l well. Will titrate dose to target goal UA level <6. Advised to use indomethac in sparingly and to stop immediatel y with any GI symptoms. [id number] See Lau MD Main Office [address] [facility] [address] [place] [address] 07/24/2022 10:40:21 07/24/2022 11:49:26 Alcohol dependence 61082934 F10.288 Tapering on his own, declines assistance . Understand s potential consequenc es to continued use hema in context of comorbidit ies. Tolerating naltrexone Wants to try naltrexone , common/ser ious potential side effects discussed. No recent opiate use. Carcinoma of prostate 25 6147160 C61 Being scheduled for radiation/ seed therapy at [facility]. Sacral radiculopathy 128 898012 M54.18 Persistent /recurrent issue in context of new prostate cancer diagnosis and no prior imaging. Pt willing to pursue further evaluation now. MRI order reinvigora miguel, will see if short steroid course helps for possible arthritic/ disc disease component. [id number] See Lau MD Main Office [address] [place] [address] 10/19/2022 09:15:04 10/19/2022 10:14:57 Essential hypertension 74953477 I10 Remains elevated. Will add amlodipine to regimen and titrate accordingl y. Due for routine labs. Spinal issa nosis of lumbar region 63194350 M48.061 Getting relief with chiropract ic therapy. Will defer further eval for now. Bilateral cataracts 9572 2003 H26.9 scheduled for removal with Dr. Napoles in Dec. Unintentio nal weight loss 973770746 R63.4 Monitor closely with comorbidit ies. If this continues or labs abnormal will need to consider imaging. [id number] See Lau MD Main Office [address] [facility] [address] [place] [address] 02/08/2023 10:09:09 02/08/2023 11:09:14 Essential hypertension 12253039 I10 Well controlled on amlodipine . Will continue current regimen. Influenza vaccine needed 7159052082 106 Z23 Macrocytic anemia 837631 05 D53.9 Stable without identifiab le nutritiona l deficiency . Most likely secondary to ETOH use. Will monitor off of folic acid. Carcinoma of prostate 25 2609209 C61 Has completed radiation, following with Dr. Marquez. Increased liver function 89857979 R94.5 Presumed ETOH use related. Pt aware of potential consequenc es to continued use and is working on reducing intake. Will recheck u/s and refer back to GI depending on results and symptoms. Acute sinusitis 47657266 J01.90 Based on duration of symptoms and localized symptoms I suspect a bacterial process. Call inb/worse. [id number] Wild Floyd MD Main Office [address] [facility] [address] [place] [address] 07/26/2023 10:09:42 07/26/2023 10:42:53 Loose stool 081631959 R19.5 -reports of having x3 episodes of diarrhea in the past month-anju es of any changes to diet, medication s, or recent viral illnesses- notes that he has not experience d an episode in over a week-denie s of any blood in the stool, pain with defecation , abdominal pain, fever, chills, fatigue-PE is unremarkab le-pt requests lab work; will check cbc and cmp Congestion of throat 102 252458 R09.89 x1-2 month of congestion only in the morning when first waking up; no symptoms throughout the day-no fever, chills, fatigue, dizziness, chest pain, or sob-sleeps with a fan in the room, in direction of the bed-PE; unremarkab le-discuss ed with pt to trial a humidifier in the room and conservati ve measuremen ts-give hx and duration; likely related to environmen amrcus than viral [id number] See Lau MD Main Office [address] [facility] [address] [place] [address] 10/02/2023 14:05:12 10/02/2023 15:10:58 Adult health examination 576305730 Z00.00 Shingrix #2, PCV20, COVID 19 booster and flu vaccine (when available) advised via local pharmacy. Screening utd based on risk factors. Colon cancer screening due. Regular dental and ophtho care advised as well as seat belt and sunscreen use. Distracted driving discussed. Patient currently demonstrat es low risk for falls and no significan t cognitive decline. Advance directives in place. Screening for malignant neoplasm of colon 570560681 Z12.11 Due for colonoscop y. Pt will call Dr. Austin to arrange. Advised to call with any problems. Pyuria 0480238 R82.81 Alcohol dependence 83583 003 F10.288 Tapering on his own, declines assistance . Understand s potential consequenc es to continued use hema in context of comorbidit ies. Wants to try naltrexone , common/ser ious potential side effects discussed. No recent opiate use. Carcinoma of prostate 25 6104505 C61 Has appt with radiation oncology at [facility]. I advised that based on my understand ing this course of therapy is reasonable . Await correspond ence. Gastroesop hageal reflux disease 722912900 K21.9 Well controlled on PPI without warning signs. Will monitor. Obstructiv e sleep apnea syndrome 88528194 G47.33 Not using CPAP. Symptomati genaro stable and better with reducing ETOH intake. Body mass index 25-29 - overweight 855278320 E66.3 Z68.25 Administra tion of pneumococcal vaccine 10532916 Z23 Gout 48843991 M10.9 Tolerating allopurino l well. Will titrate dose to target goal UA level <6. Advised to use indomethac in sparingly and to stop immediatel y with any GI symptoms. Rosacea 806857587 L71.9 Stable, followed by derm. Thrombocyt openic disorder 637322529 D69.6 Likely related to ETOH use. Has labs pending, will go before next appt. Moderate a lcohol dependence 504215973 F10.20 Paroxysmal atrial fibrillation 255725792 I48.0 Had been doing well post ablation, in normal rhythm today. Essential hypertension 83665514 I10 Well controlled on amlodipine . Will continue current regimen. At [facility] risk for falls 337587546 Z91.81 Would like to pursue PT for his balance issues which are likely secondary to neuropathy /ETOH. Pure hypercholesterolemia 423122415 E78.01 Excellent response to low dose statin. Will continue current dose and monitor LFT's. Advance di rective discussed with patient 381873777 Z71.89 MOLST form provided, and terminolog y explained. Patient will review with her HCP and return for finalizati on at follow up. [id number] See Lau MD Main Office [address] [facility] [address] [facility] [address] [place] [address] 02/04/2024 09:55:16 02/04/2024 10:50:16 Pure hypercholesterolemia 772180925 E78.01 Excellent response to low dose statin. Will reassess and adjust current dose accordingl y. Essential hypertension 93612137 I10 Not at goal, will increase amlodipine if >140/90 at f/u. Paroxysmal atrial fibrillation 436884291 I48.0 Had been doing well post ablation, audibly in normal rhythm today. Influenza vaccine needed 0433388709 106 Z23 65 YEARS AND OLDER Increased liver function 65794387 R94.5 ETOH use related. Pt aware of potential consequenc es to continued use and is working on reducing intake. Will recheck u/s and refer back to GI depending on results and symptoms. [id number] See Lau MD Main Office [address] [facility] [address] [facility] [address] [place] [address] 04/07/2024 10:37:48 04/07/2024 11:42:41 Pure hypercholesterolemia 632895978 E78.01 Excellent response to low dose statin. Will monitor and adjust dose accordingl y. Essential hypertension 10415978 I10 Well controlled , continue current dosing. Proteinuria 06009304 R80 .9 Suspect that urine concentrat ion was a factor. Will recheck with next round of lab work. If persistent will evaluate further, and consider resuming low dose ACEI/ARB Increased liver function 36305288 R94.5 ETOH use related. Pt aware of potential consequenc es to continued use and is working on reducing intake. Will recheck u/s and refer back to GI depending on results and symptoms. Macrocytic anemia 794337 05 D53.9 Stable without identifiab le nutritiona l deficiency . Most likely secondary to ETOH use. Will monitor off of folic acid. [id number] See Lau MD Main Office [address] [facility] [address] [place] [address] 11/24/2024 10:53:20 11/24/2024 12:02:04 Adult health examination 300739709 Z00.00 Shingrix #2, PCV20, COVID 19 booster and flu vaccine (when available) advised via local pharmacy. Screening utd based on risk factors. Colon cancer screening due. Regular dental and ophtho care advised as well as seat belt and sunscreen use. Distracted driving discussed. Patient currently demonstrat es low risk for falls and no significan t cognitive decline. Advance directives in place. Pyuria 4918838 R82.81 Asymptomat ic, likely related to radiation therpay for prostate CA. Will monitor for infection. Alcohol dependence 00165 003 F10.288 Tapering on his own, declines assistance . Understand s potential consequenc es to continued use hema in context of comorbidit ies. Declines refill on naltrexone . Carcinoma of prostate [address] Guerrero, next apppt in January. Gastroesop hageal reflux disease 758417516 K21.9 Well controlled on PPI without warning signs. Will monitor. Obstructiv e sleep apnea syndrome 27131140 G47.33 Not using CPAP. Symptomati genaro stable. Gout 16459231 M10.9 Tolerating allopurino l well. Will titrate dose to target goal UA level <6. Advised to use indomethac in sparingly and to stop immediatel y with any GI symptoms. Thrombocyt openic disorder 513035184 D69.6 Likely related to ETOH use. Has been stable, will monitor. Paroxysmal atrial fibrillation 402328215 I48.0 Had been doing well post ablation, in normal rhythm today. On DOAC and BB. Essential hypertension 44272382 I10 Not well controlled on amlodipine . Will monitor and if >130/90 at f/u titrate dose vs add spironolac tone. Pure hypercholesterolemia 839684255 E78.01 Excellent response to low dose statin. Will continue current dose and monitor LFT's. Reassess before next appt. Moderate a lcohol dependence 453167878 F10.20 Screening for malignant neoplasm of colon 005412638 Z12.11 Had colonoscop y with #2 adenomas but no f/u conveyed. Administra tion of pneumococcal vaccine 95800462 Z23 Early cirrhosis 76568671 6 K74.60 Was seen by GI but no documentat ion regarding this diagnosis or recommende d follow up. Will request guidance again in light of recent labs. [id number] See Lau MD Main Office [address] [facility] [address] [place] [address] 02/09/2025 13:51:37 02/09/2025 14:35:07 Hiccoughs 88243806 R06.6 45176 - Patient presenting with 4 days of [...] ing of plan of care. Alcohol dependence 73392 003 F10.288 - Patient reports no alcohol [...] next follow up in March. Early cirrhosis 33125841 6 K74.60 Pt seen by GI in 01/2024 but cirrhosis was not addressed. Will generate new referral to consider EGD. Health Concerns Section Related Observation LastModified by Organization Detai ls LastModified Time None Recorded Concern Status LastModified by Organization Details LastModified Time None Recorded Advance Directives Directive Y: Payers Insurance Date Sequence Insurance Name Policy Number Policy Torres Covered Member ID Torres Member ID Guarantor Name 02/09/2025 2 [facility] - PLAN 1 (MEDICARE SUPPLEMENT) [id number] Silver Waters [id number] Silver Waters 02/09/2025 1 [place] [employer] Silver Waters [id number] Silver Waters 10/21/2018 1 GRACE (PPO) [id number] Lani Waters [id number] Silver Waters 02/09/2025 2 [facility] - PLAN 1 (MEDICARE SUPPLEMENT) [id number] Silver Waters [id number] Silver Waters 02/12/2020 1 [facility] [place] [place] [id number] Irma Waters [id number] Silver Waters 11/30/2016 1 [facility] [place]AN [id number] Irma Waters [id number] Silver Waters 06/05/2020 2 UNSPECIFIED REMIT PAYOR Silver Waters Notes Date Note Type Note Provider Name and Address Organization Details Recorded Time 10/02/2023 text/html Medicare Annual Wellness VisitReported by PatientSocial/Behavior al HistoryFor diet and nutrition, patient reportshealthy diet. For fracture risk, patient reportsno history of fractures,no recent explained fracture,no sudden unexplained fractures, andno previous musculoskeletal injuries. For physical activity, patient reportsexercises on a regular basis,recent increase in physical activity, andgood physical condition.Mental Status:For depression risk, patient reportsnever feels sad, empty, or tearful,no loss of interest in activities,no significant changes in weight,no sleep disturbances or insomnia,no loss of energy,no feelings of worthlessness or guilt,no thoughts of suicide,no history of depression, andno history of mood disorders. For orientation, patient reportsno disorientation to time,no disorientation to date, andno disorientation to place. For concentration and memory, patient reportsno decreased concentrating ability,no memory lapses or loss, anddoes not forget words. For speech/motor difficulties, patient reportsno speech difficulties,no difficulty expressing formulated concepts,no difficulty with fine manipulative tasks,no difficulty writing/copying,no slowed reaction time, anddoes not knock things over when trying to pick them up.Functional AbilityFor hearing, patient reportsno loss of hearing. For vision, patient reportsno vision problems. For activities of daily living, patient reportsable to bathe with limited or no assistance,able to contol urination and bowels,able to dress with limited or no assistance,able to feed self with limited or no assistance,able to get out of chair or bed with limited or no assistance,able to groom with limited or no assistance, andable to toilet with limited or no assistance. For instrumental activities of daily living, patient reportsable to do house work with limited or no assistance,able to grocery shop with limited or no assistance,able to manage medications with limited or no assistance,able to manage money with limited or no assistance,able to prepare meals with limited or no assistance, andable to use the phone with limited or no assistance. For falls risk assessment, patient reportsno frequent falls while walking,no fall in the past year,no fall since last visit, andno dizziness/vertigo. For home safety, patient reportsno unsafe pranav hazzards,working smoke/co detectors,use of seatbelts,no fire arms, andhas hand bars in the bathroom/shower.ROS as noted in the HPI Angelina Bocanegra christopher, [facility] 10/15/2023 14:37:33 02/04/2024 text/html Hypertension F/UReported by PatientHPIFor associated symptoms, patient reportsno dizziness,no lightheadedness,no chest pain,no shortness of breath,no palpitations, andno edema(fatigue). For lifestyle, patient reportsregular exerciseandlimiting/av oiding salt. For medications, patient reportstaking medications as directedandno side effects from medication.tolerating addition of amlodipine, had a cain breakfast sandwich this AM. HyperlipidemiaReported by PatientHPIFor type of hyperlipidemia, patient reportshypercholestero lemia. For duration, patient reportschronic. For risk factors, patient reportshypertension. For current therapy, patient reportscurrently taking: (atorvastain),last cholesterol level: (154),last ldl level: (80),last triglyceride level: (57), andlast hdl level: (63). For compliance, patient reportscompliant,compl iant with diet, andexercises. For complications, patient reportsno coronary artery disease,no peripheral artery disease, andno cardiovascular disease. Abnormal Liver TestsReported by PatientHPIFor severity, patient reportsast:33,alt:33,t otal bilirubin: 1.5, andalkaline phosphatase: 93. For duration, patient reportspresent for 1-5 yearsandconstant. For onset/timing, patient reportsabrupt onset. For associated symptoms, patient reportsno jaundiceandno ruq abdominal pain.Last CT (09/2020) shows fatty liver, no evidence of cirrhosis. See Lau MD [address] [address], [place], [address], [facility] 02/27/2024 20:44:03 04/07/2024 text/html Hypertension F/UReported by PatientHPIFor associated symptoms, patient reportsno dizziness,no lightheadedness,no chest pain,no shortness of breath,no palpitations, andno edema(fatigue). For lifestyle, patient reportsregular exerciseandlimiting/av oiding salt. For medications, patient reportstaking medications as directedandno side effects from medication.tolerating amlodipine HyperlipidemiaReported by PatientHPIFor type of hyperlipidemia, patient reportshypercholestero lemia. For duration, patient reportschronic. For risk factors, patient reportshypertension. For current therapy, patient reportscurrently taking: (atorvastatin),last cholesterol level: (153),last ldl level: (84),last triglyceride level: (82), andlast hdl level: (53). For compliance, patient reportscompliant,compl iant with diet, andexercises. For complications, patient reportsno coronary artery disease,no peripheral artery disease, andno cardiovascular disease. Abnormal Liver TestsReported by PatientHPIFor severity, patient reportsast:76,alt:31,t otal bilirubin: 1.7, andalkaline phosphatase: 91. For duration, patient reportspresent for 1-5 yearsandconstant. For onset/timing, patient reportsabrupt onset. For associated symptoms, patient reportsno jaundiceandno ruq abdominal pain.Last CT (09/2020) shows fatty liver, no evidence of cirrhosis. See Lau MD [address], [address], [facility] 04/18/2024 07:26:32 11/24/2024 text/html Medicare Annual Wellness VisitReported by PatientSocial/Behavior al HistoryFor diet and nutrition, patient reportshealthy diet. For fracture risk, patient reportsno history of fractures,no recent explained fracture,no sudden unexplained fractures, andno previous musculoskeletal injuries. For physical activity, patient reportsexercises on a regular basis,recent increase in physical activity, andgood physical condition.Mental Status:For depression risk, patient reportsnever feels sad, empty, or tearful,no loss of interest in activities,no significant changes in weight,no sleep disturbances or insomnia,no loss of energy,no feelings of worthlessness or guilt,no thoughts of suicide,no history of depression, andno history of mood disorders. For orientation, patient reportsno disorientation to time,no disorientation to date, andno disorientation to place. For concentration and memory, patient reportsno decreased concentrating ability,no memory lapses or loss, anddoes not forget words. For speech/motor difficulties, patient reportsno speech difficulties,no difficulty expressing formulated concepts,no difficulty with fine manipulative tasks,no difficulty writing/copying,no slowed reaction time, anddoes not knock things over when trying to pick them up.Functional AbilityFor hearing, patient reportsno loss of hearing. For vision, patient reportsno vision problems. For activities of daily living, patient reportsable to bathe with limited or no assistance,able to contol urination and bowels,able to dress with limited or no assistance,able to feed self with limited or no assistance,able to get out of chair or bed with limited or no assistance,able to groom with limited or no assistance, andable to toilet with limited or no assistance. For instrumental activities of daily living, patient reportsable to do house work with limited or no assistance,able to grocery shop with limited or no assistance,able to manage medications with limited or no assistance,able to manage money with limited or no assistance,able to prepare meals with limited or no assistance, andable to use the phone with limited or no assistance. For falls risk assessment, patient reportsno frequent falls while walking,no fall in the past year,no fall since last visit, andno dizziness/vertigo. For home safety, patient reportsno unsafe pranav hazzards,working smoke/co detectors,use of seatbelts,no fire arms, andhas hand bars in the bathroom/shower.ROS as noted in the HPI See Lau MD [address] [address], [place], [address], [facility] 11/25/2024 06:53:04 02/09/2025 text/html ROS as noted in the HPI Silver is a 69 year old M with PMH of AUD, HTN, first degree AV block, Afib, hypercholesterolemia, GERD, cirrhosis, congenital hydrocele, prostate CA, OA, [...] increased fatigue, AMS, weakness, ataxia, changes in vision/hearing/speech- no shortness of breath, coughing, wheezing, chest pain, jaw pain, arm pain Persistence of symptoms during sleep, or if they stop during sleep and recur upon waking up.- Hiccups at night while sleeping per , and wakes up with hiccups Recent acute illnesses, including thoracic or abdominal surgery or general anesthesia.- No recent infections or surgeries See Lau MD [address] [address], [place], [address], [facility] 02/12/2025 07:21:12
[2025-03-06 09:10] LABS: Alanine Aminotransferase 13 U/L (0-40); Albumin Level 3.7 g/dL (3.5-5.0); Alkaline Phosphatase 129 U/L (39-117); Aspartate Amino Transferase 68 U/L (5-37); Ferritin 345 ng/mL (20-250); Iron 68 mcg/dL (45-160); Percent Iron Saturation 36 % (15-50); Total Iron Binding Capacity 191 mcg/dL (228-428); Total Protein 7.6 g/dL (6.5-8.0); Unsaturated Iron Binding 123 ug/dL
[2025-03-06 09:15] LABS: HBS Num1 0.00 mIU/mL (0-7.99); HBc Num1 0.34 S/CO (0.00-0.79); HBsAGNum1 0.38 S/CO (0.00-0.99); Hepatitis A Antibody IgM 0.19 Index (0-0.79); Hepatitis B Surface Antigen Negative (Negative); ~HepC Num1 0.11 S/CO (0.00-0.79); ~Hepatitis A Antibody IgM Nonreactive (Nonreactive); ~Hepatitis B Surface Antibody NONREACTIVE (Nonreactive); ~Hepatitis C Antibody Nonreactive (Nonreactive)
[2025-03-09 13:43] LABS: Anti Nuclear Antibody Screen NEGATIVE (NEGATIVE)
== END 2025-03-06 07:03 | disposition home or self-care (01) ==
LOC: HO.LAB 07:02
PROVIDERS: PCP Pediatrics; Visit Provider Internal Medicine Gastroenterology
DX: Z01.84 Encounter for antibody response examination (principal); R79.89 Other specified abnormal findings of blood chemistry
CPT/HCPCS: 36415; 80076; 81596; 82728; 83540; 86015; 86038; 86381; 86704; 86706; 86709; 86803; 87340

== ENCOUNTER 2025-03-20 13:54 | Outpatient (REF) | payer MEDICARE, OTHER, SELFPAY ==
--- OUTSIDE RECORDS SUMMARY | 2024-02-19 08:00 | XMS_ITS ---
Author Organization [facility] Address [address] [place] [address] Care Team Providers Care Recruitment Director Name Role Phone Jack CARR, See Primary Care Provider Unavail John Mendiola Jr Unavailable REASON FOR VISIT screening Encounters Encounter Location Date Provider Diagnosis [facility] [place] [facility] [address] [place] [phone] 02/19/2024 John Austin Jr Colon cancer screening Z12.11 ; Personal history of colonic polyps Z86.0100 and Colon polyps K63.5 Assessments Encounter Date Diagnosis (ICD Code) Assessment Notes Treatment Notes Treatment Clinical Notes Section Notes 02/19/2024 Colon cancer screening (ICD-10 - Z12.11) 02/19/2024 Personal history of colonic polyps (ICD-10 - Z86.0100) 02/19/2024 Colon polyps (ICD-10 - K63.5) Plan Of Treatment Next Appt Details Provider Name:John matthew Jr, 04/08/2025 11:20:00 AM, [address], [address], [place], [address], Progress Notes * ONIEL BOYER JrDOB:1955 (69 yo M)Acc No.[id number]:02/19/2024 COLON WITH MAC Patient: John ONIEL FOX Jr Provider: Naseem Austin MD :1955 A ge:68 Y S ex:Male Date:02/19/2024 Address: [place], [id number] Pcp:See Santiago MD Subjective: * Chief Complaints: * S creening Assessment: * Assessment: 1. C olon cancer screening - Z12.11 (Primary) 2 . P ersonal history of colonic polyps - Z86.0100 3 . C olon polyps - K63.5 Plan: * Procedure Codes: G 0105 COLOREC CANCR SCR; COLNSCPY HI [id number] LESION REMOVAL [id number] COLONOSCOPY AND BIOPSY, Modifiers: 59 0529F INTRVL 3+YRS PTS CLNSCP DOCD Billing Information: * Procedure Codes: G0105 COLOREC CANCR SCR; COLNSCPY HI RISK. 97233 LESION REMOVAL COLONOSCOPY. 79274 COLONOSCOPY AND BIOPSY. Modifiers: 59 0529F INTRVL 3+YRS PTS CLNSCP DOCD. * The named appointment provid er may or may not be the originator of this progress note, and it is not deemed complete until electronically signed by the appointment provider. Sign off status: Pending * Provider: Naseem Austin MD Date: 04/20/2023 Generated for Jing rangel/Walt/Haiitting on: 05/21/2024 03:34 PM EST
--- NOTE | ~2025-03-20 | US_ITS ---
EXAMINATION: US COMPLETE ABDOMEN WITH LIVER ELASTOGRAPHY CLINICAL INFORMATION: Elevated LFTs. COMPARISON: None available. TECHNIQUE: Real-time imaging of the abdominal viscera. Noninvasive ultrasound liver fibrosis assessment is performed using Yasmani ElastPQ point quantification shear wave elastography (pSWE) with a C5-2 MHz transducer. Multiple elastography samples are obtained. FINDINGS: PANCREAS: The visualized pancreatic head and body are normal in appearance. The remainder of the pancreas is obscured from visualization by the overlying bowel gas. ABDOMINAL AORTA: No aortic aneurysm is seen. INFERIOR VENA CAVA: Visualized portions are normal. LIVER: Liver demonstrates normal size, normal contour, and diffusely increased parenchymal echogenicity. No focal lesion or intrahepatic biliary dilatation. The right lobe measures 15.6 cm in length. The left lobe measures 11.8 cm in length. Portal flow is towards the liver (hepatopetal). Shear wave liver elastography median stiffness is 1.42 m/s (reference: normal median stiffness is 1.3 m/s or less). IQR/median stiffness to assess sampling precision is 0.15 (reference: good quality data set is IQR/median stiffness of 0.15 or less). This represents a quality data set. GALLBLADDER: The gallbladder is well distended. There is a mural-based echo without shadowing measuring 4 x 4 x 5 mm, consistent with a polyp or possibly a sludge ball. There is some echogenic biliary sludge present. No wall thickness or pericholecystic fluid. Negative sonographic Avilez's sign. COMMON BILE DUCT: Normal in caliber measuring 0.5 cm in diameter. RIGHT KIDNEY: No hydronephrosis. No renal calculi or focal parenchymal lesions. The kidney measures 11.4 cm in maximum dimension. LEFT KIDNEY: No hydronephrosis. No renal calculi or focal parenchymal lesions. The kidney measures 11.1 cm in maximum dimension. SPLEEN: Unremarkable. The spleen measures 13.2. cm in maximum dimension. FREE FLUID: There is trace perihepatic and perisplenic ascites present. US/US abdomen comp w elastography IMPRESSION: 1. Mildly increased hepatic echogenicity in keeping with steatosis. No focal hepatic lesion or intrahepatic biliary dilatation. 2. Liver elastography: Measurements are consistent with a high probability of normal liver stiffness. 3. Small amount of gallbladder sludge present. No stones. There is a non-shadowing 4 x 4 x 5 mm echogenic focus which may represent a polyp versus a sludge ball. 4. There is trace ascites abutting the liver and spleen. This is of uncertain etiology. 5. Remainder of the examination is normal. REFERENCE: Society of Radiologists in Ultrasound Liver Stiffness Thresholds (2019): LIVER STIFFNESS THRESHOLDS: *Liver Stiffness equal or less than 1.3 m/s: High probability of being normal. *Liver Stiffness less than 1.7 m/s: In the absence of other known clinical signs, rules out compensated advanced chronic liver disease. *Liver Stiffness 1.7-2.1 m/s: Suggestive of compensated advanced chronic liver disease but need further test for confirmation. *Liver Stiffness over 2.1 m/s: Rules in compensated advanced chronic liver disease. *Liver Stiffness over 2.4 m/s: Suggestive of clinically significant portal hypertension. QUALITY OF DATA SET: *IQR/Median value equal or less than 0.15 implies a quality data set. *IQR/Median value over 0.15 implies a poor quality data set. SIGNIFICANT CHANGE FROM PRIOR EXAM: Significant change if liver stiffness measurement is 10% or greater from prior exam. OTHER CONSIDERATIONS: The stage of liver fibrosis may be overestimated in the setting of acute hepatitis, liver inflammation, elevated liver function tests, hepatic vascular congestion, obstructive cholestasis, non-fasting state, and infiltrative diseases such as amyloidosis and lymphoma. In some patients with NAFLD, the liver stiffness thresholds for compensated advanced chronic liver disease may be lower. In causes other than viral hepatitis and NAFLD, liver stiffness thresholds are not well established. Electronically signed by: Victor Hugo Gilman MD 03/20/2025 03:30 PM [facility]
--- OUTSIDE RECORDS SUMMARY | 2025-03-20 15:34 | XMS_ITS | Patient Health Record ---
Author Organization [facility] Address [address] [place] [address] Care Team Providers Care Kier Pleater Name Role Phone See Santiago MD Primary Care Provider Unavail able Kade Iniguez Unavailable [phone] Reason For Referral No Information Medications Medication SIG (Take, Route, Fr equency, Duration) Notes Start Date End Date Status Metoprolol Succinate ER Active Tetracycline HCl Act ina Lisinopril Active Colcrys 0.6 MG 1 tablet Orally Once a day; Duration: 30 day(s) 01/06/2014 Active Flecainide Acetate A ctive Social History Tobacco Use: Social History Observation Description Date Details (start date - stop date) Never Smoker NA - NA Tobacco Use/Smoking Question Answer Notes Are you a: nonsmoker Additional Findings: Tobacco Non-User Current no n-smoker Alcohol Screen Question Answer Notes Did you have a drink containing alcohol in the p ast year? Yes Points 0 Interpretation Negative Tobacco use other than smoking: Question Answer Notes Are you an other tobacco user? No Problems Problem Type SNOMED Code ICD Code Onset Dates Problem Status W/U Status Risk Notes Problem Acquired hallux valgus (91485405) Hallux valgus (acquired), left foot (M20.12) Active confirmed Problem Acquired hallux valgus (48113926) Hallux valgus (acquired), right foot (M20.11) Active confirmed Problem Primary gout (69532632) Idiopathic gout, multiple sites (M10.09) Active confirmed Problem Raynaud's disease (251843561) Raynaud's disease without gangrene (I73.00) Active confirmed Plan Of Treatment Pending Test Test Name Order Date *Uric Acid, Serum 01/06/2014 *Sedimentation Rate-Trentergren 4 X ray : Foot, left 3V 01/06/2014 Insurance Providers Payer Name Payer Address Payer Phone Subscriber Number Group Number Insured Name Patient Relationship to Insured Coverage Start Date Coverage End Date [facility] [address] [facility] addie, [place] [id number] Silver Waters Self - patient is the insured Medical (General) History Medical History History ICD Code Atrial fibrillation Chicken pox Gout Heart disease Measles Mumps Pain in Limb 729.5 Pain in Limb 719.97 Arthritis - Degenerative 735.0 Hallux Valgus 735.8 Hallux Limitus 274.9 Gout Surgical History Surgery Date(Month/Year) Ablation 10/09/12 & 12/04/12
--- OUTSIDE RECORDS SUMMARY | 2025-03-20 15:35 | XMS_ITS | Patient Health Record ---
Author Organization [facility] Address [address] [place] [address] Care Team Providers Care Disbursing Officer Name Role Phone Jack CARR, See Primary Care Provider Unavail able Norman Toribio John Unavailable Allergies No Known Allergies Results Component Value Reference Range Flag Notes Liver Panel Reviewed date:03/09/2025 08:59:57 AM Interpretation: Performing Lab:[facility], [address] [place] [phone] Notes/Report: Bilirubin Total 2.4 0.0-1.0 mg/dL H Slight Icterus. Bilirubin Direct 1.2 0.0-0.5 mg/dL H Sligh t Icterus. Aspartate Amino Transferase 68 5-37 U/L H Alanine Aminotransferase 13 0-40 U/L N Total Protein 7.6 6.5-8.0 g/dL N Albumin Level 3.7 3.5-5.0 g/dL N Alkaline Phosphatase 129 39-117 U/L H IRON PROFILE Reviewed date:03/09/2025 08:59:57 AM Interpretation: Performing Lab:[facility], [address] [place] [phone] Notes/Report: Iron 68 45-160 mcg/dL N Total Iron Binding Capacity 191 228-428 mcg/dL L Percent Iron Saturation 36 15-50 % N Unsaturated Iron Binding 123 Ferritin Reviewed date:03/09/2025 08:59:57 AM Interpretation: Performing Lab:[facility], [address] [place] [phone] Notes/Report: Ferritin 345 20-250 ng/mL H Liver Fibrosis Pnl Reviewed date:03/16/2025 10:24:17 PM Interpretation: Performing Lab:[facility], [address] [place] [phone] Notes/Report: Liver Fibrosis Score 0.80 Liver Fibrosis Stage F4 Liver Fibrosis Interpretation SEE NOTE severe fibrosis Fibro Test Score (f) Metavir Score f>=0 and f<=0.21 : F0 (no fibrosis) f>0.21 and f<=0.27 : F0-F1 (no fibrosis) f>0.27 and f<=0.31 : F1 (minimal fibrosis) f>0.31 and f<=0.48 : F1-F2 (minimal fibrosis) f>0.48 and f<=0.58 : F2 (moderate fibrosis) f>0.58 and f<=0.72 : F3 (advanced fibrosis) f>0.72 and f<=0.74 : F3-F4 (advanced fibrosis) f>0.74 and f<=1.00 : F4 (severe fibrosis) Nec Inflam Act Score 0.05 Nec Inflam Act Grade A0 Nec Inflam Act Interpretation SEE NOTE no activity ActiTest Score (a) Metavir Score a>=0 and a<=0.17 : A0 (no activity) a>0.17 and a<=0.29 : A0-A1 (no activity) a>0.29 and a<=0.36 : A1 (minimal activity) a>0.36 and a<=0.52 : A1-A2 (minimal activity) a>0.52 and a<=0.60 : A2 (significant activity) a>0.60 and a<=0.62 : A2-A3 (significant activity) a>0.62 and a<=1.00 : A3 (severe activity) OCQ-Nqcfn-9-Macroglobulin 203 106-279 mg/dL FIB-Haptoglobin 123 43-212 mg/dL FIB-Apolipoprotein A1 122 94-176 mg/dL FIB-Total Bilirubin 1.9 0.2-1.2 mg/dL A FIB-GGT 150 3-70 U/L A FIB-ALT 10 9-46 U/L Reference ID [id number] Footnote SEE NOTE The reliability of results is dependent on compliance with the preanalytical and analytical conditions recommended by [employer] The tests have to be deferred for: acute hemolysis, acute hepatitis, acute inflammation, extra hepatic cholestasis. The advice of a specialist should be sought for interpretation in chronic hemolysis and Gilbert's syndrome. The test interpretation is not validated in liver transplant patients. Isolated extreme values of one of the components should lead to caution in interpreting the results. In case of discordance between a biopsy result and a test, it is recommended to seek the advice of a specialist. The causes of these discordances could be due to a flaw of the test or to a flaw in the biopsy: i.e. a liver biopsy has a 33% variability rate for one fibrosis stage. FibroTest is interpretable for chronic hepatitis B and C, alcoholic and non alcoholic steatosis. ActiTest is interpretable for chronic hepatitis B and C. The performance characteristics have been determined by [facility]. It has not been cleared or approved by the U.S. Food and Drug Administration. Performance characteristics refer to the analytical performance of the test. e-volo, the associated logo, Centaur and all associated [employer] del valle are the registered trademarks of [employer]. All third green party del valle - (R) and (TM) - are the property of their respective owners. (C) 1536-2592 [employer]. All rights reserved. THIS TEST WAS PERFORMED AT: [employer] [facility] [place] [address] [place] [address] LIANA LAURA MD,PHD,BRYANT Mitochondrial Antibody Reviewed date:03/12/2025 10:08:53 AM Interpretation: Performing Lab:[address] [phone] Notes/Report: Mitochondrial Antibodies NEGATIVE NEGATIVE N THIS TEST WAS PERFORMED AT: [employer] [address] [address] PONOAM MILAN MD Mitochondrial Ab Titer TNP Smooth Muscle Antibody Reviewed date:03/12/2025 10:08:43 AM Interpretation: Performing Lab:[address] [phone] Notes/Report: Smooth Muscle Antibody <20 <20 U Reference Range: <20 U: Negative >or=20 U: Positive Antibodies recognizing actin are the main component of smooth muscle antibodies associated with auto- immune liver disease. Actin antibodies are found in approximately 75% of patients with autoimmune hepatitis (AIH) type 1, approximately 65% of patients with autoimmune cholangitis, approximately 30% of patients with primary biliary cirrhosis and approximately 2% of healthy controls. High values are closely correlated with AIH type 1. THIS TEST WAS PERFORMED AT: [employer]/[address] [address] ANTON DIETZ MD,PHD Hepatitis A,B,C Profile Reviewed date:03/09/2025 08:59:57 AM Interpretation: Performing Lab:[address] [phone] Notes/Report: Hepatitis A Antibody IgM Nonreactive Nonreactive IgM antibodies to HAV not detected; does not exclude early acute or recovered HAV infection. Hepatitis B Surface Antibody NONREACTIVE Nonreactive Nonreactive: < 8 .00 mIU/mL Hepatitis B Core Antibody Nonreactive Nonreactive Hepatitis C Antibody Nonreactive Nonreactive Antibodies to HCV not detected; does not exclude early acute HCV infection. Hepatitis B Surface Antigen Negative Negative TARIK Reflex Titer and Pattern Reviewed date:03/11/2025 08:38:42 AM Interpretation: Performing Lab:[facility], [address] [place] [phone] Notes/Report: Anti Nuclear Antibody Screen NEGATIVE NEGATIVE N TARIK IFA is a first line screen for detecting the presence of up to approximately 150 autoantibodies in various autoimmune diseases. A negative TARIK IFA result suggests an TARIK-associated autoimmune disease is not present at this time, but is not definitive. If there is high clinical suspicion for Sjogren's syndrome, testing for anti-SS-A/Ro antibody should be considered. Anti-Juliane-1 antibody should be considered for clinically suspected inflammatory myopathies. AC-0: Negative International Consensus on TARIK Patterns (https://doi.org/10.1515/ lalf-0245-0868) For additional information, please refer to http://education.OpenCurriculum/faq/BYC110 (This link is being provided for informational/ educational purposes only.) THIS TEST WAS PERFORMED AT: [employer] [address] [place] [phone] POONAM MILAN MD Anti Nuclear Antibody Titer TNP Anti Nuclear Antibody Pattern TNP TARIK Titer 2 TNP TARIK Pattern 2 TNP TARIK Titer 3 TNP TARIK Pattern 3 TNP Reason For Referral No Information Medications Medication SIG (Take, Route, Frequency, Duration) Notes Start Date End Date Status Flecainide Acetate 150 MG Tablet 1 tablet Orally every 12 hrs Active MiraLax (colon prep) 17 GM/SCOOP Powder mixed with Gatorade or Crystal Light Orally begin at 5:00 p.m. the day before the procedure; Duration: 1 day 01/30/2024 Active Eliquis 5 MG Tablet Oral; Duration: Active Gabapentin 300 MG Capsule Oral; Duration: 30 Active Omeprazole 20 MG Capsule Delayed Release Oral; Duration: Active amLODIPine Besylate 2.5 MG Tablet Oral; Duration: Active Metoprolol Succinate ER 50 MG Tablet Extended Release 24 Hour 1 tablet Orally Once a day A ctive Social History Social History Additional Details Category Social Info Options Details Miscellaneous: Marital status: Occupation: [employer]/ ret ired Problems Problem Type SNOMED Code ICD Code Onset Dates Problem Status W/U Status Risk Notes Problem Colon cancer screening (501213291) Colon cancer screening (Z12.11) Active confirmed Problem Long-term current use of anticoagulant (984202306) 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) Active confirmed Problem Pre-procedure evaluation check (493991611) Encounter for other preprocedural examination (Z01.818) Active confirmed Encounters Encounter Location Date Provider Diagnosis [facility] [address] [place] [phone] 02/17/2025 John Austin Jr Elevated LFTs R79.89 [facility] [address] [place] [phone] 03/16/2025 John Austin Jr [facility] [address] [place] [phone] 03/16/2025 John Austin Jr Assessments Encounter Date Diagnosis (ICD Code) Assessment Notes Treatment Notes Treatment Clinical Notes Section Notes 02/17/2025 Elevated LFTs (ICD-10 - R79.89) Plan Of Treatment Pending Test Test Name Order Date LIVER PROFILE 02/17/2025 IRON + IBC (FE) 02/17/2025 FERRITIN 02/17/2025 HEPATITIS A,B,C PROFILE 02/17/2025 MITOCHONDRIAL AB 02/17/2025 SMOOTH MUSCLE ANTIBODIES 02/17/2025 Liver Fibrosis Pnl 02/17/2025 TARIK Reflex Titer and Pattern 02/17/2025 US abdomen comp w elastography US abdomen comp w elastography Future Test Test Name Order Date COLONOSCOPY 02/11/2014 COLONOSCOPY 01/17/2018 COLONOSCOPY 01/30/2024 Next Appt Details Provider Name:John matthew Jr, 04/08/2025 11:20:00 AM, [address], [address], [place], [address], Insurance Providers Payer Name Payer Address Payer Phone Subscriber Number Group Number Insured Name Patient Relationship to Insured Coverage Start Date Coverage End Date MEDICARE OF [place] [address] [place] [address] [phone] [id number] ONIEL BOYER Self - patient is the insured [facility] [address] [place] [address] [phone] [id number] ONIEL BOYER Self - patient is the insured Medical (General) History Medical History History ICD Code Colonoscopy, 07/19, normal, five-year fol lowup Atrial fibrillation Acne Prostate cancer, status post XRT Gastroesophageal reflux disease Hypertension Hyperlipidemia Surgical History Surgery Date(Month/Year) ablation x2 complicated by a blood clot
== END 2025-03-20 13:55 | disposition home or self-care (01) ==
LOC: HO.US 13:54
PROVIDERS: PCP Pediatrics; Visit Provider Internal Medicine Gastroenterology
DX: R79.89 Other specified abnormal findings of blood chemistry (principal)
CPT/HCPCS: 76700; 76981

== ENCOUNTER → 2025-03-20 14:20 | Outpatient (BNV) | payer MEDICARE, OTHER, SELFPAY | PROVIDERS: PCP Pediatrics; Visit Provider Radiology Diagnostic Radiology | DX: K76.89 Other specified diseases of liver (principal) | CPT/HCPCS: 76700 ==